=== PATIENT | male | born 1960 | race Caucasian/White ===

== ENCOUNTER 2017-01-24 06:23 | Emergency (ER) | payer OTHER ==
[2017-01-24 06:38] VITALS: BP 187/94; PULSE 97; TEMP 98.9; BMI 26.4
[2017-01-24] MEDS ORDERED: ALBUTEROL SO4 0.083% IH SOL 2.5 MG/3 ML VIAL.NEB. NEB ONE ×2 (07:13→07:46)
[2017-01-24] MEDS ORDERED: diphenhydrAMINE HCL 25 MG CAPSULE (FP) PO ONE ×2 (07:13→07:46)
[2017-01-24] MEDS ORDERED: ACETAMINOPHEN 325 MG TABLET (FP) PO ONE (07:19)
--- NOTE | 2017-01-24 07:20 | PDOC ---
History of Present Illness - General History Source: Patient Exam Limitations: No Limitations - History of Present Illness Initial Comments: 01/24/17 07:25 The patient is a 56 year old male, with a significant past medical history of HTN, who presents to the emergency department with rash and SOB today. The patient reports waking up this morning symptomatic, noting to have a rash across his chest accompanied with SOB. The patient reports his building recently being sprayed with pesticide, to treat a massey problem. He reports since the treatments of pesticide having intermittent episodes of SOB. He also arrives with complaints of a headache. He denies any new soaps, strange foods, or lotions. The patient is here also complaining of right knee pain for which he is scheduled for a TKR within these next couple of months. He denies any recent fevers, chills, or dizziness. He denies any recent nausea, vomit, diarrhea or constipation. He denies any recent chest pain. He denies any recent dysuria, frequency, urgency or hematuria. Allergies: NKA Past surgical history: LEFT TKR. Social History: Former smoker. Denies EtOH use and recreational drug use. <Pierce Lau - Last Filed: 01/24/17 09:50> - General History Source: Patient Exam Limitations: No Limitations <Gio Castellano - Last Filed: 01/25/17 08:07> - General Chief Complaint: Rash Stated Complaint: SOB, RASH Time Seen by Provider: 01/24/17 07:07 Past History <Pierce Lau - Last Filed: 01/24/17 09:50> - Psycho/Social/Smoking Cessation Hx Suicidal Ideation: No Smoking History: Former smoker Have you smoked in the past 12 months: No Information on smoking cessation initiated: No Hx Alcohol Use: No Drug/Substance Use Hx: No <Gio Castellano - Last Filed: 01/25/17 08:07> - Past Medical History Allergies/Adverse Reactions: Allergies Allergy/AdvReac Type Severity Reaction Status Date / Time morphine Allergy Severe Rash;ITCHIN Verified 12/05/16 10:00 G Home Medications: Ambulatory Orders Oxycodone HCl 10 mg PO TID PRN 12/05/16 Albuterol Sulfate Inhaler - [Ventolin HFA Inhaler -] 1 - 2 inh PO Q4H PRN #1 inhaler 01/24/17 Diphenhydramine HCl [Benadryl -] 25 mg PO Q8H PRN #21 capsule 01/24/17 Review of Systems - Review of Systems Able to Perform ROS?: Yes Comments:: 01/24/17 07:25 GENERAL/CONSTITUTIONAL: No fever or chills. No weakness. HEAD, EYES, EARS, NOSE AND THROAT: No change in vision. No ear pain or discharge. No sore throat. CARDIOVASCULAR: +SOB. No chest pain RESPIRATORY: No cough, wheezing, or hemoptysis. GASTROINTESTINAL: No nausea, vomiting, diarrhea or constipation. GENITOURINARY: No dysuria, frequency, or change in urination. MUSCULOSKELETAL: +right knee pain. No joint or muscle swelling or pain. No neck or back pain. SKIN: +rash. NEUROLOGIC: +headache No vertigo, loss of consciousness, or change in strength/ sensation. ENDOCRINE: No increased thirst. No abnormal weight change. HEMATOLOGIC/LYMPHATIC: No anemia, easy bleeding, or history of blood clots. ALLERGIC/IMMUNOLOGIC: No hives or skin allergy. <Pierce Lau - Last Filed: 01/24/17 09:50> *Physical Exam - Vital Signs Last Vital Signs Temp Pulse Resp BP Pulse Ox 98.9 F 97 H 21 187/94 100 01/24/17 06:36 01/24/17 06:36 01/24/17 06:36 01/24/17 06:36 01/24/17 06:36 - Physical Exam Comments: 01/24/17 07:26 GENERAL: Awake, alert, and fully oriented, in no acute distress HEAD: No signs of trauma EYES: PERRLA, EOMI, sclera anicteric, conjunctiva clear ENT: Auricles normal inspection, hearing grossly normal, nares patent, oropharynx clear without exudates. Moist mucosa NECK: Normal ROM, supple, no lymphadenopathy, JVD, or masses LUNGS: Very slight expiratory wheezing and no crackles HEART: Regular rate and rhythm, normal S1 and S2, no murmurs, rubs or gallops ABDOMEN: Soft, nontender, normoactive bowel sounds. No guarding, no rebound. No masses EXTREMITIES: Normal range of motion, no edema. No clubbing or cyanosis. No cords, erythema, or tenderness NEUROLOGICAL: Cranial nerves II through XII grossly intact. Normal speech, normal gait SKIN: Warm, Dry, normal turgor, Mildly erythematous markings on the anterior chest. Non pruritic, and nontender <Pierce Lau - Last Filed: 01/24/17 09:50> - Vital Signs Last Vital Signs Temp Pulse Resp BP Pulse Ox 98.9 F 97 H 21 187/94 100 01/24/17 06:36 01/24/17 06:36 01/24/17 06:36 01/24/17 06:36 01/24/17 06:36 <Gio Castellano - Last Filed: 01/25/17 08:07> Heart Score/ECG Review #1 ECG reviewed & interpreted by me at: 07:20 01/24/17 07:59 NSR 98, no std/anum, submm STD II, III, avF, V6, no anum, QTC 436 msec #2 ECG reviewed & interpreted by me at: 09:30 01/24/17 09:47 NSR 83, STD (RESOLVED) in II, III, avF, and V6, no anum, T wave flat avL, QTC 444 msec <Gio Castellano - Last Filed: 01/25/17 08:07> ED Treatment Course - LABORATORY CBC & Chemistry Diagram: 01/24/17 07:22 01/24/17 07:22 - RADIOLOGY Radiograph Interpretation: 01/24/17 08:11 CHEST X-RAY impressions reported by : NO evidence of active pulmonary disease. <Pierce Lau - Last Filed: 01/24/17 09:50> - LABORATORY CBC & Chemistry Diagram: 01/24/17 07:22 01/24/17 07:22 - RADIOLOGY Radiology Studies Ordered: Category Date Time Status CHEST PA & LAT [RAD] Stat Radiology 01/24/17 07:13 Ordered <Gio Castellano - Last Filed: 01/25/17 08:07> Medical Decision Making - Medical Decision Making 01/24/17 08:45 Call made to [phone], awaiting call back. 01/24/17 08:54 Call back from , case discussed. <Pierce Lau - Last Filed: 01/24/17 09:50> - Medical Decision Making 01/24/17 07:58 A portion of this note was documented by scribe services under my direction. I have reviewed the details of the note, within reason, and agree with the documentation with the following case summary and management plan written by me. Patient treated in the ED. Nursing notes are reviewed and incorporated into the medical decision-making. Vital signs reviewed. Peripheral IV access obtained by the nurse, laboratory studies are drawn and sent, reviewed and interpreted by myself. Vital Signs Temp Pulse Resp BP Pulse Ox 98.9 F 97 H 21 187/94 100 01/24/17 06:36 01/24/17 06:36 01/24/17 06:36 01/24/17 06:36 01/24/17 06:36 56-year-old male with history of hypertension and arthritis presents with shortness of breath and rash. The patient reports in the last several months she 's been having intermittent difficulty breathing and nonpruritic nonpainful rash on his chest. States that he believes this is related to the pesticide spraying that they do in the department. The patient denies chest pain. States that the smell is irritating him and giving a mild tension-like headache. States that the rash on his chest is not itchy. Denies any new other exposures including new shampoos, new soaps, new detergents. There is some very faint expiratory wheezing and the rash symptoms may be secondary to reaction from the pesticide. However, we'll obtain a chest x-ray, labs, EKG, carboxyhemoglobin. Trial Benadryl and albuterol and reassess. 01/24/17 10:14 CBC, BMP 01/24/17 07:22 01/24/17 07:22 CMP Sodium 137 mmol/L (136-145) 01/24/17 07:22 Potassium 3.9 mmol/L (3.5-5.1) 01/24/17 07:22 Chloride 104 mmol/L (98-107) 01/24/17 07:22 Carbon Dioxide 21 mmol/L (21-32) 01/24/17 07:22 Anion Gap 12 (8-16) 01/24/17 07:22 BUN 20 mg/dL (7-18) H 01/24/17 07:22 Creatinine 1.5 mg/dL (0.7-1.3) H 01/24/17 07:22 Creat Clearance w eGFR 48.41 (>60) 01/24/17 07:22 Random Glucose 197 mg/dL (74-106) H 01/24/17 07:22 Calcium 8.7 mg/dL (8.5-10.1) 01/24/17 07:22 Total Bilirubin 0.9 mg/dL (0.2-1.0) 01/24/17 07:22 AST 19 U/L (15-37) 01/24/17 07:22 ALT 34 U/L (12-78) 01/24/17 07:22 Alkaline Phosphatase 94 U/L (45-117) 01/24/17 07:22 Creatine Kinase 93 IU/L (39-308) 01/24/17 07:22 Troponin I 0.02 ng/ml (0.00-0.05) 01/24/17 07:22 Total Protein 7.4 g/dl (6.4-8.2) 01/24/17 07:22 Albumin 4.1 g/dl (3.4-5.0) 01/24/17 07:22 The patient had dynamic EKG changes. Case was discussed with Dr. Walsh, cardiology, who agrees with plan for admission to telemetry. However, the patient diffuse to be admitted to the hospital. He states even with the EKG changes, the patient is not interested in staying given that he is a dog at home. I had given the risks that the patient is at risk for myocardial infarction and . Patient is however upset that I was unable to draw blood tests stating that he had pesticides in his blood. The patient appears to be frustrated that his blood work does not demonstrate any acute finding. I had advised patient that these certain types of blood test to not work that way that certain exposures such as sprays for cockroaches do not show up and blood tests work. The patient has become very upset at me and angry. He states that "he knows there is something wrong with the home, why aren't you telling me the answers?" I suspect that the patient is not the most medically sophisticated as he insists that the blood tests should tell him the answer. Despite the fact that I highly and strongly recommended that he be admitted for further testing, the patient is refusing to be admitted because of his dog at home. After 3 attempts and nearly 10-15 minutes of each discussion regarding the risks and benefits, the patient would like to leave AGAINST MEDICAL ADVICE. He does have capacity despite the situation. I will give referral to a inductor tester and web systems developer and general practitioner. <Gio Castellano - Last Filed: 01/25/17 08:07> *DC/Admit/Observation/Transfer - Attestations Scribe Attestion: 01/24/17 07:27 Documentation prepared by Pierce Lau, acting as medical reception for Gio Castellano MD. <Pierce Lau - Last Filed: 01/24/17 09:50> - Discharge Dispostion Admit: No <Gio Castellano - Last Filed: 01/25/17 08:07> Diagnosis at time of Disposition: Left against medical advice, Shortness of breath - Discharge Dispostion Disposition: AGAINST MEDICAL ADVICE Condition at time of disposition: Stable - Prescriptions Prescriptions: Diphenhydramine HCl [Benadryl -] 25 mg PO Q8H PRN #21 capsule PRN Reason: Itching Albuterol Sulfate Inhaler - [Ventolin HFA Inhaler -] 1 - 2 inh PO Q4H PRN #1 inhaler PRN Reason: Wheezing - Referrals Referrals: Jayden Barrera MD [Staff Physician] - Micheal Walsh MD [Staff Physician] - - Patient Instructions Printed Discharge Instructions: DI for Shortness of Breath Additional Instructions: You are leaving against medical advice. We advise that you speak to your super regarding the spray. Please follow up with a web systems developer and inductor tester. If you have worsening chest pain or shortness of breath, please return to the ER.
[2017-01-24 07:35] LABS: BASOPHIL 0.4 % (0-2.0); EOSINOPHIL 2.4 % (0-4.5); MCH 30.3 pg (25.7-33.7); MCHC 33.5 g/dl (32.0-35.9); MEAN CELL VOLUME 90.6 fl (80-96); MEAN PLT VOLUME 8.8 fl (7.5-11.1); NEUTROPHILS 66.5 % (42.8-82.8); PLATELET COUNT 220 K/MM3 (134-434); RDW 13.6 % (11.9-15.9); WHITE BLOOD COUNT 10.6 K/mm3 (4.0-10.0)
[2017-01-24] MEDS ORDERED: ACETAMINOPHEN 325 MG TABLET (FP) ONE (07:45)
[2017-01-24 07:56] LABS: ALLENS TEST POSITIVE; ART PUNCT SITE RIGHT RADIAL; ARTERIAL BLD GAS O2 SATURATION 97.1 % (90-98.9); ARTERIAL BLOOD GAS BASE EXCESS -1.5 meq/l (-2-2); ARTERIAL BLOOD GAS HCO3 22.9 meq/L (22-26); ARTERIAL BLOOD GAS PO2 87.1 mmHg (80-100); ARTERIAL BLOOD GAS pH 7.38 (7.35-7.45); LPM/O2% 21%; METHEMOGLOBIN 0.5 % (0.4-1.5); PT. ON O2? NO; TYPE OF O2 ROOM AIR
[2017-01-24 08:13] LABS: ALBUMIN 4.1 g/dl (3.4-5.0); BILIRUBIN,TOTAL 0.9 mg/dL (0.2-1.0); CALCIUM 8.7 mg/dL (8.5-10.1); COCKROFT - GAULT 70.55; CREATININE 1.5 mg/dL (0.7-1.3); TOT PROT 7.4 g/dl (6.4-8.2); TROPONIN I 0.02 ng/ml (0.00-0.05)
--- NOTE | 2017-01-24 13:06 | EKG ---
Test Reason : Blood Pressure : / mmHG Vent. Rate : 083 BPM Atrial Rate : 083 BPM P-R Int : 130 ms QRS Dur : 094 ms QT Int : 378 ms P-R-T Axes : 059 037 050 degrees QTc Int : 444 ms NORMAL SINUS RHYTHM POSSIBLE ANTERIOR INFARCT , AGE UNDETERMINED ABNORMAL ECG WHEN COMPARED WITH ECG OF 24-JAN-2017 07:18, T WAVE INVERSION NO LONGER EVIDENT IN INFERIOR LEADS Confirmed by JAIME GERARDO, DANIEL ([id number]) on 01/24/2017 1:06:13 PM Referred By: Confirmed By:DANIEL SANDOVAL MD
--- NOTE | 2017-01-24 13:07 | EKG ---
Test Reason : Blood Pressure : / mmHG Vent. Rate : 098 BPM Atrial Rate : 098 BPM P-R Int : 134 ms QRS Dur : 088 ms QT Int : 342 ms P-R-T Axes : 071 050 -73 degrees QTc Int : 436 ms NORMAL SINUS RHYTHM POSSIBLE LEFT ATRIAL ENLARGEMENT ABNORMAL ECG NO PREVIOUS ECGS AVAILABLE Confirmed by DANIEL SANDOVAL MD ([id number]) on 01/24/2017 1:07:23 PM Referred By: Confirmed By:DANIEL SANDOVAL MD
== END 2017-01-24 10:30 | disposition left against medical advice (07) ==
LOC: JER 06:23
PROC: 3E0F7GC Introduction of Other Therapeutic Substance into Respiratory Tract, Via Natural or Artificial Opening (ICD-10-PCS; principal; 2017-01-24)
DX: R06.02 Shortness of breath (principal); I10 Essential (primary) hypertension; Z87.891 Personal history of nicotine dependence; Z88.8 Allergy status to other drugs, medicaments and biological substances
CPT/HCPCS: 36415; 36600; 71020-TC; 80053; 82375; 82550; 82803; 83050; 84484; 85025; 93005; 93010; 99282-25

== ENCOUNTER 2018-03-16 03:53 | Inpatient (IN) | payer OTHER ==
--- NOTE | 2018-03-16 04:04 | PDOC ---
History of Present Illness - History of Present Illness Initial Comments: 03/16/18 04:28 This 57-year-old man with a past medical history significant for hypertension/ COPD/CAD/CHF/paroxysmal atrial flutter, discharged from [facility] 03/14/18 after a 4 day admission presents with complaint of shortness of breath. Patient states that he had sudden onset of shortness of breath when he was lying in bed at home just prior to presentation. He denies chest pain/ palpitations/cough/fever. He states he has been taking his medications as prescribed except eliquis which is too expensive. <Rajwinder Muller - Last Filed: 03/16/18 07:10> <Amee Kessler - Last Filed: 03/16/18 15:54> - General Chief Complaint: Shortness of Breath Stated Complaint: SOB/ANXIETY Time Seen by Provider: 03/16/18 04:04 Past History - Past Medical History COPD: No Psychiatric Problems: Yes (DEPRESSION) - Surgical History Gastric Stapling: No - Suicide/Smoking/Psychosocial Hx Smoking History: Current every day smoker Have you smoked in the past 12 months: Yes Number of Cigarettes Smoked Daily: 2 'Breaking Loose' booklet given: 03/11/18 Hx Alcohol Use: Yes (social) Drug/Substance Use Hx: No Substance Use Type: None <Rajwinder Muller - Last Filed: 03/16/18 07:10> <Amee Kessler - Last Filed: 03/16/18 15:54> - Past Medical History Allergies/Adverse Reactions: Allergies Allergy/AdvReac Type Severity Reaction Status Date / Time morphine Allergy Severe Rash;ITCHIN Verified 03/16/18 09:27 G Home Medications: Ambulatory Orders Apixaban [Eliquis -] 5 mg PO BID #60 tablet 03/14/18 Carvedilol [Coreg -] 12.5 mg PO BID #60 tablet 03/14/18 Prednisone [Deltasone] See Taper PO ASDIR #21 tablet 03/14/18 Spironolactone [Aldactone -] 25 mg PO DAILY #30 tablet 03/14/18 Valsartan [Diovan] 80 mg PO DAILY #30 tablet 03/14/18 Review of Systems - Review of Systems Able to Perform ROS?: Yes Comments:: 12 point review of systems is negative except for what is noted in the history of present illness <Rajwinder Muller - Last Filed: 03/16/18 07:10> *Physical Exam - Physical Exam Comments: GENERAL: Adult male, diaphoretic and anxious, speaking in partial sentences complaining of shortness of breath Pulse oximetry 95 - 96% on room air; heart rate 150/min, BP 122/82 HEAD: Normal with no signs of trauma. EYES: PERRLA, EOMI, sclera anicteric, conjunctiva clear. ENT: Ears normal, nares patent, oropharynx clear without exudates. Dry mucous membranes. NECK: Normal range of motion, supple without lymphadenopathy, JVD, or masses. LUNGS: Breath sounds equal, inspiratory crackles/scattered expiratory wheezing bilaterally HEART:Regular rate and rhythm, normal S1 and S2 without murmur, rub or gallop. ABDOMEN:.normal bowel sounds No guarding,tenderness or rebound.No masses No distention. neurological deficits. Multiple ecchymotic puncture wound secondary to SQ administration MUSCULOSKELETAL: Back non-tender to palpation, no CVA tenderness SKIN: Warm, Dry, normal turgor, no rashes or lesions noted. 12-lead electrocardiogram performed : Atrial fibrillation with rapid ventricular response,171/min <Rajwinder Muller - Last Filed: 03/16/18 07:10> - Vital Signs Last Vital Signs Temp Pulse Resp BP Pulse Ox 99 F 142 H 24 122/58 99 03/16/18 03:56 03/16/18 06:59 03/16/18 06:25 03/16/18 06:59 03/16/18 05:56 <Amee Kessler - Last Filed: 03/16/18 15:54> ED Treatment Course - LABORATORY CBC & Chemistry Diagram: 03/16/18 04:55 03/16/18 04:55 <Rajwinder Muller - Last Filed: 03/16/18 07:10> - LABORATORY CBC & Chemistry Diagram: 03/16/18 04:55 03/16/18 09:04 - ADDITIONAL ORDERS Additional order review: Laboratory Results 03/16/18 03/16/18 04:55 04:55 PT with INR 13.50 H INR 1.19 H Sodium 134 L Potassium 5.5 H Chloride 101 Carbon Dioxide 24 Anion Gap 9 BUN 42 H Creatinine 1.7 H Creat Clearance w eGFR 41.75 Random Glucose 174 H Calcium 9.0 Total Bilirubin 0.6 AST 18 D ALT 36 Alkaline Phosphatase 116 Creatine Kinase 110 Troponin I 0.22 H Total Protein 7.1 Albumin 3.1 L 03/16/18 04:55 RBC 4.40 MCV 92.4 MCHC 33.2 RDW 14.0 MPV 8.3 Neutrophils % 77.2 Lymphocytes % 12.5 D Monocytes % 9.9 D Eosinophils % 0.3 D Basophils % 0.1 - Medications Given in the ED: ED Medications Discontinued Medications Generic Name Dose Route Start Last Admin Trade Name Freq PRN Reason Stop Dose Admin Apixaban 5 mg 03/16/18 06:20 03/16/18 06:24 Eliquis - PO 03/16/18 06:21 5 mg ONCE ONE Administration Diltiazem HCl 10 mg 03/16/18 05:05 03/16/18 05:10 Cardizem Injection - IVPUSH 03/16/18 05:06 10 mg ONCE ONE Administration Diltiazem HCl 10 mg 03/16/18 05:59 03/16/18 06:02 Cardizem Injection - IVPUSH 03/16/18 06:00 10 mg ONCE ONE Administration Ondansetron HCl 4 mg 03/16/18 05:48 03/16/18 05:56 Zofran Injection IVPUSH 03/16/18 05:49 4 mg ONCE ONE Administration <Amee Kessler - Last Filed: 03/16/18 15:54> Medical Decision Making - Medical Decision Making 03/16/18 05:11 This 57-year-old man with history of A. fib/LV dysfunction presents with shortness of breath. EKG reveals A. fib with RVR 170/minute range. Patient has some fine rhonchi/scattered wheezing on lung exam. CBC/chemistry profile/cardiac enzymes sent Cardizem 10 mg IV to be administered for rate control 03/16/18 05:38 Patient continues to be in atrial fibrillation at a rate of 140-150/minute after first dose of Cardizem 10 mg IV. Patient decided to sign out AGAINST MEDICAL ADVICE and IV access was removed. Patient signed AMA form stating that he will was going to proceed to [facility] ER for further care, with his niece driving him to the hospital. Patient returned to the ER approximately 5 minutes later, stating that he now wanted to be treated here 03/16/18 06:01 IV access reestablished. Patient complaining of nausea. 4 mg Zofran IV given. Vital signs: Heart rate 144/minute, BP 126/87, pulse oximetry 97% on 4l/min Additional 10 mg Cardizem IV given Portable chest x-ray: As compared to previous study this 03/11/18, some increase in cephalization of flow and new right lower lobe patchy infiltrate 03/16/18 06:29 A. fib at 150/minute persists; Cardizem continuous infusion 5 mg per hr started bp114/72 Labs notable for troponin is 0.22 , BUN 42/creatinine 1.7 ,K 5.5, WBC 14,[address] Clayton in ICU at [facility]: Critical patient from ER at [facility] will likely take only bed open now but there is possibility of an additional ICU bed being available soon. Also, this patient may be stable enough for admission to telemetry bed. Cardiology consult called to Dr Burrell. Case discussed with MIGUELINA Almazan Case signed out to Dr Kessler at end of shift <Rajwinder Muller - Last Filed: 03/16/18 07:10> - Medical Decision Making 03/16/18 07:26 Patient signed out to me by Dr. Muller at shift change. Accepted to hospitalist service, ICU at [facility]. Awaiting bed placement. Currently on cardizem drip. 03/16/18 07:54 Case d/w Dr. Mesa, covering Dr. Burrell. Recommended lopressor 5 mg IV in addition to the cardizem drip. Will evaluate the patient at [facility]. 03/16/18 08:07 Pt with hypotension, will hold cardizem drip and recheck BP. 03/16/18 12:43 Pt was restarted on cardizem drip, again developed hypotension. Drip held again. D/w hospitalist JOSEPHINE Sims. 03/16/18 13:08 Pt spontaneously converted back to sinus rhythm. BP improving, MAP >65. Will cont to monitor. <Amee Kessler - Last Filed: 03/16/18 15:54> *DC/Admit/Observation/Transfer <Rajwinder Muller - Last Filed: 03/16/18 07:10> - Discharge Dispostion Decision to Admit order: Yes <Amee Kessler - Last Filed: 03/16/18 15:54> Diagnosis at time of Disposition: Shortness of breath, Paroxysmal atrial fibrillation, Systolic dysfunction with heart failure - Discharge Dispostion Condition at time of disposition: Critical
[2018-03-16 04:06] VITALS: BMI 29.0
[2018-03-16] MEDS ORDERED: dilTIAZem HCL 50 MG/10 ML - 10 ML VIAL ONE ×2 (05:05→06:13)
[2018-03-16] MEDS ORDERED: dilTIAZem HCL 50 MG/10 ML - 10 ML VIAL IVPUSH ONE ×2 (05:05→05:59)
[2018-03-16 05:39] LABS: BASO % 0.1 % (0-2.0); EOS % 0.3 % (0-4.5); HEMATOCRIT 40.7 % (35.4-49); HEMOGLOBIN 13.5 GM/dL (11.7-16.9); LYMPH % 12.5 % (8-40); MCH 30.6 pg (25.7-33.7); MCHC 33.2 g/dl (32.0-35.9); MEAN CELL VOLUME 92.4 fl (80-96); MEAN PLT VOLUME 8.3 fl (7.5-11.1); MONO % 9.9 % (3.8-10.2); NEUT % 77.2 % (42.8-82.8); PLATELET COUNT 618 K/MM3 (134-434); WHITE BLOOD COUNT 14.2 K/mm3 (4.0-10.0)
[2018-03-16] MEDS ORDERED: ONDANSETRON 4 MG/2 ML VIAL IVPUSH ONE (05:48)
[2018-03-16] MEDS ORDERED: ONDANSETRON 4 MG/2 ML VIAL ONE (05:50)
[2018-03-16 05:59] LABS: INR 1.19 (0.83-1.09); PROTHROMBIN TIME (PATIENT) 13.5 SEC (9.7-13.0)
[2018-03-16] MEDS ORDERED: APIXABAN 5 MG TABLET PO ONE (06:20)
[2018-03-16] MEDS ORDERED: DILTIAZEM INJECTION 125 MG in DEXTROSE 5%-WATER - 100 ML IVPB SCH (06:30)
[2018-03-16 06:31] LABS: ALBUMIN 3.1 g/dl (3.4-5.0); ANION GAP 9 (8-16); BILIRUBIN,TOTAL 0.6 mg/dL (0.2-1.0); BLOOD UREA NITROGEN 42 mg/dL (7-18); CHLORIDE 101 mmol/L (98-107); CO2 24 mmol/L (21-32); CREATININE 1.7 mg/dL (0.7-1.3); GLUCOSE,RANDOM 174 mg/dL (74-106); POTASSIUM 5.5 mmol/L (3.5-5.1); SGOT/AST 18 U/L (15-37); SGPT/ALT 36 U/L (12-78); SODIUM 134 mmol/L (136-145); TOT PROT 7.1 g/dl (6.4-8.2)
[2018-03-16 06:34] LABS: ALK PHOS 116 U/L (45-117)
[2018-03-16] MEDS ORDERED: SODIUM CHLORIDE 500 ML IV STA (06:58)
[2018-03-16 08:17] LABS: URINE APPEARANCE CLEAR; URINE BILIRUBIN NEGATIVE (NEGATIVE); URINE COLOR AMBER; URINE GLUCOSE (UA) NEGATIVE (NEGATIVE)
[2018-03-16 08:18] LABS: PH,URINE 5.5 (4.5-8); URINE KETONE NEGATIVE (NEGATIVE); URINE LEUK ESTERASE NEGATIVE (NEGATIVE); URINE NITRITE NEGATIVE (NEGATIVE); URINE PROTEIN 1+ (NEGATIVE); URINE UROBILINOGEN 0.2 (0.2-1.0)
[2018-03-16 08:54] LABS: URINE WBC 0-2 (0-2)
--- NOTE | 2018-03-16 08:58 | HP ---
CHIEF COMPLAINT: Shortness of breath PCP: None HISTORY OF PRESENT ILLNESS: 57 year-old male with a PMH significant for HTN, biventricular heart failure, paroxysmal afib, CAD, CKD, DJD s/p recent right knee replacement at [facility], depression, anxiety, and substance abuse. Patient was hospitalized at [facility] from 03/11-03/14/18 for afib and SOB. He presented to the [place] ED early this morning with a complaint of SOB while lying in bed. Initial ECG revealed afib with RVR to 170bpm. Treatment was started and patient decided to leave. He signed out AMA. Five minutes later he returned to the ED stating he wanted be treated. Utox positive for opioids, amphetamines, ectasy, and marijuana. Recent Travel: No PAST MEDICAL HISTORY Hypertension Biventricular heart failure Paroxysmal atrial fibrillation on Eliquis Coronary artery disease Chronic kidney disease Degenerative joint disease Depression/anxiety Substance abuse (oxycodone and adderall) PAST SURGICAL HISTORY: Right knee replacement Social History: Smoking: current every day Alcohol: denies Drugs: denies but ISTOP shows heavy use oxycodone and adderall Family History: Allergies morphine Allergy (Severe, Verified 03/11/18 03:24) Rash;ITCHING HOME MEDICATIONS: Home Medications Medication Instructions Recorded Apixaban [Eliquis -] 5 mg PO BID #60 tablet 03/14/18 Carvedilol [Coreg -] 12.5 mg PO BID #60 tablet 03/14/18 Prednisone [Deltasone] See Taper PO ASDIR #21 tablet 03/14/18 Spironolactone [Aldactone -] 25 mg PO DAILY #30 tablet 03/14/18 Valsartan [Diovan] 80 mg PO DAILY #30 tablet 03/14/18 REVIEW OF SYSTEMS CONSTITUTIONAL: Absent: fever, chills, diaphoresis, generalized weakness, malaise, loss of appetite, weight change HEENT: Absent: rhinorrhea, nasal congestion, throat pain, throat swelling, difficulty swallowing, mouth swelling, ear pain, eye pain, visual changes CARDIOVASCULAR: Absent: chest pain, syncope, palpitations, irregular heart rate, lightheadedness , peripheral edema RESPIRATORY: +shortness of breath Absent: cough, dyspnea with exertion, orthopnea, wheezing, stridor, hemoptysis GASTROINTESTINAL: Absent: abdominal pain, abdominal distension, nausea, vomiting, diarrhea, constipation, melena, hematochezia GENITOURINARY: Absent: dysuria, frequency, urgency, hesitancy, hematuria, flank pain, genital pain MUSCULOSKELETAL: Absent: myalgia, arthralgia, joint swelling, back pain, neck pain SKIN: Absent: rash, itching, pallor HEMATOLOGIC/IMMUNOLOGIC: Absent: easy bleeding, easy bruising, lymphadenopathy, frequent infections ENDOCRINE: Absent: unexplained weight gain, unexplained weight loss, heat intolerance, cold intolerance NEUROLOGIC: Absent: headache, focal weakness or paresthesias, dizziness, unsteady gait, seizure, mental status changes, bladder or bowel incontinence PSYCHIATRIC: Absent: anxiety, depression, suicidal or homicidal ideation, hallucinations. PHYSICAL EXAMINATION Vital Signs - 24 hr 03/16/18 03/16/18 03/16/18 03:56 04:50 05:21 Temperature 99 F Pulse Rate 88 Pulse Rate [ 158 H 149 H Apical] Respiratory 20 20 22 Rate Blood Pressure 138/90 Blood Pressure 122/82 137/90 [Left Arm] O2 Sat by Pulse 99 100 97 Oximetry (%) 03/16/18 03/16/18 03/16/18 05:56 06:25 06:30 Temperature Pulse Rate 146 H Pulse Rate [ 144 H 155 H Apical] Respiratory 21 24 Rate Blood Pressure 114/72 Blood Pressure 126/87 114/72 [Left Arm] O2 Sat by Pulse 99 Oximetry (%) 03/16/18 03/16/18 03/16/18 06:42 06:59 07:20 Temperature Pulse Rate 156 H 142 H 138 H Pulse Rate [ Apical] Respiratory Rate Blood Pressure 114/65 122/58 70/30 Blood Pressure [Left Arm] O2 Sat by Pulse Oximetry (%) 03/16/18 03/16/18 03/16/18 07:26 07:50 08:08 Temperature Pulse Rate Pulse Rate [ 144 H 155 H 131 H Apical] Respiratory 25 H 19 Rate Blood Pressure Blood Pressure 113/70 71/40 95/63 [Left Arm] O2 Sat by Pulse 96 Oximetry (%) 03/16/18 03/16/18 08:25 08:41 Temperature Pulse Rate Pulse Rate [ 123 H 124 H Apical] Respiratory Rate Blood Pressure Blood Pressure 106/41 114/58 [Left Arm] O2 Sat by Pulse Oximetry (%) GENERAL: Awake, alert, and fully oriented, in no acute distress. HEAD: Normal with no signs of trauma. LUNGS: Poor inspiratory effort HEART: Irregular, rapid S1, S2 ABDOMEN: Soft, nontender, not distended UPPER EXTREMITIES: 2+ pulses, warm, well-perfused. No cyanosis. No clubbing. No peripheral edema. RIGHT LOWER EXTREMITY: Surgical scar is reddened, medial aspect very warm, serosanguinous drainage NEUROLOGICAL: Cranial nerves II-XII intact. Normal speech. Laboratory Results - last 24 hr 03/16/18 03/16/18 03/16/18 04:55 04:55 04:55 WBC 14.2 H RBC 4.40 Hgb 13.5 Hct 40.7 MCV 92.4 MCH 30.6 MCHC 33.2 RDW 14.0 Plt Count 618 H D MPV 8.3 Absolute Neuts (auto) 11.0 Neutrophils % 77.2 Lymphocytes % 12.5 D Monocytes % 9.9 D Eosinophils % 0.3 D Basophils % 0.1 Nucleated RBC % 0 PT with INR 13.50 H INR 1.19 H Sodium 134 L Potassium 5.5 H Chloride 101 Carbon Dioxide 24 Anion Gap 9 BUN 42 H Creatinine 1.7 H Creat Clearance w eGFR 41.75 Random Glucose 174 H Calcium 9.0 Total Bilirubin 0.6 AST 18 D ALT 36 Alkaline Phosphatase 116 Creatine Kinase 110 Troponin I 0.22 H Total Protein 7.1 Albumin 3.1 L Urine Color Urine Appearance Urine pH Ur Specific [place] Urine Protein Urine Glucose (UA) Urine Ketones Urine Blood Urine Nitrite Urine Bilirubin Urine Urobilinogen Ur Leukocyte Esterase Urine RBC Urine WBC 03/16/18 07:53 WBC RBC Hgb Hct MCV MCH MCHC RDW Plt Count MPV Absolute Neuts (auto) Neutrophils % Lymphocytes % Monocytes % Eosinophils % Basophils % Nucleated RBC % PT with INR INR Sodium Potassium Chloride Carbon Dioxide Anion Gap BUN Creatinine Creat Clearance w eGFR Random Glucose Calcium Total Bilirubin AST ALT Alkaline Phosphatase Creatine Kinase Troponin I Total Protein Albumin Urine Color Miguelina Urine Appearance Clear Urine pH 5.5 Ur Specific [place] 1.015 Urine Protein 1+ H Urine Glucose (UA) Negative Urine Ketones Negative Urine Blood Negative Urine Nitrite Negative Urine Bilirubin Negative Urine Urobilinogen 0.2 Ur Leukocyte Esterase Negative Urine RBC No Result Required. Urine WBC 0-2 Imaging 03/12/2018 Echo: Mild-mod decreased LV fxn, normal RV fxn, mild LAE, mild MR Assessment & Plan 57 year-old male with a PMH significant for HTN, biventricular heart failure, paroxysmal afib, CAD, CKD, DJD s/p recent right knee replacement at [facility], depression, anxiety, and substance abuse. Admitted for afib with RVR with hemodynamic instability. Afib with RVR --cardizem drip started in ED twice, both times BP dropped and drip stopped --500cc bolus of NS given to support BP --converted to SR in 90s --continue apixaban --continue carvedilol --transferred to ICU Polysubstance abuse --urine tox positive for amphetamines, marijuana, ecstasy, opiates --ISTOP shows heavy use of oxycodone and adderall --extremely agitated in ED, verbally abuse to staff; became diaphoretic, gave ativan 2mg x 1 Systolic/diastolic LV dysfunction with chronic class I-II NYHA classification LV failure --low volume state on arrival, gave ~1L fluids --continue spironolactone Coronary artery disease --continue carvedilol Hypertension --continue carvedilol, valsartan, spironolactone Acute on chronic renal insufficiency --Cr 1.7 on admission, 1.1 baseline --fluids given in ED --repeat bmp in am Degenerative joint disease s/p right knee replacement Inflammation v. infection right knee --surgical sutures still in situ, patient has not returned to surgeon at [facility] --marked difference in right knee since discharge two days ago: swelling, warmth, drainage --CT right knee: s/p right knee replacement, satisfactory alignment, moderate amount of suprapatellar joint effusion --afebrile, + leukocytosis --start empiric Vanc and Zosyn; esr, crp pending --ID and ortho consults COPD --duonebs PRN FEN Fluids: PO intake adequate Electrolytes: replete as indicated Nutrition: low sodium DVT prophylaxis: on Eliquis Physical therapy Dispo: continues to require inpatient care. Full code. Visit type - Emergency Visit Emergency Visit: Yes ED Registration Date: 03/16/18 Care time: The patient presented to the Emergency Department on the above date and was hospitalized for further evaluation of their emergent condition. - New Patient This patient is new to me today: Yes Date on this admission: 03/16/18 - Critical Care Critical Care patient: Yes Total Critical Care Time (in minutes): 120 Critical Care Statement: The care of this patient involved high complexity decision making to prevent further life threatening deterioration of the patient 's condition and/or to evaluate & treat vital organ system(s) failure or risk of failure. Hospitalist Screening - Colonoscopy Questionnaire Colonoscopy Questionnaire: Colonoscopy Questionnaire - Patient: 50 - 75 years old and never had a screening colonoscopy: Unknown History of colon or rectal polyps, or CA: Unknown History of IBD, Crohn's disease or UC: Unknown History of abdominal radiation therapy as a child: Unknown - Relative: 1 with colon or rectal CA, or polyps at age 60 or younger: Unknown Colon or rectal CA diagnosed at age 45 or younger: Unknown Multiple relatives with colon or rectal CA: Unknown - Outcome: Screening Result: Negative Screen
--- NOTE | 2018-03-16 09:02 | EKG ---
Test Reason : Blood Pressure : / mmHG Vent. Rate : 171 BPM Atrial Rate : 208 BPM P-R Int : 000 ms QRS Dur : 090 ms QT Int : 264 ms P-R-T Axes : 000 064 245 degrees QTc Int : 445 ms ATRIAL FIBRILLATION WITH RAPID VENTRICULAR RESPONSE MINIMAL VOLTAGE CRITERIA FOR LVH, MAY BE NORMAL VARIANT ABNORMAL ECG WHEN COMPARED WITH ECG OF 12-MAR-2018 10:33, ATRIAL FIBRILLATION HAS REPLACED SINUS RHYTHM VENT. RATE HAS INCREASED BY 87 BPM T WAVE INVERSION NOW EVIDENT IN INFERIOR LEADS INVERTED T WAVES HAVE REPLACED NONSPECIFIC T WAVE ABNORMALITY IN LATERAL LEADS Confirmed by DANIEL SANDOVAL MD ([id number]) on 03/16/2018 9:01:58 AM Referred By: MD LANGE Confirmed By:DANIEL SANDOVAL MD
[2018-03-16 09:22] LABS: ANION GAP 9 (8-16); BLOOD UREA NITROGEN 40 mg/dl (7-18); CALCIUM 8.6 mg/dl (8.4-10.2); CHLORIDE 103 mmol/L (98-107); CO2 21 mmol/L (22-28); CREATININE 1.4 mg/dl (0.6-1.3); GLUCOSE,RANDOM 197 mg/dl (74-106); SODIUM 133 mmol/L (136-145)
[2018-03-16] MEDS ORDERED: VANCOMYCIN 1,500 MG in DEXTROSE 5%-WATER - 250 ML IVPB SCH (09:30)
[2018-03-16] MEDS ORDERED: PIPERACILLIN/TAZOBACTAM 3.375 GM VIAL IVPB ONE ×2 (09:47→18:14)
[2018-03-16 09:49] LABS: COCAINE, UR NEGATIVE ng/ml (CUTOFF=300); OPIATES, URI POSITIVE ng/ml (CUTOFF=300); URINE BARBITURATES NEGATIVE ng/ml (CUTOFF=200); URINE BENZODIAZEPINES NEGATIVE ng/ml (CUTOFF=200)
[2018-03-16 09:50] LABS: METHADONE, UR NEGATIVE ng/ml (CUTOFF=300); PHENCYCLIDINE,URINE NEGATIVE ng/ml (CUTOFF=25); URINE AMPHETAMINES POSITIVE ng/ml (CUTOFF=500)
[2018-03-16] MEDS ORDERED: LORazepam 2 MG/ML SDV VIAL ONE (09:57)
[2018-03-16] MEDS ORDERED: APIXABAN 5 MG TABLET PO SCH ×2 (10:00→22:30)
[2018-03-16] MEDS: PIPERACILLIN/TAZOB 3.375 GM 3.375 GM in DEXTROSE 5%-WATER - 50 ML IVPB SCH ×2 (10:25→18:17)
[2018-03-16] MEDS ORDERED: VANCOMYCIN 1,000 MG VIAL (RESTRICTED TO ID ONLY) ONE (10:28)
[2018-03-16] MEDS ORDERED: VANCOMYCIN 500 MG VIAL (RESTRICTED TO ID ONLY) ONE (10:28)
[2018-03-16] MEDS ORDERED: SODIUM CHLORIDE 500 ML IV SCH (11:30)
[2018-03-16] MEDS ORDERED: SODIUM CHLORIDE 1,000 ML IV SCH (13:00)
--- NOTE | 2018-03-16 18:13 | CONSULT ---
Consultation: CONSULT REQUEST: We have been asked to medically evaluate this patient for critical care. HISTORY OF PRESENT ILLNESS: 57 y/o M w/PMH of HTN, polysubstance abuse, COPD, CHF, recent R TKR 3 weeks ago at [facility] with Dr. Mueller presented to the ER with sudden onset of SOB. Hx was mostly obtained by chart records as pt is non-cooperative with history and physical. According to charts pt was in bed at home and had sudden onset of SOB w/o CP, palpitations, cough or fever. Utox was found positive for opiates, amphetamines, MDMA, and THC. Pt found to be in Afib w/RVR and treated with cardizem IV 10 mg x2 and drip. Pt converted to NSR while on drip and drip was stopped. According to notes pt was compliant with his meds except for eliquis as it was too expensive. Currently pt states he feels well, has not fallen, has no R knee pain, is able to walk on his R knee without issue. Does not recall where and when he had knee surgery on his R knee but according to charts it was approx 3 weeks ago at [facility]/Dr. Mueller. REVIEW OF SYSTEMS: Could not obtain as pt is non-cooperative PHYSICAL EXAMINATION Vital Signs - 24 hr 03/16/18 03/16/18 03/16/18 03:56 04:50 05:21 Temperature 99 F Pulse Rate 88 Pulse Rate [ 158 H 149 H Apical] Respiratory 20 20 22 Rate Blood Pressure 138/90 Blood Pressure 122/82 137/90 [Left Arm] O2 Sat by Pulse 99 100 97 Oximetry (%) 03/16/18 03/16/18 03/16/18 05:56 06:25 06:30 Temperature Pulse Rate 146 H Pulse Rate [ 144 H 155 H Apical] Respiratory 21 24 Rate Blood Pressure 114/72 Blood Pressure 126/87 114/72 [Left Arm] O2 Sat by Pulse 99 Oximetry (%) 03/16/18 03/16/18 03/16/18 06:42 06:59 07:20 Temperature Pulse Rate 156 H 142 H 138 H Pulse Rate [ Apical] Respiratory Rate Blood Pressure 114/65 122/58 70/30 Blood Pressure [Left Arm] O2 Sat by Pulse Oximetry (%) 03/16/18 03/16/18 03/16/18 07:26 07:50 08:08 Temperature Pulse Rate Pulse Rate [ 144 H 155 H 131 H Apical] Respiratory 25 H 19 Rate Blood Pressure Blood Pressure 113/70 71/40 95/63 [Left Arm] O2 Sat by Pulse 96 Oximetry (%) 03/16/18 03/16/18 03/16/18 08:25 08:41 09:08 Temperature Pulse Rate Pulse Rate [ 123 H 124 H 139 H Apical] Respiratory Rate Blood Pressure Blood Pressure 106/41 114/58 121/89 [Left Arm] O2 Sat by Pulse 98 Oximetry (%) 03/16/18 03/16/18 03/16/18 09:22 10:29 11:06 Temperature Pulse Rate Pulse Rate [ 142 H 135 H 146 H Apical] Respiratory 18 Rate Blood Pressure Blood Pressure 102/76 104/66 122/66 [Left Arm] O2 Sat by Pulse 98 96 Oximetry (%) 03/16/18 03/16/18 03/16/18 11:10 12:12 12:20 Temperature Pulse Rate Pulse Rate [ 136 H 137 H 146 H Apical] Respiratory 20 Rate Blood Pressure Blood Pressure 118/80 102/60 72/56 [Left Arm] O2 Sat by Pulse 97 Oximetry (%) 03/16/18 03/16/18 03/16/18 12:28 12:40 12:51 Temperature Pulse Rate Pulse Rate [ 145 H 151 H 150 H Apical] Respiratory Rate Blood Pressure Blood Pressure 100/75 70/53 96/62 [Left Arm] O2 Sat by Pulse Oximetry (%) 03/16/18 03/16/18 03/16/18 13:12 13:43 13:44 Temperature Pulse Rate 92 H Pulse Rate [ 90 99 H Apical] Respiratory 19 Rate Blood Pressure 124/73 Blood Pressure 98/54 124/73 [Left Arm] O2 Sat by Pulse Oximetry (%) 03/16/18 03/16/18 03/16/18 14:43 15:31 15:33 Temperature 98.4 F Pulse Rate Pulse Rate [ 92 H 99 H Apical] Respiratory 19 Rate Blood Pressure Blood Pressure 110/78 124/94 [Left Arm] O2 Sat by Pulse 98 99 Oximetry (%) 03/16/18 16:30 Temperature 98.8 F Pulse Rate 99 H Pulse Rate [ Apical] Respiratory 19 Rate Blood Pressure 118/75 Blood Pressure [Left Arm] O2 Sat by Pulse 99 Oximetry (%) PHYSICAL EXAM Could not obtain as pt is non-cooperative with exam Laboratory Results - last 24 hr 03/16/18 03/16/18 03/16/18 04:55 04:55 04:55 WBC 14.2 H RBC 4.40 Hgb 13.5 Hct 40.7 MCV 92.4 MCH 30.6 MCHC 33.2 RDW 14.0 Plt Count 618 H D MPV 8.3 Absolute Neuts (auto) 11.0 Neutrophils % 77.2 Lymphocytes % 12.5 D Monocytes % 9.9 D Eosinophils % 0.3 D Basophils % 0.1 Nucleated RBC % 0 PT with INR 13.50 H INR 1.19 H Sodium 134 L Potassium 5.5 H Chloride 101 Carbon Dioxide 24 Anion Gap 9 BUN 42 H Creatinine 1.7 H Creat Clearance w eGFR 41.75 Random Glucose 174 H Calcium 9.0 Total Bilirubin 0.6 AST 18 D ALT 36 Alkaline Phosphatase 116 Creatine Kinase 110 Troponin I 0.22 H Total Protein 7.1 Albumin 3.1 L Urine Color Urine Appearance Urine pH Ur Specific [place] Urine Protein Urine Glucose (UA) Urine Ketones Urine Blood Urine Nitrite Urine Bilirubin Urine Urobilinogen Ur Leukocyte Esterase Urine RBC Urine WBC Opiates Screen Methadone Screen Barbiturate Screen Phencyclidine Screen Ur Amphetamines Screen MDMA (Ecstasy) Screen Benzodiazepines Screen Cocaine Screen U Marijuana (THC) Screen 03/16/18 03/16/18 03/16/18 07:53 07:53 09:04 WBC RBC Hgb Hct MCV MCH MCHC RDW Plt Count MPV Absolute Neuts (auto) Neutrophils % Lymphocytes % Monocytes % Eosinophils % Basophils % Nucleated RBC % PT with INR INR Sodium 133 L Potassium 5.0 Chloride 103 Carbon Dioxide 21 L Anion Gap 9 BUN 40 H Creatinine 1.4 H Creat Clearance w eGFR 52.24 Random Glucose 197 H Calcium 8.6 Total Bilirubin AST ALT Alkaline Phosphatase Creatine Kinase 78 Troponin I Total Protein Albumin Urine Color Miguelina Urine Appearance Clear Urine pH 5.5 Ur Specific [place] 1.015 Urine Protein 1+ H Urine Glucose (UA) Negative Urine Ketones Negative Urine Blood Negative Urine Nitrite Negative Urine Bilirubin Negative Urine Urobilinogen 0.2 Ur Leukocyte Esterase Negative Urine RBC No Result Required. Urine WBC 0-2 Opiates Screen Positive Methadone Screen Negative Barbiturate Screen Negative Phencyclidine Screen Negative Ur Amphetamines Screen Positive MDMA (Ecstasy) Screen Positive Benzodiazepines Screen Negative Cocaine Screen Negative U Marijuana (THC) Screen Positive 03/16/18 09:04 WBC RBC Hgb Hct MCV MCH MCHC RDW Plt Count MPV Absolute Neuts (auto) Neutrophils % Lymphocytes % Monocytes % Eosinophils % Basophils % Nucleated RBC % PT with INR INR Sodium Potassium Chloride Carbon Dioxide Anion Gap BUN Creatinine Creat Clearance w eGFR Random Glucose Calcium Total Bilirubin AST ALT Alkaline Phosphatase Creatine Kinase Troponin I 0.10 H Total Protein Albumin Urine Color Urine Appearance Urine pH Ur Specific [place] Urine Protein Urine Glucose (UA) Urine Ketones Urine Blood Urine Nitrite Urine Bilirubin Urine Urobilinogen Ur Leukocyte Esterase Urine RBC Urine WBC Opiates Screen Methadone Screen Barbiturate Screen Phencyclidine Screen Ur Amphetamines Screen MDMA (Ecstasy) Screen Benzodiazepines Screen Cocaine Screen U Marijuana (THC) Screen Active Medications Generic Name Dose Route Start Last Admin Trade Name Freq PRN Reason Stop Dose Admin Diltiazem HCl 125 mg/ Dextrose 125 mls @ 5 mls/hr 03/16/18 06:30 03/16/18 12: 29 IVPB 0 mg/hr TITR CHIP 0 mls/hr Titration Protocol 5 MG/HR Vancomycin HCl 1,500 mg/ 250 mls @ 166.667 mls/hr 03/16/18 09:30 03/16/18 10: 25 Dextrose IVPB 166.667 mls/hr Q12H CHIP Administration Protocol Piperacillin Sod/Tazobactam 50 mls @ 100 mls/hr 03/16/18 10:00 03/16/18 10:25 Sod 3.375 gm/ Dextrose IVPB 100 mls/hr Q8H-IV CHIP Administration Protocol ASSESSMENT/PLAN: 57 y/o M w/PMH of HTN, polysubstance abuse, COPD, CHF, recent R TKR 3 weeks ago at [facility] with Dr. Mueller presented to the ER with sudden onset of SOB. Found to be in Afib w/RVR and subsequently transferred to ICU and converted to NSR on dilt drip. -SOB secondary to Afib w/RVR -NSR now, off dilt drip -will restart home meds -carvedilol, spironolactone, diovan -home ac is eliquis. c/w eliquis -consider another medication for AC if too expensive for patient -CXR in am -polysubstance abuse -no active signs of w/d -utox positive for opiates, amphetamines, MDMA, and THC. -R knee - possible cellulitis vs less likely septic joint -Spoke with Dr. Alfonso regarding knee - would like to check ESR, CRP, hold abx for now -Surgical site dry and not draining pus or blood; pt w/o pain in knee; states he is able to walk and bear weight on knee without issue. -TAMARA on CKD -Cr improved s/p fluids and heart rate control -will continue to trend and monitor -DVT ppx -on eliquis -FEN -No fluids at this time -Monitor electrolytes -Sodium controlled diet Dispo: If pt continues to remain stable and off drip can transfer to tele. Visit type - Emergency Visit Emergency Visit: Yes ED Registration Date: 03/16/18 Care time: The patient presented to the Emergency Department on the above date and was hospitalized for further evaluation of their emergent condition. - New Patient This patient is new to me today: Yes Date on this admission: 03/16/18 - Critical Care Critical Care patient: Yes Total Critical Care Time (in minutes): 40 Critical Care Statement: The care of this patient involved high complexity decision making to prevent further life threatening deterioration of the patient 's condition and/or to evaluate & treat vital organ system(s) failure or risk of failure.
[2018-03-16] MEDS ORDERED: DEXTROSE 5%-WATER - 50 ML IVPB ONE (18:14)
[2018-03-16] MEDS ORDERED: VANCOMYCIN 1,500 MG in DEXTROSE 5%-WATER - 500 ML IVPB SCH (21:30)
[2018-03-16] MEDS ORDERED: CARVEDILOL 12.5 MG TABLET (FP) PO SCH (22:00)
[2018-03-16] MEDS ORDERED: ALBUTEROL SO4 2.5/IPRATROPIUM 0.5 INH SOL 3 ML VIAL.NEB. NEB PRN (23:14)
[2018-03-17] MEDS: PIPERACILLIN/TAZOB 3.375 GM 3.375 GM in DEXTROSE 5%-WATER - 50 ML IVPB SCH (02:17)
[2018-03-17] MEDS ORDERED: PIPERACILLIN/TAZOBACTAM 3.375 GM VIAL IVPB ONE ×2 (03:15→08:18)
[2018-03-17] MEDS ORDERED: DEXTROSE 5%-WATER - 50 ML IVPB ONE ×2 (03:16→08:18)
[2018-03-17] MEDS ORDERED: guaiFENesin 200 MG/10 ML 10 ML UNIT-DOSE CUPS PO PRN ×2 (03:21→07:54)
[2018-03-17 06:17] VITALS: TEMP 98.9
[2018-03-17 06:22] LABS: BASO % 0.1 % (0-2.0); EOS % 2.7 % (0-4.5); HEMATOCRIT 35.4 % (35.4-49); HEMOGLOBIN 12.2 GM/dL (11.7-16.9); LYMPH % 19.8 % (8-40); MCH 31.5 pg (25.7-33.7); MCHC 34.4 g/dl (32.0-35.9); MEAN CELL VOLUME 91.6 fl (80-96); MEAN PLT VOLUME 7.9 fl (7.5-11.1); MONO % 8.6 % (3.8-10.2); NEUT % 68.8 % (42.8-82.8); PLATELET COUNT 499 K/MM3 (134-434); RBC 3.86 M/mm3 (4.00-5.60); RDW 13.6 % (11.9-15.9); WHITE BLOOD COUNT 8.5 K/mm3 (4.0-10.0)
--- NOTE | 2018-03-17 07:06 | PN ---
Progress Note (short form) - Note Progress Note: Chief Complaint: Events noted, notes reviewed, presented with sudden onset shortness of breath, currently denies any chest pain, developed rapid atrial fibrillation which converted to sinus rhythm History of Present Illness: Seen and examined on telemetry. Full consult dictated July 2017 Dobutamine MPI study: revealed moderately dilated LV with LVEF 28% , perinfarct ischemia, moderate inferior wall, apex hypokinesia July 2017 Echocardiography: revealed mild to moderate LV systolic dysfunction, mild MR and TR and moderate pulmonary HTN, repeat echocardiography dated 03/12/2018 revealed mild to moderate global hypokinesia with mild MR Medications: Current Medications Albuterol/Ipratropium (Duoneb -) 1 amp NEB Q8H PRN PRN Reason: SHORTNESS OF BREATH Apixaban (Eliquis -) 5 mg PO BID [facility] Last Admin: 03/16/18 23:40 Dose: 5 mg Carvedilol (Coreg -) 12.5 mg PO BID [facility] Last Admin: 03/16/18 21:26 Dose: 12.5 mg Guaifenesin (Robitussin -) 10 ml PO Q4H PRN PRN Reason: COUGH Last Admin: 03/17/18 03:33 Dose: 10 ml Piperacillin Sod/Tazobactam (Sod 3.375 gm/ Dextrose) 50 mls @ 100 mls/hr IVPB Q8H-IV CHIP; Protocol Last Admin: 03/17/18 02:17 Dose: 100 mls/hr Vancomycin HCl 1,500 mg/ (Dextrose) 500 mls @ 166.667 mls/hr IVPB Q12H [facility]; Protocol Last Admin: 03/16/18 21:26 Dose: 166.667 mls/hr Spironolactone (Aldactone -) 25 mg PO DAILY [facility] Valsartan (Diovan -) 80 mg PO DAILY [facility] Review of Systems - Review of Systems Cardiovascular: As noted above Respiratory: reports: SOB, SOB on Exertion. denies: Hemoptysis, Orthopnea, PND Gastrointestinal: denies: Abdominal Pain, Constipation, Diarrhea, Melena, Nausea , Vomiting, Rectal Bleeding Genitourinary: denies: Dysuria, Hematuria Musculoskeletal: reports: Joint Pain/post recent right knee replacement Neurological: denies: Dizziness, Headache, Seizure Endocrine: denies: Excessive Sweating Vital Signs: Last Vital Signs Temp Pulse Resp BP Pulse Ox 98.9 F 90 20 132/88 99 03/17/18 06:00 03/17/18 06:00 03/17/18 06:00 03/17/18 06:00 03/16/18 21:00 Intake & Output 03/14/18 03/15/18 03/16/18 03/17/18 23:59 23:59 23:59 23:59 Intake Total 1500 150 Output Total 1700 1200 Balance -200 -1050 Weight 220 lb Neck: Supple Negative JVD Respiratory: Diminished Bilaterally with Scattered Rhonchi Cardiovascular: S1 S2 Regular Rate and Rhythm Gastrointestinal: Soft Benign Normal Bowel Sounds Ext: Trace Edema Bilaterally Right Knee Incision Site Noted Labs: Troponin, BNP 03/16/18 09:04 Troponin I 0.10 H CBC, BMP 03/17/18 05:30 Hepatic Panel Total Bilirubin 0.6 mg/dL (0.2-1.0) 03/16/18 04:55 AST 18 U/L (15-37) D 03/16/18 04:55 ALT 36 U/L (12-78) 03/16/18 04:55 Alkaline Phosphatase 116 U/L (45-117) 03/16/18 04:55 Albumin 3.1 g/dl (3.4-5.0) L 03/16/18 04:55 Assessment/Plan ASSESSMENT: 1. Chest pain syndrome, and dyspnea referable to paroxysmal atrial fibrillation [id number] score of 2 with spontaneous conversion to sinus rhythm, poor compliance with therapy administration (doubt that patient will be complaint fci) 2. Systolic/diastolic LV dysfunction with chronic class I-II NYHA classification LV failure, clinically compensated/euvolemic 3. CAD abnormal Dobutamine MPI study angina pectoris, with evidence demand ischemic injury, clinically stable 4. Hypertension 5. COPD 6. Chronic kidney disease 7. History of degenerative joint disease post recent right knee replacement surgery persistent discomfort and swelling 8. History of depression and anxiety disorder 9. History of substance abuse, including tobacco abuse PLAN: 1. Continue Carvedilol 2. Continue Diovan 3. Continue Aldactone 4. Continue Eliquis 5. Patient can be transferred to floor care from the cardiovascular point of view no further cardiovascular intervention is indicated (elevated Troponin I noted, no clinical syndrome), patient was strongly counselled compliance with therapy administration 6. Patient should followup with his orthopedic surgeon for further evaluation of right knee incision site/discomfort Darek Mesa MD
[2018-03-17] MEDS ORDERED: ALBUTEROL SO4 2.5/IPRATROPIUM 0.5 INH SOL 3 ML VIAL.NEB. NEB PRN (07:54)
[2018-03-17 08:14] LABS: ALBUMIN 2.5 g/dl (3.4-5.0); ALK PHOS 83 U/L (45-117); ANION GAP 6 (8-16); BILIRUBIN,TOTAL 0.7 mg/dL (0.2-1.0); BLOOD UREA NITROGEN 27 mg/dL (7-18); CALCIUM 8.4 mg/dL (8.5-10.1); CHLORIDE 105 mmol/L (98-107); CO2 27 mmol/L (21-32); CREATININE 1.3 mg/dL (0.7-1.3); GLUCOSE,RANDOM 114 mg/dL (74-106); MAGNESIUM 2.2 mg/dL (1.8-2.4); PHOSPHOROUS 4.3 mg/dL (2.5-4.9); POTASSIUM 4.8 mmol/L (3.5-5.1); SGOT/AST 14 U/L (15-37); SGPT/ALT 27 U/L (12-78); SODIUM 138 mmol/L (136-145); TOT PROT 5.9 g/dl (6.4-8.2)
[2018-03-17] MEDS ORDERED: PT OWN MED DRAWER 7, Y5N ONE (08:18)
--- NOTE | 2018-03-17 08:54 | EKG ---
Test Reason : Blood Pressure : / mmHG Vent. Rate : 152 BPM Atrial Rate : 150 BPM P-R Int : 000 ms QRS Dur : 080 ms QT Int : 246 ms P-R-T Axes : 000 054 254 degrees QTc Int : 391 ms POOR DATA QUALITY, INTERPRETATION MAY BE ADVERSELY AFFECTED ATRIAL FIBRILLATION WITH RAPID VENTRICULAR RESPONSE ABNORMAL ECG WHEN COMPARED WITH ECG OF 16-MAR-2018 04:30, ST NO LONGER DEPRESSED IN LATERAL LEADS Confirmed by JAIME GERARDO, DANIEL ([id number]) on 03/17/2018 8:54:32 AM Referred By: LATASHA CALLOWAY Confirmed By:DANIEL SANDOVAL MD
[2018-03-17] MEDS ORDERED: VANCOMYCIN 1,500 MG in DEXTROSE 5%-WATER - 500 ML IVPB SCH ×2 (10:00→11:00)
[2018-03-17] MEDS ORDERED: APIXABAN 5 MG TABLET PO SCH (10:00)
[2018-03-17] MEDS ORDERED: CARVEDILOL 12.5 MG TABLET (FP) PO SCH (10:00)
[2018-03-17] MEDS ORDERED: SPIRONOLACTONE 25 MG TABLET (FP) PO SCH ×2 (10:00)
[2018-03-17] MEDS ORDERED: PIPERACILLIN/TAZOB 3.375 GM 3.375 GM in DEXTROSE 5%-WATER - 50 ML IVPB SCH (10:00)
[2018-03-17] MEDS ORDERED: VALSARTAN 80 MG TABLET (UD) PO SCH ×2 (10:00)
--- NOTE | 2018-03-17 10:02 | CONSULT ---
Consult - text type - Consultation Consultation Note: FULL CONSULT DICTATED IMP: S/P R TKR. NO EVIDENCE OF INFECTION. PLAN: PT, WBAT, NO NEED FOR ABX. F/U WITH HIS SURGEON UPON DC
--- NOTE | 2018-03-17 10:04 | CONS ---
DATE OF CONSULTATION: 03/17/2018 CONSULTATION REQUESTED BY: Hospitalist CHIEF COMPLAINT: Dyspnea, chest discomfort, evaluation of cardiac arrhythmia. The patient is known to our service from a recent hospitalization. A 57-year-old obese male with known history of coronary artery disease, abnormal myocardial perfusion imaging study, angina pectoris, systolic/diastolic left ventricular dysfunction with chronic Class 1 to 2 [place] Heart Association Classification left ventricular failure, paroxysmal atrial fibrillation, on anticoagulation therapy, hypertensive cardiovascular disease, hypercholesterolemia, chronic obstructive pulmonary disease, chronic kidney disease, degenerative joint disease, post recent total right knee replacement surgery, polysubstance abuse, who presented to [facility] with sudden onset of chest heaviness and dyspnea. Upon evaluation at the emergency room at [facility], was noted to have evidence of atrial fibrillation with rapid ventricular response. The patient, in addition, reported cough productive of clear sputum. The patient reported right knee discomfort and swelling at the site of recent total right knee replacement. In the emergency room, the patient was noted to have atrial fibrillation with periods of rapid ventricular response, requiring IV Cardizem and IV Lopressor therapy administration and, subsequently, the patient developed hypotension, requiring normal saline infusion with resolution. Eventually, there was spontaneous conversion to sinus rhythm. The patient admitted poor compliance with therapy administration for management of the above-noted comorbidities. Currently, the patient is complaining of right knee discomfort; in addition, complaining of cough productive of clear sputum. Denies any chest discomfort. The patient denied any orthopnea or paroxysmal nocturnal dyspnea. The patient denied any dizziness, lightheadedness, or syncope. As noted above, complaining of right knee discomfort with swelling. PAST MEDICAL HISTORY: Coronary artery disease, abnormal myocardial perfusion imaging study, angina pectoris, systolic/diastolic left ventricular dysfunction with chronic Class 1 to 2 [place] Heart Association Classification left ventricular failure, paroxysmal atrial fibrillation, CHADS2-VASc Score of 1 to 2, hypertensive cardiovascular disease, chronic obstructive pulmonary disease, chronic kidney disease, degenerative joint disease, post recent right knee replacement surgery, substance abuse. SOCIAL HISTORY: Smoker and substance abuse. FAMILY HISTORY: Positive for coronary artery disease. ALLERGIES: Intolerant to MORPHINE. MEDICAL THERAPY: Currently includes DuoNeb nebulizer; Eliquis 5 mg twice a day; Coreg 12.5 mg twice a day; Robitussin 10 mL every 4 hours as needed; piperacillin; vancomycin; Aldactone 25 mg once a day; Diovan 80 mg once daily. REVIEW OF SYSTEMS: Head/Neck: He denies headache, photophobia, blurring of vision. Respiratory: Cough productive of clear sputum. Cardiovascular: As noted above. Gastrointestinal: He denies nausea, vomiting, diarrhea, abdominal discomfort. Genitourinary: No symptoms reported. Musculoskeletal: Right knee discomfort and swelling. PHYSICAL EXAMINATION: Vital Signs: Blood pressure is 132/88 mmHg, pulse rate is 90 beats/min. Head/Neck: Pupils equal and reactive to light and accommodation. Extraocular muscles are intact. Anicteric sclerae. Negative JVD. No bruit appreciated. Chest: Bilateral scattered rhonchi. Cardiovascular: S1, S2 regular. No murmurs appreciated. Abdomen: Soft, benign, normoactive bowel sounds. Extremities: Trace edema bilaterally. Right knee incision noted; redness and minimal drainage. EKG: Atrial fibrillation with rapid ventricular response and nonspecific ST-segment abnormality. Troponin-I 0.10. CBC revealed a white cell count of 8.5, hemoglobin 12.2, platelets 499. Basic metabolic profile revealed sodium 133, potassium 5.0, BUN of 40, creatinine 1.4, estimated GFR 52.24, glucose 197. Chest x-ray report was noted. ASSESSMENT: 1. Chest pain syndrome and dyspnea, referable to paroxysmal atrial fibrillation; CHADS2-VASc Score of 2 with spontaneous conversion to sinus rhythm. Patient has poor compliance with therapy administration and doubt that patient will be compliant with long-term therapy administration. 2. Systolic/diastolic left ventricular dysfunction with chronic Class 1 to 2 [place] Heart Association Classification left ventricular failure, clinically compensated/euvolemic. 3. Coronary artery disease, abnormal dobutamine myocardial perfusion imaging study, angina pectoris with evidence of demand ischemia related to the above-noted presentation; clinically stable. 4. Hypertensive cardiovascular disease. 5. Chronic obstructive pulmonary disease. 6. Chronic kidney disease. 7. History of degenerative joint disease, post recent right knee replacement surgery, persistent discomfort, and edema/swelling. 8. History of depression/anxiety disorder. 9. History of substance abuse, including tobacco abuse. RECOMMENDATIONS: 1. Continuation of carvedilol. 2. Continuation of Diovan. 3. Continuation of Aldactone. 4. Continuation of Eliquis. 5. Patient can be transferred to floor care from the cardiovascular point of view. No further cardiovascular intervention is indicated. Elevated troponin-I is noted; trending down. No clinical syndrome. Patient was strongly counseled compliance with therapy administration. 6. Patient should follow up with his orthopedic surgeon for further evaluation of the right knee incision site/discomfort. Thank you for the kind referral. TIRSO OLSON M.D. [id number]
--- NOTE | 2018-03-17 10:46 | PN ---
Progress Note (short form) - Note Progress Note: ID Consult dictated Observe off antibiotics Outpatient follow up [facility] ortho
[2018-03-17 10:59] VITALS: BP 133/60; PULSE 82
--- NOTE | 2018-03-17 11:18 | CONS ---
DATE OF CONSULTATION: 03/17/2018 The patient is a 57-year-old male who we had just seen in the hospital a week ago. His history was that he had a right total knee replacement performed at [facility]. He was admitted a week ago, was at home, and was just now readmitted to the hospital due to new-onset atrial fibrillation. The patient was medically converted to sinus rhythm. The patient was complaining of some pain in his right knee and requested orthopedic evaluation. PHYSICAL EXAMINATION: His incision is well-healed with no drainage anywhere, no erythema. Mild effusion. Range of motion is 5 degrees to 85 degrees. Calf is soft, nontender. Neurovascularly intact. Good motion hip, ankle, and toes. X-RAYS: A CT, which shows a slight effusion, but otherwise, good alignment. LABORATORIES PERFORMED UPON ADMISSION: White count of 14, sedimentation rate of 40. IMPRESSION: It my evaluation this is a normal postoperative total knee replacement. No evidence of any infection at this period of time. I do not think patient needs any antibiotics, although patient was placed on broad-spectrum antibiotics by the Medical Team. At this point, I believe the patient should be taken off all antibiotics and he should be on physical therapy, range of motion activity, especially for extension, and can be discharged and follow up with his orthopedic surgeon at a later date. ABHILASH BULLOCK M.D. [id number]
--- NOTE | 2018-03-17 11:46 | DS ---
Physical Exam: LABS Laboratory Results - last 24 hr 03/17/18 03/17/18 03/17/18 05:30 05:30 05:30 WBC 8.5 RBC 3.86 L Hgb 12.2 Hct 35.4 MCV 91.6 MCH 31.5 MCHC 34.4 RDW 13.6 Plt Count 499 H MPV 7.9 Absolute Neuts (auto) 5.8 Neutrophils % 68.8 Lymphocytes % 19.8 D Monocytes % 8.6 Eosinophils % 2.7 D Basophils % 0.1 Nucleated RBC % 0 ESR Sodium 138 Potassium 4.8 Chloride 105 Carbon Dioxide 27 Anion Gap 6 L BUN 27 H Creatinine 1.3 Creat Clearance w eGFR 56.90 Random Glucose 114 H D Calcium 8.4 L Phosphorus 4.3 Magnesium 2.2 Total Bilirubin 0.7 AST 14 L D ALT 27 D Alkaline Phosphatase 83 D C-Reactive Protein Total Protein 5.9 L Albumin 2.5 L Random Vancomycin 22.63 03/17/18 03/17/18 05:30 05:30 WBC RBC Hgb Hct MCV MCH MCHC RDW Plt Count MPV Absolute Neuts (auto) Neutrophils % Lymphocytes % Monocytes % Eosinophils % Basophils % Nucleated RBC % ESR 44 H Sodium Potassium Chloride Carbon Dioxide Anion Gap BUN Creatinine Creat Clearance w eGFR Random Glucose Calcium Phosphorus Magnesium Total Bilirubin AST ALT Alkaline Phosphatase C-Reactive Protein 14.2 H Total Protein Albumin Random Vancomycin HOSPITAL COURSE: Date of Admission:03/16/18 Date of Discharge: 03/17/18 Pre hospital course 57 year-old male with a PMH significant for HTN, biventricular heart failure, paroxysmal afib, CAD, CKD, DJD s/p recent right knee replacement at [facility], depression, anxiety, and substance abuse. Patient was hospitalized at [facility] from 03/11-03/14/18 for afib and SOB. He presented to the [place] ED early this morning with a complaint of SOB while lying in bed. Initial ECG revealed afib with RVR to 170bpm. Treatment was started and patient decided to leave. He signed out AMA. Five minutes later he returned to the ED stating he wanted be treated. Utox positive for opioids, amphetamines, ectasy, and marijuana. Hospital course The following is a summary of his clinical course by problem list. Afib with RVR --cardizem drip started in ED twice, both times BP dropped and drip stopped --500cc bolus of NS given to support BP --converted to SR in 90s while in ED and remained in SR for the rest of the hospital course --continued apixaban --continued carvedilol --transferred to ICU where he remained overnight Polysubstance abuse --urine tox positive for amphetamines, marijuana, ecstasy, opiates --ISTOP shows heavy use of oxycodone and adderall --extremely agitated in ED, verbally abuse to staff; gave ativan 2mg x 1 Systolic/diastolic LV dysfunction with chronic class I-II NYHA classification LV failure --low volume state on arrival, gave ~1L fluids --continued spironolactone Coronary artery disease --continued carvedilol Hypertension --continued carvedilol, valsartan, spironolactone Acute on chronic renal insufficiency --Cr 1.7 on admission, 1.3 at time of AMA --fluids given in ED Degenerative joint disease s/p right knee replacement Inflammation v. infection right knee --surgical sutures still in situ, patient has not returned to surgeon at [facility] --marked difference in right knee since discharge two days ago: swelling, warmth, drainage --CT right knee: s/p right knee replacement, satisfactory alignment, moderate amount of suprapatellar joint effusion --afebrile, + leukocytosis --started empiric Vanc and Zosyn COPD --duonebs PRN Departure Patient was transferred from ICU to [address] [place] [address]. Allowed nurse to take his vitals: BP 122/74 p87 T 97.8 RR 18 97% on 2L. Demanded to have TV turned on. As nurse was explaining how TV works he started screaming, cursing, using foul, abusive, and threatening language toward the nurse. He took the telephone and started banging the door frame assembler machine, threatening to harm her. A Condition 10 was called. Patient continued his abusive and threatening behavior, and abhorrently foul language. He demanded to leave. I advised the patient if he left he could suffer injury or . I told him he possibly has an infection in his right knee. He insisted on leaving. Peripheral IV was removed. Patient was escorted off the floor by security. Minutes to complete discharge: 35 Discharge Summary Reason For Visit: SOB/ANXIETY/ATRIAL FIBRILLATION SYSTOLIC HEART ZAKIA Current Active Problems Paroxysmal atrial fibrillation (Acute) Shortness of breath (Acute) Systolic dysfunction with heart failure (Acute) Condition: Guarded - Instructions Disposition: AGAINST MEDICAL ADVICE - Home Medications Comprehensive Discharge Medication List: Ambulatory Orders Apixaban [Eliquis -] 5 mg PO BID #60 tablet 03/14/18 Carvedilol [Coreg -] 12.5 mg PO BID #60 tablet 03/14/18 Prednisone [Deltasone] See Taper PO ASDIR #21 tablet 03/14/18 Spironolactone [Aldactone -] 25 mg PO DAILY #30 tablet 03/14/18 Valsartan [Diovan] 80 mg PO DAILY #30 tablet 03/14/18 This patient is new to me today: No Emergency Visit: Yes ED Registration Date: 03/16/18 Care time: The patient presented to the Emergency Department on the above date and was hospitalized for further evaluation of their emergent condition. Critical Care patient: No - Discharge Referral Referred to [facility] Med P.C.: No
--- NOTE | 2018-03-17 12:13 | CONS ---
DATE OF CONSULTATION: DATE OF DICTATION: 03/17/2018 The patient is a 57-year-old male status post a right total knee replacement 3 weeks ago at [facility], evaluated for possible infected right total knee replacement. The patient was seen at [facility] Emergency Room with worsening shortness of breath. He was diagnosed with atrial fibrillation with rapid ventricular response. He apparently signed out against medical advice and then returned 5 minutes later. He was transferred to the intensive care unit for further evaluation. In the ICU, his course has been significant for improvement in his rate. He was noted to have a right knee effusion and possible erythema at the surgical site. According to the nurse's notes, he has been noncompliant with care, refusing laboratories, pulling off monitors, and not adhering to his prescribed diet. He is presently in normal sinus rhythm. He complains of cough. The patient reports he has been ambulating at home. No reports of worsening erythema of the wound or wound drainage. PAST MEDICAL HISTORY: Positive for paroxysmal atrial fibrillation, congestive heart failure, coronary artery disease, COPD, hypertension, chronic kidney disease, DJD. ALLERGIES: MORPHINE. MEDICATIONS: Eliquis; Coreg; prednisone; Aldactone; Diovan. SOCIAL HISTORY: Positive for polysubstance abuse. His urine toxicology screen was positive for opiates, amphetamines, ecstasy, and marijuana. SYSTEMS REVIEW: Neurologic: No loss of consciousness, seizure activity, focal weakness. Cardiac: As per HPI. Respiratory: Positive for cough. Gastrointestinal: Negative vomiting or diarrhea. Genitourinary: Negative for urinary tract infection. LABORATORY DATA: White count on admission 14, presently 8.5; hematocrit 35.4; platelet count 499. BUN 27, creatinine 1.3. Urinalysis zero to 2 white cells. ESR 44. C-reactive protein 14.2. Chest x-ray: No focal infiltrate. CT scan of the chest from March 12, 2018: Negative for acute infiltrate. PHYSICAL EXAMINATION: General: He is awake and alert, in no acute distress. Vital Signs: Temperature 98.9, blood pressure 146/74, pulse 90 and regular, respirations 20/min. HEENT: Sclerae anicteric. Cardiac: Heart Sounds: S1, S2. Regular. No murmur. Lungs: Few rhonchi. No wheezing or rales. Abdomen: Soft. No tenderness elicited. Extremities: Examination of the right knee, there is a moderate right knee effusion. There is a healed surgical scar. No evidence of erythema or drainage. Negative Jamie sign. IMPRESSION: 1. Atrial fibrillation with rapid ventricular response. 2. Postoperative right total knee replacement. 3. Polysubstance abuse with positive toxicology screen. No evidence of surgical wound infection or infected knee prosthesis. Would observe off antibiotic therapy, outpatient followup at [facility] with his orthopedist. Thank you for the kind referral. EVELIN LOZA M.D. [id number]
--- NOTE | 2018-03-17 12:19 | PN ---
Teaching Attending Note Name of Resident: Delio Molina ATTENDING PHYSICIAN STATEMENT I saw and evaluated the patient. I reviewed the resident's note and discussed the case with the resident. I agree with the resident's findings and plan as documented. SUBJECTIVE: Pt seen and examined in the ICU. Back in sinus rhythm. Still some shortness of breath and cough. OBJECTIVE: Vital Signs Period Temp Pulse Resp BP Sys/Bello Pulse Ox Last 24 Hr 98.0 F-98.9 F 82-151 18-24 70-146/46-94 96-99 Intake & Output 03/14/18 03/15/18 03/16/18 03/17/18 23:59 23:59 23:59 23:59 Intake Total 1500 150 Output Total 1700 1200 Balance -200 -1050 Weight 99.79 kg Gen: mildly tachypneic at rest Heart: RRR Lung: scattered rhonchi Abd: soft, nontender Ext: no edema CBC, BMP 03/17/18 05:30 03/17/18 05:30 ASSESSMENT AND PLAN: Paroxysmal Atrial Fibrillation with RVR now in sinus LV Systolic/Diastolic Dysfunction Acute COPD Exacerbation CAD HTN CKD Substance Abuse - rate/rhythm control - continue anticoagulation - resume prednisone taper - inhaled bronchodilators - smoking, drug cessation - can monitor on floor
--- NOTE | 2018-03-17 21:47 | PN ---
Physical Exam: SUBJECTIVE: Pt returned to sinus rhythm with current medication regiment. Currently rate controlled. Pt reports "feeling lousy," however denies any chest pain, palpitations, shortness of breath, abdominal pain, headaches, lightheadedness. OBJECTIVE: Vital Signs Period Temp Pulse Resp BP Sys/Bello Pulse Ox Last 24 Hr 98.0 F-98.9 F 82-93 20-24 86-146/46-88 96 GENERAL: The patient is awake, alert, and fully oriented, in no acute distress. HEENT: EOMI, CINDY sclera anicteric, MMM NECK: No JVD LUNGS: Diminished at bases bilaterally; slightly tachypneic at rest, no wheezes , no crackles, no accessory muscle use. HEART: RRR, S1, S2 without murmur ABDOMEN: Soft, NT/ND, normoactive bowel sounds, no guarding EXTREMITIES: 2+ DP pulses, warm, no edema. PSYCH: Normal mood, normal affect. SKIN: Warm, dry, no rashes or lesions noted Laboratory Results - last 24 hr 03/17/18 03/17/18 03/17/18 05:30 05:30 05:30 WBC 8.5 RBC 3.86 L Hgb 12.2 Hct 35.4 MCV 91.6 MCH 31.5 MCHC 34.4 RDW 13.6 Plt Count 499 H MPV 7.9 Absolute Neuts (auto) 5.8 Neutrophils % 68.8 Lymphocytes % 19.8 D Monocytes % 8.6 Eosinophils % 2.7 D Basophils % 0.1 Nucleated RBC % 0 ESR Sodium 138 Potassium 4.8 Chloride 105 Carbon Dioxide 27 Anion Gap 6 L BUN 27 H Creatinine 1.3 Creat Clearance w eGFR 56.90 Random Glucose 114 H D Calcium 8.4 L Phosphorus 4.3 Magnesium 2.2 Total Bilirubin 0.7 AST 14 L D ALT 27 D Alkaline Phosphatase 83 D C-Reactive Protein Total Protein 5.9 L Albumin 2.5 L Random Vancomycin 22.63 03/17/18 03/17/18 05:30 05:30 WBC RBC Hgb Hct MCV MCH MCHC RDW Plt Count MPV Absolute Neuts (auto) Neutrophils % Lymphocytes % Monocytes % Eosinophils % Basophils % Nucleated RBC % ESR 44 H Sodium Potassium Chloride Carbon Dioxide Anion Gap BUN Creatinine Creat Clearance w eGFR Random Glucose Calcium Phosphorus Magnesium Total Bilirubin AST ALT Alkaline Phosphatase C-Reactive Protein 14.2 H Total Protein Albumin Random Vancomycin ASSESSMENT/PLAN: PAF with RVR (resolved) Systolic and diastolic heart failur COPD CAD HTN Polysubstance abuse Neuro: Neurologically at baseline Respiratory: Continue prednisone taper as pt was previously on before discharge --Prednisone 40mg qDaily Cardiovascular: Currently in sinus and rate controlled Continue Aldactone 25mg qDaily Continue Coreg 12.5mg BID Continue Diovan 80mg qDaily Continue Eliquis 5mg BID PO Substance abuse counselling and cessation encouraged FEN: Fluids: None currently tolerating PO Electrolye abnormalities: None Nutrition: Advance as tolerated PPX: dvt - eliquis 5mg PO BID already Dispo: Transfer to telemetry Case discussed with Dr. Teja Molina, DO - IM PGY-2 Visit type - Emergency Visit Emergency Visit: No - New Patient This patient is new to me today: No - Critical Care Critical Care patient: No
[2018-03-18] MEDS ORDERED: PIPERACILLIN/TAZOB 3.375 GM 3.375 GM in DEXTROSE 5%-WATER - 50 ML IVPB SCH (18:00)
[2018-03-18] MEDS ORDERED: VANCOMYCIN 1,500 MG in DEXTROSE 5%-WATER - 500 ML IVPB SCH (22:00)
== END 2018-03-17 12:00 | disposition left against medical advice (07) | DRG 309 ==
LOC: FER 03:53 → SUATTDRO 03:53 → JICU 16:30 → J5S 03-17 11:20
PROVIDERS: ADMIT Internal Medicine; ATTEND Nurse Practitioner Acute Care
DX: I48.0 Paroxysmal atrial fibrillation (principal); J44.0 Chronic obstructive pulmonary disease with (acute) lower respiratory infection; N17.9 Acute kidney failure, unspecified; I13.0 Hypertensive heart and chronic kidney disease with heart failure and stage 1 through stage 4 chronic kidney disease, or unspecified chronic kidney disease; I50.42 Chronic combined systolic (congestive) and diastolic (congestive) heart failure; I25.10 Atherosclerotic heart disease of native coronary artery without angina pectoris; F41.8 Other specified anxiety disorders; F17.210 Nicotine dependence, cigarettes, uncomplicated; M17.11 Unilateral primary osteoarthritis, right knee; M25.461 Effusion, right knee; F12.10 Cannabis abuse, uncomplicated; F11.10 Opioid abuse, uncomplicated; F19.10 Other psychoactive substance abuse, uncomplicated; J44.9 Chronic obstructive pulmonary disease, unspecified; I27.20 Pulmonary hypertension, unspecified; N18.9 Chronic kidney disease, unspecified; Z96.651 Presence of right artificial knee joint; Z91.14 Patient's other noncompliance with medication regimen
CPT/HCPCS: 36415; 71045-TC-FY; 73700-TC-RT; 80048; 80053; 80307; 81003; 81015; 82550; 83735; 84100; 84484; 85025; 85610; 85651; 86140; 87040; 87086; 87186; 93005; 99285-25; G0480; J7030

== ENCOUNTER 2020-04-26 01:23 | Inpatient (IN) | payer BC, OTHER ==
[2020-04-26 01:55] VITALS: BMI 30.4
--- NOTE | 2020-04-26 02:04 | PDOC ---
Attending Attestation - Resident Resident Name: Torres Thornton - ED Attending Attestation I have performed the following: I have examined & evaluated the patient, The case was reviewed & discussed with the resident, I agree w/resident's findings & plan - HPI HPI: 04/26/20 04:08 Pt comes with a foot infection that has been ongoing for 3 days. Pt states that he scraped his foot coming out of the pool. He hit a sharp in the garden. Now with a cellulitis on the dorsal aspect on his left foot. - Physicial Exam PE: 04/26/20 04:09 Left foot, pus coming out of the center of the dorsum of the foot. surrounding redness and cellulitis - Medical Decision Making 04/26/20 04:08 Pt has a WBC count that is 12+ with a left shift 04/26/20 04:11 Pt is not complaint with any of his meds. a result his BP is high and his pulse is tachy. Pt has no other complaints. We will treat him with clinda and vanco and losartan and coreg. 04/26/20 06:11 Pt received 10U reg insulin 2 hrs back. FS is still in the 500s. He has no anion gap; Pt will get another push of 10U 04/26/20 06:47 Admit to hospitalist Pt will be signed out to day ER docs Heart Score/ECG Review - ECG Intrepretation Rhythm: Regular Rhythm - [place]: Normal - P and AL Delta Wave(s) Present: No WPW: No - ST and T Early Repolarization: No Non Specific ST-T Wave changes: No - ECG Impressions Normal ECG: No Non-specific ST Elevation: No Ischemic Changes: No Bradycardia: No Tachycardia: Sinus Torsades orestes Pointes: No WPW: No Discharge - Discharge Information Problems reviewed: Yes Clinical Impression/Diagnosis: Cellulitis and abscess of foot Left ankle pain Qualifiers: Chronicity: acute Qualified Code(s): M25.572 - Pain in left ankle and joints of left foot Condition: Improved - Follow up/Referral - Patient Discharge Instructions - Post Discharge Activity
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
[2020-04-26] MEDS ORDERED: ACETAMINOPHEN 325 MG TABLET (FP) PO ONE (02:26)
[2020-04-26] MEDS ORDERED: ACETAMINOPHEN 325 MG TABLET (FP) ONE (02:30)
[2020-04-26] MEDS ORDERED: CLINDAMYCIN 600MG PREMIX IVPB 600 MG/50 ML BAG IVPB ONE ×2 (02:34→02:49)
[2020-04-26] MEDS ORDERED: VALSARTAN 40 MG TABLET (FP) PO ONE (02:35)
[2020-04-26] MEDS ORDERED: CARVEDILOL 25 MG TABLET (FP) PO ONE (02:56)
[2020-04-26] MEDS ORDERED: VALSARTAN 80 MG TABLET (UD) PO ONE (03:00)
[2020-04-26] MEDS ORDERED: VANCOMYCIN 1,000 MG in DEXTROSE 5%-WATER - 250 ML IVPB ONE (03:14)
[2020-04-26] MEDS ORDERED: VALSARTAN 80 MG TABLET (UD) ONE (03:23)
[2020-04-26] MEDS ORDERED: CARVEDILOL 12.5 MG TABLET (FP) ONE (03:23)
[2020-04-26] MEDS ORDERED: VANCOMYCIN 1 GRAM (PRE-DOCKED) 1,000 MG/250 ML BAG IVPB ONE (03:24)
[2020-04-26 03:34] LABS: BASO % 0.5 % (0-2.0); EOS % 0.3 % (0-4.5); HEMATOCRIT 46.4 % (35.4-49); HEMOGLOBIN 15.6 GM/dL (11.7-16.9); LYMPH % 10.8 % (8-40); MCH 30.9 pg (25.7-33.7); MCHC 33.5 g/dl (32.0-35.9); MEAN CELL VOLUME 92.2 fl (80-96); MEAN PLT VOLUME 9.7 fl (7.5-11.1); MONO % 5.5 % (3.8-10.2); NEUT % 82.9 % (42.8-82.8); PLATELET COUNT 236 K/MM3 (134-434); RBC 5.03 M/mm3 (4.00-5.60); RDW 13.5 % (11.9-15.9); WHITE BLOOD COUNT 12.2 K/mm3 (4.0-10.0)
[2020-04-26 03:46] LABS: INR 0.92 (0.83-1.09); PROTHROMBIN TIME (PATIENT) 10.8 SEC (9.7-13.0)
[2020-04-26 03:53] LABS: ALBUMIN 3.3 g/dl (3.4-5.0); BILIRUBIN,TOTAL 0.9 mg/dL (0.2-1); CREATININE 1.5 mg/dL (0.55-1.3)
[2020-04-26] MEDS ORDERED: SODIUM CHLORIDE 0.9% 500 ML INFUS.BAG IV ONE (04:10)
[2020-04-26 04:24] LABS: POTASSIUM 6.4 mmol/L (3.5-5.1)
[2020-04-26 04:30] LABS: ERYTHROCYTE SEDIMENTATION RATE 41 mm/hr (0-20)
[2020-04-26] MEDS ORDERED: INSULIN REGULAR HUMAN 100 UNITS/ML *VIAL IVPUSH ONE ×2 (04:35→06:10)
[2020-04-26 05:49] LABS: BLOOD UREA NITROGEN 22.7 mg/dL (7-18); CREATININE 1.4 mg/dL (0.55-1.3); POTASSIUM 4.8 mmol/L (3.5-5.1)
[2020-04-26 06:02] VITALS: BP 122/76; PULSE 96; TEMP 98.4
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
--- NOTE | 2020-04-26 10:31 | EKG ---
Test Reason : Blood Pressure : / mmHG Vent. Rate : 121 BPM Atrial Rate : 121 BPM P-R Int : 140 ms QRS Dur : 086 ms QT Int : 300 ms P-R-T Axes : 064 023 091 degrees QTc Int : 426 ms SINUS TACHYCARDIA NONSPECIFIC T WAVE ABNORMALITY ABNORMAL ECG WHEN COMPARED WITH ECG OF 16-MAR-2018 09:36, SINUS RHYTHM HAS REPLACED ATRIAL FIBRILLATION T WAVE VARIATION Confirmed by DEJA BENITO MD ([id number]) on 04/26/2020 10:30:43 AM Referred By: Confirmed By:DEJA BENITO MD
[2020-04-26] MEDS ORDERED: ACETAMINOPHEN 1000 MG/100 ML VIAL (NON FORMULARY) IVPB PRN (10:56)
[2020-04-26] MEDS ORDERED: INSULIN SLIDING SCALE (NOVOLOG) 1 VIAL SQ SCH (11:00)
[2020-04-26] MEDS ORDERED: VANCOMYCIN 1,250 MG in DEXTROSE 5%-WATER - 250 ML IVPB SCH ×2 (11:00→16:00)
[2020-04-26] MEDS ORDERED: PIPERACILLIN/TAZOB 3.375 GM 3.375 GM in DEXTROSE 5%-WATER - 50 ML IVPB SCH ×2 (11:15→18:00)
--- NOTE | 2020-04-26 11:20 | PDOC ---
*Physical Exam - Vital Signs Last Vital Signs Temp Pulse Resp BP Pulse Ox 98.4 F 96 H 22 H 122/76 96 04/26/20 06:02 04/26/20 06:02 04/26/20 06:02 04/26/20 06:02 04/26/20 06:02 ED Treatment Course - LABORATORY CBC & Chemistry Diagram: 04/26/20 03:05 04/26/20 04:37 - ADDITIONAL ORDERS Additional order review: Laboratory Results 04/26/20 04/26/20 04/26/20 04:37 04:35 03:05 PT with INR 10.80 INR 0.92 PTT (Actin FS) 30.0 Sodium 128 L Potassium 4.8 Chloride 96 L Carbon Dioxide 23 Anion Gap 9 BUN 22.7 H Creatinine 1.4 H Est GFR (CKD-EPI)AfAm 63.29 Est GFR (CKD-EPI)NonAf 54.60 POC Glucometer 561 Random Glucose 536 H* Calcium 9.0 Total Bilirubin AST ALT Alkaline Phosphatase Total Protein Albumin 04/26/20 03:05 PT with INR INR PTT (Actin FS) Sodium 126 L Potassium 6.4 H* Chloride 94 L Carbon Dioxide 26 Anion Gap 6 L BUN 22.0 H Creatinine 1.5 H Est GFR (CKD-EPI)AfAm 58.22 Est GFR (CKD-EPI)NonAf 50.23 POC Glucometer Random Glucose 568 H* Calcium 9.0 Total Bilirubin 0.9 AST 43 H ALT 31 Alkaline Phosphatase 176 H Total Protein 8.0 Albumin 3.3 L 04/26/20 04/26/20 04:35 03:05 RBC 5.03 MCV 92.2 MCHC 33.5 RDW 13.5 MPV 9.7 D Neutrophils % 82.9 H D Lymphocytes % 10.8 D Monocytes % 5.5 Eosinophils % 0.3 D Basophils % 0.5 D POC Glucometer 561 - Medications Given in the ED: ED Medications Discontinued Medications Generic Name Dose Route Start Last Admin Trade Name Freq PRN Reason Stop Dose Admin Acetaminophen 650 mg 04/26/20 02:26 04/26/20 02:34 Tylenol - PO 04/26/20 02:27 650 mg ONCE ONE Administration Carvedilol 25 mg 04/26/20 02:56 04/26/20 03:44 Coreg - PO 04/26/20 02:57 25 mg ONCE ONE Administration Clindamycin Phosphate 600 mg in 50 mls @ 100 mls/hr 04/26/20 02:34 04/26/20 03:17 Cleocin 600 Mg Premix Ivpb - IVPB 04/26/20 03:03 100 mls/hr ONCE ONE Administration Vancomycin HCl 1,000 mg/ 250 mls @ 250 mls/hr 04/26/20 03:14 04/26/20 03:44 Dextrose IVPB 04/26/20 04:13 250 mls/hr ONCE ONE Administration Protocol Insulin Human Regular 10 units 04/26/20 04:35 04/26/20 04:42 Novolin R Vial *For Ivpush Or Iv Drip Only* IVPUSH 04/26/20 04:36 10 units ONCE ONE Administration Insulin Human Regular 10 units 04/26/20 06:10 04/26/20 06:13 Novolin R Vial *For Ivpush Or Iv Drip Only* IVPUSH 04/26/20 06:11 10 units ONCE ONE Administration Sodium Chloride 500 ml 04/26/20 04:10 04/26/20 04:37 Normal Saline - IV 04/26/20 04:11 500 ml ONCE ONE Administration Valsartan 40 mg 04/26/20 02:35 04/26/20 03:51 Diovan - PO 04/26/20 02:36 Not Given ONCE ONE Valsartan 80 mg 04/26/20 03:00 04/26/20 03:44 Diovan - PO 04/26/20 03:01 80 mg ONCE ONE Administration Medical Decision Making - Medical Decision Making MDM Patient has PMH HTN, CAD, DM, here for left foot pain that appears to be cellulitis without abscess from scrape. Hypertensive and tachycardic, has not taken home BP meds today and in pain. Ordering CBC/CMP/ESR/CRP/ECG/CXR/BC/WC for eval cellulitis, as well as XR left foot/ankle for eval osteo and ankle fracture. - Pt with no new complaints - Awaiting xr read - Pt signed out to admitting team 04/26/20 07:30 Discharge - Discharge Information Problems reviewed: Yes Clinical Impression/Diagnosis: Cellulitis and abscess of foot Left ankle pain Qualifiers: Chronicity: acute Qualified Code(s): M25.572 - Pain in left ankle and joints of left foot Condition: Improved - Follow up/Referral - Patient Discharge Instructions - Post Discharge Activity
[2020-04-26] MEDS ORDERED: PIPERACILLIN/TAZOB 3.375 GM 3.375 GM/50 ML BAG IVPB ONE (12:37)
[2020-04-26] MEDS ORDERED: HEPARIN NA (PORCINE) 5,000 UNITS/ML 1ML VIAL SQ SCH (14:00)
[2020-04-26] MEDS ORDERED: FAMOTIDINE 20 MG TABLET PO SCH (22:00)
[2020-04-26] MEDS ORDERED: APIXABAN 5 MG TABLET PO SCH (22:00)
[2020-04-26] MEDS ORDERED: ATORVASTATIN CA 40 MG TABLET (FP) PO SCH (22:00)
[2020-04-26] MEDS ORDERED: CARVEDILOL 25 MG TABLET (FP) PO SCH (22:00)
[2020-04-27] MEDS ORDERED: amLODIPine BESYLATE 5 MG TABLET (FP) PO SCH (10:00)
[2020-04-27] MEDS ORDERED: LOSARTAN POTASSIUM 50 MG TABLET (FP) PO SCH (10:00)
== END 2020-04-26 15:20 | disposition left against medical advice (07) | DRG 603 ==
LOC: JER 01:23 → JERBED 05:00
DX: L03.116 Cellulitis of left lower limb (principal); I50.42 Chronic combined systolic (congestive) and diastolic (congestive) heart failure; E87.1 Hypo-osmolality and hyponatremia; L02.612 Cutaneous abscess of left foot; I25.10 Atherosclerotic heart disease of native coronary artery without angina pectoris; I11.0 Hypertensive heart disease with heart failure; I48.91 Unspecified atrial fibrillation; Z79.01 Long term (current) use of anticoagulants; Z87.891 Personal history of nicotine dependence; R74.0 Nonspecific elevation of levels of transaminase and lactic acid dehydrogenase [LDH]; E11.65 Type 2 diabetes mellitus with hyperglycemia; R00.0 Tachycardia, unspecified
CPT/HCPCS: 36415; 71045-TC-FY; 73610-TC-LT-FY; 73630-TC-LT; 80048; 80053; 82010; 82728; 82962; 85025; 85610; 85651; 85730; 86140; 87040; 87070; 87076; 87077; 87186; 87205; 93005; 93010; 99285-25; U0003

== ENCOUNTER 2020-04-27 13:20 | Inpatient (IN) | payer BC, OTHER ==
--- NOTE | 2020-04-27 13:52 | PDOC ---
History of Present Illness - General Chief Complaint: Pain Stated Complaint: FOOT PAIN Time Seen by Provider: 04/27/20 13:51 - History of Present Illness Initial Comments: 04/27/20 13:54 HTN, DM, Afib on Eliqius, CAD, and DJD c/o LLE pain. pt was admitted yesterday for cellulitis, but eloped. HPI Patient denies SANDOVAL, vision change, palpitations, cough, wheezing, orthopena, PND, leg swelling/pain, N/V, F,C, CP, SOB, urinary complaints, hematuria, BPR, abdominal pain, diarrhea, constipation, lightheadedness, weakness, sensory changes. PMHx: as noted above ROS: as noted SHx: Denies Etoh, IVDA, tobacco use Allergies: NKDA ROS: GENERAL/CONSTITUTIONAL: No fever or chills. No weakness. HEAD, EYES, EARS, NOSE AND THROAT: No change in vision. No ear pain or discharge. No sore throat. CARDIOVASCULAR: No chest pain or shortness of breath RESPIRATORY: No cough, wheezing, or hemoptysis. GASTROINTESTINAL: No nausea, vomiting, diarrhea or constipation. GENITOURINARY: No dysuria, frequency, or change in urination. MUSCULOSKELETAL: No joint or muscle swelling or pain. No neck or back pain. SKIN: No rash NEUROLOGIC: No headache, vertigo, loss of consciousness, or change in strength/sensation. ENDOCRINE: No increased thirst. No abnormal weight change HEMATOLOGIC/LYMPHATIC: No anemia, easy bleeding, or history of blood clots. ALLERGIC/IMMUNOLOGIC: No hives or skin allergy. PE: GENERAL: Awake, alert, and fully oriented, in no acute distress HEAD: No signs of trauma, normocephalic, atraumatic EYES: PERRLA, EOMI, sclera anicteric, conjunctiva clear ENT: Auricles normal inspection, hearing grossly normal, nares patent, oropharynx clear without exudates. Moist mucosa NECK: Normal ROM, supple, no lymphadenopathy, JVD, or masses LUNGS: No distress, speaks full sentences, clear to auscultation bilaterally HEART: Regular rate and rhythm, normal S1 and S2, no murmurs, rubs or gallops, peripheral pulses normal and equal bilaterally. ABDOMEN: Soft, nontender, normoactive bowel sounds. No guarding, no rebound. No masses EXTREMITIES : left foot erythema on dorsal surface of foot. wound with purulent/sanguinous drainage. NEUROLOGICAL: Cranial nerves II through XII grossly intact. Normal speech, normal gait, no focal sensorimotor deficits SKIN: Warm, Dry, normal turgor, no rashes or lesions noted MDM DDx including but not limited to: Workup: TX: tylenol dilaudid ordered as per Dr. Batista recommendations vanc and clinda Scores - HEART score - EKG: normal sinus rhythm, HR bpm, NE ms, QRS ms, QTc ms ED course meds: Re-assessment: Past History - Medical History Allergies/Adverse Reactions: Allergies Allergy/AdvReac Type Severity Reaction Status Date / Time morphine Allergy Severe Rash;ITCHIN Verified 03/16/18 09:27 G Home Medications: Ambulatory Orders Amlodipine Besylate [Norvasc -] 5 mg PO DAILY 04/26/20 Atorvastatin Calcium 40 mg PO HS 04/26/20 Carvedilol [Coreg -] 25 mg PO BID 04/26/20 Famotidine [Pepcid] 20 mg PO BID 04/26/20 Hydrochlorothiazide 12.5 mg PO DAILY 04/26/20 Losartan Potassium 100 mg PO DAILY 04/26/20 Metformin HCl [Glucophage] 500 mg PO BID 04/26/20 Cardiac Disorders: Yes COPD: No GI Disorders: Yes HTN: Yes Hypercholesterolemia: Yes Psychiatric Problems: Yes (DEPRESSION) - Surgical History Gastric Stapling: No - Psycho-Social/Smoking History Smoking History: Unknown if ever smoked Have you smoked in the past 12 months: Yes Number of Cigarettes Smoked Daily: 2 'Breaking Loose' booklet given: 03/11/18 - Substance Abuse Hx (Audit-C & DAST Scrn) How often the patient has a drink containing alcohol: Never Score: In Men: 4 or > Positive; In Women: 3 or > Positive: 0 Screen Result (Pos requires Nsg. Audit-10AR): Negative In the last yr the pt used illegal drug/Rx for NonMed reason: No Score: Yes response is considered Positive: 0 Screen Result (Positive result requires Nsg. DAST-10): Negative *Physical Exam - Vital Signs Last Vital Signs Temp Pulse Resp BP Pulse Ox 108 H 22 H 106/85 98 04/27/20 13:29 04/27/20 13:29 04/27/20 13:29 04/27/20 13:29 ED Treatment Course - LABORATORY CBC & Chemistry Diagram: 04/28/20 07:20 04/28/20 07:20 Discharge - Discharge Information Clinical Impression/Diagnosis: Cellulitis and abscess of foot - Follow up/Referral - Patient Discharge Instructions - Post Discharge Activity
[2020-04-27] MEDS ORDERED: ACETAMINOPHEN 1000 MG/100 ML VIAL (NON FORMULARY) IVPB ONE (14:12)
[2020-04-27] MEDS ORDERED: HYDROmorphone HCL CARPU-JECT 2 MG/1 ML DISP.SYRIN IVPUSH ONE (14:27)
[2020-04-27] MEDS ORDERED: HYDROmorphone HCl 2 MG/ML VIAL ONE (14:34)
[2020-04-27] MEDS ORDERED: VANCOMYCIN 1 GM in D5W (PRE-DOCKED) 1,000 MG/250 ML IVPB ONE (14:35)
[2020-04-27] MEDS ORDERED: CLINDAMYCIN 600MG PREMIX IVPB 600 MG/50 ML BAG IVPB ONE ×2 (14:35→15:37)
[2020-04-27 14:36] LABS: BASO % 0.5 % (0-2.0); HEMATOCRIT 45.8 % (35.4-49); HEMOGLOBIN 15.2 GM/dL (11.7-16.9); LYMPH % 20.1 % (8-40); MCHC 33.1 g/dl (32.0-35.9); MEAN CELL VOLUME 93.6 fl (80-96); MONO % 6.1 % (3.8-10.2); NEUT % 72.3 % (42.8-82.8); PLATELET COUNT 232 K/MM3 (134-434); RDW 13.7 % (11.9-15.9); WHITE BLOOD COUNT 8.6 K/mm3 (4.0-10.0)
--- NOTE | 2020-04-27 14:56 | HP ---
CHIEF COMPLAINT: left foot pain PCP: Kelly ([facility]) HISTORY OF PRESENT ILLNESS: Pt is a 59 y/o male with HTN, DM, a-fib (unknown AC status), CAD, GERD, and DJD c/o LLE pain and swelling after trauma. He reports that he was attempting to get out of a swimming pool and he stepped into surrounding foliage. He states that he did not remember breaking skin or bleeding. He did not take any medication or attempt treatment at home. Over the course of the subsequent 2 days, his foot began to swell and become red, which prompted him to come to the hospital yesterday. He was given abx and then eloped. He returned today due to worsening pain. ER course was notable for: (1) clindamycin, vancomycin (2) Na 132, Cr 1.9, BG 576 PAST MEDICAL HISTORY: HTN, DM, a-fib (unknown AC status), CAD, GERD, DJD PAST SURGICAL HISTORY: Social History: Smoking: Alcohol: Drugs: Allergies morphine Allergy (Severe, Verified 03/16/18 09:27) Rash;ITCHING HOME MEDICATIONS: Home Medications Medication Instructions Recorded Amlodipine Besylate [Norvasc -] 5 mg PO DAILY 04/26/20 Atorvastatin Calcium 40 mg PO HS 04/26/20 Carvedilol [Coreg -] 25 mg PO BID 04/26/20 Famotidine [Pepcid] 20 mg PO BID 04/26/20 Hydrochlorothiazide 12.5 mg PO DAILY 04/26/20 Losartan Potassium 100 mg PO DAILY 04/26/20 Metformin HCl [Glucophage] 500 mg PO BID 04/26/20 REVIEW OF SYSTEMS see HPI PHYSICAL EXAMINATION Vital Signs - 24 hr 04/27/20 13:29 Pulse Rate 108 H Respiratory 22 H Rate Blood Pressure 106/85 O2 Sat by Pulse 98 Oximetry (%) GENERAL: A&Ox3, in moderate discomfort. HEAD: Normal with no signs of trauma. EYES: PERRL, EOMI. EARS, NOSE, THROAT: Ears normal, nares patent, moist mucous membranes. NECK: Normal range of motion. ABDOMEN: Soft, not distended. MUSCULOSKELETAL: Normal range of motion at all joints. UPPER EXTREMITIES: Warm, well-perfused. No peripheral edema. LOWER EXTREMITIES: Warm, well-perfused. No peripheral edema. Left dorsal surface of foot erythematous with pinpoint area of purulent drainage. NEUROLOGICAL: Cranial nerves II-XII grossly intact. Normal speech. PSYCHIATRIC: Cooperative. Good eye contact. Appropriate mood and affect. SKIN: Warm, dry, normal turgor. Laboratory Results - last 24 hr 04/27/20 14:20 WBC 8.6 RBC 4.90 Hgb 15.2 Hct 45.8 MCV 93.6 MCH 31.0 MCHC 33.1 RDW 13.7 Plt Count 232 MPV 9.0 Absolute Neuts (auto) 6.2 Neutrophils % 72.3 Lymphocytes % 20.1 D Monocytes % 6.1 Eosinophils % 1.0 D Basophils % 0.5 Nucleated RBC % 0 ASSESSMENT/PLAN: Pt is a 59 y/o male with HTN, NIDDM, a-fib (unsure if on AC), CAD, and DJD c/o LLE pain and swelling after trauma. He initially presented to ED yesterday but eloped. Today he is being admitted for IV abx for left dorsal abscess/cellulitis. #left dorsal foot abscess -elevated Alk Phos, consider x-ray if rises -vancomycin -Zosyn -Ofirmev for pain -consider small dose of Dilaudid if not improving with Ofirmev -wound culture -ID consult -podiatry consult -wound care consult #TAMARA #pseudohyponatremia -nephrotoxic agents (NSAIDs, metformin, losartan/HCTZ, and vancomycin) vs dehydration with hyperglycemia -Cr 1.4-->1.9 since yesterday -Na 132 corrected to 140 for hyperglycemia -NS 125mL/hr -UA/electrolytes -nephro consult #uncontrolled NIDDM -no anion gap with hyperglycemia -BG 576 -check A1C -BGMs -SSI -Levemir 15U BID starting tonight #a-fib -has not filled Eliquis in over a year -sub Q heparin #HTN -pressure low normal -hold amlodipine -hold carvedilol -hold losartan/HCTZ #CAD -continue statin #GERD -continue famotidine DVT Ppx herparin FEN NS 125mL/hr monitor Cr, BG sodium/diabetic diet dispo med/surg ATTENDING PHYSICIAN STATEMENT I saw and evaluated the patient. I reviewed the resident's note and discussed the case with the resident. I agree with the resident's findings and plan as documented. SUBJECTIVE: OBJECTIVE: ASSESSMENT AND PLAN:
[2020-04-27] MEDS ORDERED: PIPERACILLIN/TAZOB 4.5 GM 4.5 GM in DEXTROSE 5%-WATER 100 ML IVPB SCH ×2 (15:00→18:00)
[2020-04-27] MEDS ORDERED: VANCOMYCIN HCL 1,500 MG in DEXTROSE 5%-WATER - 500 ML IVPB SCH (15:00)
[2020-04-27] MEDS ORDERED: VANCOMYCIN HCL 1,500 MG in DEXTROSE 5%-WATER - 250 ML IVPB SCH ×2 (15:00→22:00)
[2020-04-27 15:09] LABS: ALBUMIN 2.9 g/dl (3.4-5.0); BILIRUBIN,TOTAL 0.7 mg/dL (0.2-1); BLOOD UREA NITROGEN 19.4 mg/dL (7-18); CALCIUM 7.7 mg/dL (8.5-10.1); CREATININE 1.9 mg/dL (0.55-1.3); POTASSIUM 4.7 mmol/L (3.5-5.1); TOT PROT 7.8 g/dl (6.4-8.2)
[2020-04-27] MEDS ORDERED: PIPERACILLIN/TAZOB 4.5 GM 4.5 GM/100 ML BAG IVPB ONE (15:37)
--- NOTE | 2020-04-27 15:38 | PDOC ---
Documentation entered by Elham Saucedo SCRIBE, acting as scribe for Luis Caputo MD. Luis Caputo MD: This documentation has been prepared by the Sheryl vieyra Brenda, SCRIBE, under my direction and personally reviewed by me in its entirety. I confirm that the documentation accurately reflects all work, treatment, procedures, and medical decision making performed by me. Attending Attestation - Resident Resident Name: Martin Bennett - ED Attending Attestation I have performed the following: I have examined & evaluated the patient, The case was reviewed & discussed with the resident, I agree w/resident's findings & plan, Exceptions are as noted - HPI HPI: 04/27/20 15:16 The patient is a 59 year old male with a significant pmh of HTN, DM, Afib on Eliqius, CAD, and DJD c/o LLE pain who presents to the ED to be admitted. Patient was admitted yesterday to [facility] (physically in the ED) for left ankle cellulites but then eloped. Allergies: Morphine - Physicial Exam PE: 04/27/20 15:38 Vitals: Triage Vital signs reviewed negative tomorrow on course of General Appearance: No acute distress, well nourished well developed, Head: Atraumatic, Chest Wall: Nontender Cardiac: Regular rate and rhythym, no murmurs, no rubs, no gallops, Lungs: Clear to auscultation bilateral, good air movement bilaterally, Abdomen: Soft, non distended, normal bowel sounds, non tender to palpation Extremities: Left foot swollen warm to touch possible collection over midfoot Psych: Normal mood, normal affect - Medical Decision Making 04/27/20 15:39 59 years old was recently admitted for left foot cellulitis signed out AMA presents. Foot is worse more swollen more red warm to touch will reinitiate antibiotics podiatry consultation and admission for further management. Discharge - Discharge Information Problems reviewed: Yes Clinical Impression/Diagnosis: Cellulitis and abscess of foot - Follow up/Referral - Patient Discharge Instructions - Post Discharge Activity
[2020-04-27] MEDS: INSULIN SLIDING SCALE (NOVOLOG) 1 VIAL SQ SCH ×2 (15:58→23:11)
--- OUTSIDE RECORDS SUMMARY | 2020-04-27 16:29 | XMS ---
:1960 Author Organization [facility] Support Name Relationship Address Phone RE, RETIRED Unavailable Unavailable Unavailable ANKITA CATES SON [address] [place] [address] RE Unavailable Unavailable Unavailable ULI CATES MOTHER [address] [place] [id number] ANKITA CATES Child [address] [place] [address] Re-disclosure Warning The records that you are about to access may contain information from federally- assisted alcohol or drug abuse programs. If such information is present, then the following federally mandated warning applies: This information has been disclosed to you from records protected by federal confidentiality rules (42 CFR part 2). The federal rules prohibit you from making any further disclosure of this information unless further disclosure is expressly permitted by the written consent of the person to whom it pertains or as otherwise permitted by 42 CFR part 2. A general authorization for the release of medical or other information is NOT sufficient for this purpose. The Federal rules restrict any use of the information to criminally investigate or prosecute any alcohol or drug abuse patient.The records that you are about to access may contain highly sensitive health information, the redisclosure of which is protected by Article 27-F of the [facility] Public Health law. If you continue you may haveaccess to information: Regarding HIV / AIDS; Provided by facilities licensed or operated by the [facility] Office of Mental Health; or Provided by the [facility] Office for People With Developmental Disabilities. If such information is present, then the following [facility] mandated warning applies: This information has been disclosed to you from confidential records which are protected by state law. State law prohibits you from making any further disclosure of this information without the specific written consent of the person to whom it pertains, or as otherwise permitted by law. Any unauthorized further disclosure in violation of state law may result in a fine or long term sentence or both. A general authorization for the release of medical or other information is NOT sufficient authorization for further disclosure. Insurance Providers Payer name Policy type Policy ID Covered Covered democrat's Policy P bree / Coverage democrat ID relationship to Thakkar Inf ormation type thakkar BLUE CROSS [id number] SP [id number] SENIOR PLAN 02 MEDICARE [id number] SP [id number] A
[2020-04-27] MEDS ORDERED: ACETAMINOPHEN 1000 MG/100 ML VIAL (NON FORMULARY) IVPB PRN (16:30)
--- NOTE | 2020-04-27 16:44 | PN ---
Teaching Attending Note Name of Resident: Mariola Forrest ATTENDING PHYSICIAN STATEMENT I saw and evaluated the patient. I reviewed the resident's note and discussed the case with the resident. I agree with the resident's findings and plan as documented. SUBJECTIVE: Patient seen and examined at bedside, presents w/ abscess L dorsum of foot, was here yesterday received abx but then absconded from ED, now back today insisting that LLE foot pain has worsened, denies other symptoms. VSS. OBJECTIVE: GA mild distress, disheveled appearance, AAox3 HEENT NC/AT, EOMI, dry MM Chest CTAB CVS s1, S2+, RRR, no m/r/g Abd obese, Soft, NT, no guarding Ext no LE edema, open abscess in LLE with fluctuance with blood pus expressed when squeezed, good pedal pulses, old healed boil R foot. Vital Signs (72 hours) 04/27/20 13:29 Pulse Rate 108 H Respiratory 22 H Rate Blood Pressure 106/85 O2 Sat by Pulse 98 Oximetry (%) Laboratory Results - last 24 hr 04/27/20 04/27/20 14:20 14:20 WBC 8.6 RBC 4.90 Hgb 15.2 Hct 45.8 MCV 93.6 MCH 31.0 MCHC 33.1 RDW 13.7 Plt Count 232 MPV 9.0 Absolute Neuts (auto) 6.2 Neutrophils % 72.3 Lymphocytes % 20.1 D Monocytes % 6.1 Eosinophils % 1.0 D Basophils % 0.5 Nucleated RBC % 0 Sodium 132 L Potassium 4.7 Chloride 99 Carbon Dioxide 26 Anion Gap 7 L BUN 19.4 H Creatinine 1.9 H Est GFR (CKD-EPI)AfAm 43.75 Est GFR (CKD-EPI)NonAf 37.75 Random Glucose 576 H* Calcium 7.7 L Total Bilirubin 0.7 AST 18 ALT 31 Alkaline Phosphatase 124 H Total Protein 7.8 Albumin 2.9 L Home Medications Medication Instructions Recorded Amlodipine Besylate [Norvasc -] 5 mg PO DAILY 04/26/20 Atorvastatin Calcium 40 mg PO HS 04/26/20 Carvedilol [Coreg -] 25 mg PO BID 04/26/20 Famotidine [Pepcid] 20 mg PO BID 04/26/20 Hydrochlorothiazide 12.5 mg PO DAILY 04/26/20 Losartan Potassium 100 mg PO DAILY 04/26/20 Metformin HCl [Glucophage] 500 mg PO BID 04/26/20 Current Medications Generic Name Dose Route Start Last Admin Trade Name Ebony PRN Reason Stop Dose Admin Acetaminophen 1,000 mg 04/27/20 16:30 Ofirmev Injection - IVPB Q6H PRN PAIN LEVEL 1-5 Atorvastatin Calcium 40 mg 04/27/20 22:00 Lipitor - PO HS CHIP Famotidine 20 mg 04/27/20 22:00 Pepcid - PO BID CHIP Heparin Sodium (Porcine) 5,000 unit 04/27/20 22:00 Heparin - SQ TID CHIP Piperacillin Sod/Tazobactam 100 mls @ 200 mls/hr 04/27/20 15:00 Sod 4.5 gm/ Dextrose IVPB Q8H-IV CHIP Protocol Vancomycin HCl 1,500 mg/ 250 mls @ 125 mls/hr 04/27/20 22:00 Dextrose IVPB Q12H CHIP Protocol Piperacillin Sod/Tazobactam 100 mls @ 200 mls/hr 04/27/20 15:00 Sod 4.5 gm/ Dextrose IVPB 04/28/20 14:59 Q8H CHIP Protocol Vancomycin HCl 1,500 mg/ 500 mls @ 250 mls/hr 04/27/20 22:00 Dextrose IVPB 04/28/20 11:59 Q12H CHIP Protocol Sodium Chloride 1,000 mls @ 125 mls/hr 04/27/20 15:45 Normal Saline - IV ASDIR CHIP Insulin Aspart 1 vial 04/27/20 16:30 04/27/20 15:58 Novolog Vial Sliding Scale - SQ 12 units ACHS CHIP Administration Protocol Insulin Detemir 15 units 04/27/20 22:00 Levemir Vial SQ BID [facility] ASSESSMENT AND PLAN: 59 M LLE cellulitic abscess r/o L foot osteomyelitis HTN Uncontrolled T2DM w/ hyperglycemia GERD Morbid obesity HLD Plan: IV Zosyn/Vancomycin Vascular surgery/Podiatry consult for I&D of abscess Strict glycemic control w/ basal coverage BID and premeal insulin Send a1c/tsh/lipids/ESR/CRP DVT ppx: Heparin SC
[2020-04-27] MEDS: PIPERACILLIN/TAZOB 4.5 GM 4.5 GM in DEXTROSE 5%-WATER 100 ML IVPB SCH ×2 (17:17→23:11)
[2020-04-27] MEDS: SODIUM CHLORIDE 1,000 ML IV SCH (17:17)
[2020-04-27] MEDS ORDERED: FAMOTIDINE 20 MG TABLET ONE (22:16)
[2020-04-27] MEDS ORDERED: ATORVASTATIN CA 40 MG TABLET (FP) ONE (22:16)
[2020-04-27] MEDS ORDERED: HEPARIN NA (PORCINE) 5,000 UNITS/ML 1ML VIAL ONE (22:16)
[2020-04-27] MEDS ORDERED: INSULIN (LEVEMIR) 100 UNITS/ML UNITS SQ ONE (22:18)
[2020-04-27] MEDS: INSULIN (LEVEMIR) 100 UNITS/ML UNITS SQ SCH (23:10)
[2020-04-27] MEDS: ATORVASTATIN CA 40 MG TABLET (FP) PO SCH (23:11)
[2020-04-27] MEDS: HEPARIN NA (PORCINE) 5,000 UNITS/ML 1ML VIAL SQ SCH (23:11)
[2020-04-27] MEDS: VANCOMYCIN HCL 1,500 MG in DEXTROSE 5%-WATER - 500 ML IVPB SCH (23:11)
[2020-04-27] MEDS: FAMOTIDINE 20 MG TABLET PO SCH (23:11)
[2020-04-28] MEDS ORDERED: PIPERACILLIN/TAZOB 4.5 GM 4.5 GM/100 ML BAG IVPB ONE (06:24)
[2020-04-28] MEDS ORDERED: HEPARIN NA (PORCINE) 5,000 UNITS/ML 1ML VIAL ONE ×3 (06:24→22:35)
[2020-04-28] MEDS: HEPARIN NA (PORCINE) 5,000 UNITS/ML 1ML VIAL SQ SCH ×3 (06:41→22:54)
[2020-04-28] MEDS: PIPERACILLIN/TAZOB 4.5 GM 4.5 GM in DEXTROSE 5%-WATER 100 ML IVPB SCH (06:42)
[2020-04-28] MEDS: INSULIN (LEVEMIR) 100 UNITS/ML UNITS SQ SCH ×2 (06:46→22:54)
[2020-04-28 07:51] LABS: BASO % 0.5 % (0-2.0); EOS % 1.8 % (0-4.5); HEMATOCRIT 45.5 % (35.4-49); HEMOGLOBIN 15.2 GM/dL (11.7-16.9); LYMPH % 27.1 % (8-40); MCH 30.4 pg (25.7-33.7); MCHC 33.4 g/dl (32.0-35.9); MEAN CELL VOLUME 90.8 fl (80-96); MEAN PLT VOLUME 8.3 fl (7.5-11.1); NEUT % 62.6 % (42.8-82.8); PLATELET COUNT 258 K/MM3 (134-434); RBC 5.01 M/mm3 (4.00-5.60); RDW 13.7 % (11.9-15.9); WHITE BLOOD COUNT 7.5 K/mm3 (4.0-10.0)
[2020-04-28 08:23] LABS: POTASSIUM 4.4 mmol/L (3.5-5.1)
[2020-04-28] MEDS: INSULIN SLIDING SCALE (NOVOLOG) 1 VIAL SQ SCH ×3 (08:47→22:54)
[2020-04-28 08:48] LABS: BILIRUBIN,TOTAL 1.1 mg/dL (0.2-1); BLOOD UREA NITROGEN 17.5 mg/dL (7-18); CALCIUM 8.9 mg/dL (8.5-10.1); CREATININE 1.4 mg/dL (0.55-1.3); MAGNESIUM 2.4 mg/dL (1.8-2.4); PHOSPHOROUS 3.6 mg/dL (2.5-4.9)
--- NOTE | 2020-04-28 09:07 | EKG ---
Test Reason : Blood Pressure : / mmHG Vent. Rate : 102 BPM Atrial Rate : 102 BPM P-R Int : 142 ms QRS Dur : 088 ms QT Int : 328 ms P-R-T Axes : 069 049 -52 degrees QTc Int : 427 ms POOR DATA QUALITY, INTERPRETATION MAY BE ADVERSELY AFFECTED SINUS TACHYCARDIA POSSIBLE ANTERIOR INFARCT , AGE UNDETERMINED T WAVE ABNORMALITY, CONSIDER INFERIOR ISCHEMIA ABNORMAL ECG WHEN COMPARED WITH ECG OF 26-APR-2020 03:00, T WAVE INVERSION NOW EVIDENT IN INFERIOR LEADS Confirmed by MD BRETT, JULIETTE ([id number]) on 04/28/2020 9:06:53 AM Referred By: Confirmed By:JULIETTE WEST MD
--- NOTE | 2020-04-28 09:53 | PN ---
Physical Exam: SUBJECTIVE: Patient seen and examined in the ED awaiting bed assignment. OBJECTIVE: Patient is a 59 year old male with a significant past medical history of HTN, DM, CAD, GERD, and DJD c/o LLE pain and swelling after trauma while in the swimming pool. He reports that he was attempting to get out of a swimming pool and he stepped into surrounding foliage. He states that he did not remember breaking skin or bleeding. He did not take any medication or attempt treatment at home. Over the course of the subsequent 2 days, his foot began to swell and become red, which prompted him to come to the hospital on 04/26. He was given abx and then eloped. He returned today due to worsening pain. Period Temp Pulse Resp BP Sys/Bello Pulse Ox Last 24 Hr 98.2 F 99-108 16-22 106-128/79-85 98-98 GENERAL: The patient is awake, alert, and fully oriented, angry and agitated. he began to yell at me when i asked him questions. HEAD: Normal with no signs of trauma. EYES: PERRL, extraocular movements intact, sclera anicteric, conjunctiva clear. No ptosis. ENT: Ears normal, nares patent NECK: Trachea midline, full range of motion, supple. LUNGS: Breath sounds clear to auscultation anteriorly HEART: Regular rate and rhythm ABDOMEN: Soft, nontender, nondistended, normoactive bowel sounds EXTREMITIES: edema of left foot, anterior aspect of foot with drainage, erythema, open abscess in LLE with sero sang drainage NEUROLOGICAL: Normal speech, gait not observed. Laboratory Results - last 24 hr 04/27/20 04/27/20 04/27/20 14:20 14:20 14:20 WBC 8.6 RBC 4.90 Hgb 15.2 Hct 45.8 MCV 93.6 MCH 31.0 MCHC 33.1 RDW 13.7 Plt Count 232 MPV 9.0 Absolute Neuts (auto) 6.2 Neutrophils % 72.3 Lymphocytes % 20.1 D Monocytes % 6.1 Eosinophils % 1.0 D Basophils % 0.5 Nucleated RBC % 0 Sodium 132 L Potassium 4.7 Chloride 99 Carbon Dioxide 26 Anion Gap 7 L BUN 19.4 H Creatinine 1.9 H Est GFR (CKD-EPI)AfAm 43.75 Est GFR (CKD-EPI)NonAf 37.75 POC Glucometer Random Glucose 576 H* Calcium 7.7 L Phosphorus Magnesium Total Bilirubin 0.7 AST 18 ALT 31 Alkaline Phosphatase 124 H Total Protein 7.8 Albumin 2.9 L Urine Color Urine Appearance Urine pH Ur Specific [place] Urine Protein Urine Glucose (UA) Urine Ketones Urine Blood Urine Nitrite Urine Bilirubin Urine Urobilinogen Ur Leukocyte Esterase Urine WBC (Auto) Urine RBC (Auto) Urine Casts (Auto) U Pathogenic Cast Auto U Epithel Cells (Auto) U Sm Round Cell (Auto) Urine Crystals (Auto) Urine Bacteria (Auto) Urine Yeast (Auto) Ur Random Creatinine Ur Random Sodium Ur Random Potassium Ur Random Chloride Random Vancomycin COVID-19 (RONA) Not detected 04/27/20 04/27/20 04/27/20 17:30 17:30 22:22 WBC RBC Hgb Hct MCV MCH MCHC RDW Plt Count MPV Absolute Neuts (auto) Neutrophils % Lymphocytes % Monocytes % Eosinophils % Basophils % Nucleated RBC % Sodium Potassium Chloride Carbon Dioxide Anion Gap BUN Creatinine Est GFR (CKD-EPI)AfAm Est GFR (CKD-EPI)NonAf POC Glucometer 464 Random Glucose Calcium Phosphorus Magnesium Total Bilirubin AST ALT Alkaline Phosphatase Total Protein Albumin Urine Color Cancelled Urine Appearance Cancelled Urine pH Cancelled Ur Specific [place] Cancelled Urine Protein Cancelled Urine Glucose (UA) Cancelled Urine Ketones Cancelled Urine Blood Cancelled Urine Nitrite Cancelled Urine Bilirubin Cancelled Urine Urobilinogen Cancelled Ur Leukocyte Esterase Cancelled Urine WBC (Auto) Cancelled Urine RBC (Auto) Cancelled Urine Casts (Auto) Cancelled U Pathogenic Cast Auto Cancelled U Epithel Cells (Auto) Cancelled U Sm Round Cell (Auto) Cancelled Urine Crystals (Auto) Cancelled Urine Bacteria (Auto) Cancelled Urine Yeast (Auto) Cancelled Ur Random Creatinine Cancelled Ur Random Sodium Cancelled Ur Random Potassium Cancelled Ur Random Chloride Cancelled Random Vancomycin COVID-19 (RONA) 04/28/20 04/28/20 04/28/20 06:38 07:20 07:20 WBC 7.5 RBC 5.01 Hgb 15.2 Hct 45.5 MCV 90.8 MCH 30.4 MCHC 33.4 RDW 13.7 Plt Count 258 MPV 8.3 Absolute Neuts (auto) 4.7 Neutrophils % 62.6 Lymphocytes % 27.1 D Monocytes % 8.0 Eosinophils % 1.8 Basophils % 0.5 Nucleated RBC % 0 Sodium Potassium Chloride Carbon Dioxide Anion Gap BUN Creatinine Est GFR (CKD-EPI)AfAm Est GFR (CKD-EPI)NonAf POC Glucometer 238 Random Glucose Calcium Phosphorus Magnesium Total Bilirubin AST ALT Alkaline Phosphatase Total Protein Albumin Urine Color Urine Appearance Urine pH Ur Specific [place] Urine Protein Urine Glucose (UA) Urine Ketones Urine Blood Urine Nitrite Urine Bilirubin Urine Urobilinogen Ur Leukocyte Esterase Urine WBC (Auto) Urine RBC (Auto) Urine Casts (Auto) U Pathogenic Cast Auto U Epithel Cells (Auto) U Sm Round Cell (Auto) Urine Crystals (Auto) Urine Bacteria (Auto) Urine Yeast (Auto) Ur Random Creatinine Ur Random Sodium Ur Random Potassium Ur Random Chloride Random Vancomycin 16.8 COVID-19 (RONA) 04/28/20 04/28/20 07:20 08:37 WBC RBC Hgb Hct MCV MCH MCHC RDW Plt Count MPV Absolute Neuts (auto) Neutrophils % Lymphocytes % Monocytes % Eosinophils % Basophils % Nucleated RBC % Sodium 134 L Potassium 4.4 Chloride 100 Carbon Dioxide 27 Anion Gap 7 L BUN 17.5 Creatinine 1.4 H Est GFR (CKD-EPI)AfAm 63.29 Est GFR (CKD-EPI)NonAf 54.60 POC Glucometer 246 Random Glucose 219 H Calcium 8.9 Phosphorus 3.6 Magnesium 2.4 Total Bilirubin 1.1 H AST 12 L ALT 26 Alkaline Phosphatase 104 Total Protein 7.0 Albumin 3.0 L Urine Color Urine Appearance Urine pH Ur Specific [place] Urine Protein Urine Glucose (UA) Urine Ketones Urine Blood Urine Nitrite Urine Bilirubin Urine Urobilinogen Ur Leukocyte Esterase Urine WBC (Auto) Urine RBC (Auto) Urine Casts (Auto) U Pathogenic Cast Auto U Epithel Cells (Auto) U Sm Round Cell (Auto) Urine Crystals (Auto) Urine Bacteria (Auto) Urine Yeast (Auto) Ur Random Creatinine Ur Random Sodium Ur Random Potassium Ur Random Chloride Random Vancomycin COVID-19 (RONA) Active Medications Generic Name Dose Route Start Last Admin Trade Name Freq PRN Reason Stop Dose Admin Acetaminophen 1,000 mg 04/27/20 16:30 Ofirmev Injection - IVPB Q6H PRN PAIN LEVEL 1-5 Atorvastatin Calcium 40 mg 04/27/20 22:00 04/27/20 23:11 Lipitor - PO 40 mg HS CHIP Administration Famotidine 20 mg 04/27/20 22:00 04/27/20 23:11 Pepcid - PO 20 mg BID CHIP Administration Heparin Sodium (Porcine) 5,000 unit 04/27/20 22:00 04/28/20 06:41 Heparin - SQ 5,000 unit TID CHIP Administration Piperacillin Sod/Tazobactam 100 mls @ 200 mls/hr 04/27/20 15:00 Sod 4.5 gm/ Dextrose IVPB Q8H-IV CHIP Protocol Vancomycin HCl 1,500 mg/ 250 mls @ 125 mls/hr 04/27/20 22:00 Dextrose IVPB Q12H CHIP Protocol Piperacillin Sod/Tazobactam 100 mls @ 200 mls/hr 04/27/20 15:00 04/28/20 06:42 Sod 4.5 gm/ Dextrose IVPB 04/28/20 14:59 200 mls/hr Q8H CHIP Administration Protocol Vancomycin HCl 1,500 mg/ 500 mls @ 250 mls/hr 04/27/20 22:00 04/27/20 23:11 Dextrose IVPB 04/28/20 11:59 250 mls/hr Q12H CHIP Administration Protocol Sodium Chloride 1,000 mls @ 125 mls/hr 04/27/20 15:45 04/27/20 17:17 Normal Saline - IV 125 mls/hr ASDIR CHIP Administration Insulin Aspart 1 vial 04/27/20 16:30 04/28/20 08:47 Novolog Vial Sliding Scale - SQ 4 units ACHS CHIP Administration Protocol Insulin Detemir 15 units 04/27/20 22:00 04/28/20 06:46 Levemir Vial SQ 15 unit BID@0700,2200 CHIP Administration ASSESSMENT/PLAN: Problem List - Problems (1) Cellulitis and abscess of foot Assessment/Plan: podiatry plans to take pt to the OR tomorrow for I&D. left foot xray 04/26: edema of foot, no acute fracture, questionable air in the soft tissue on zosyn and vanco per ID Code(s): L03.119 - CELLULITIS OF UNSPECIFIED PART OF LIMB; L02.619 - CUTANEOUS ABSCESS OF UNSPECIFIED FOOT (2) Hyperlipidemia Code(s): E78.5 - HYPERLIPIDEMIA, UNSPECIFIED Qualifiers: Hyperlipidemia type: pure hypercholesterolemia Qualified Code(s): E78.00 - Pure hypercholesterolemia, unspecified; E78.0 - Pure hypercholesterolemia (3) Eixvw-at-xkdwywy kidney injury Assessment/Plan: renal dose medications. monitor Malou with daily labs Code(s): N17.9 - ACUTE KIDNEY FAILURE, UNSPECIFIED; N18.9 - CHRONIC KIDNEY DISEASE, UNSPECIFIED Qualifiers: Chronic kidney disease stage: stage 2 (mild) (4) Paroxysmal atrial fibrillation Assessment/Plan: rate controlled on metoprolol not on a/c, unclear as to why, attempted to discuss with patient but he became angry and belligerent Code(s): I48.0 - PAROXYSMAL ATRIAL FIBRILLATION (5) HTN (hypertension) Assessment/Plan: bp on the lower end, will hold norvasc 5, continue coreq bid losartan and hctz on hold for malou Code(s): I10 - ESSENTIAL (PRIMARY) HYPERTENSION Qualifiers: Hypertension type: essential hypertension Qualified Code(s): I10 - Essential (primary) hypertension (6) Foot abscess, left Assessment/Plan: left foot abscess that developed 3 days ago. podiatry plans to take pt to the OR tomorrow for I&D. left foot xray 04/26: edema of foot, no acute fracture, questionable air in the soft tissue Code(s): L02.612 - CUTANEOUS ABSCESS OF LEFT FOOT (7) Diabetes Assessment/Plan: diabetes uncontrolled. a1c 13.9 on levemir bid Code(s): E11.9 - TYPE 2 DIABETES MELLITUS WITHOUT COMPLICATIONS (8) DVT prophylaxis Assessment/Plan: on heparin Code(s): Z29.9 - ENCOUNTER FOR PROPHYLACTIC MEASURES, UNSPECIFIED Visit type - Emergency Visit Emergency Visit: Yes ED Registration Date: 04/27/20 Care time: The patient presented to the Emergency Department on the above date and was hospitalized for further evaluation of their emergent condition. - New Patient This patient is new to me today: Yes Date on this admission: 04/28/20 - Critical Care Critical Care patient: No - Discharge Referral Referred to [facility] No
[2020-04-28] MEDS: VANCOMYCIN HCL 1,500 MG in DEXTROSE 5%-WATER - 500 ML IVPB SCH (10:00)
[2020-04-28] MEDS: FAMOTIDINE 20 MG TABLET PO SCH ×2 (10:00→22:54)
--- NOTE | 2020-04-28 11:53 | CONSULT ---
Consultation: REQUESTING PROVIDER: Dr. Forrest Nephrology service- Resident consult note CONSULT REQUEST: We have been asked to medically evaluate this patient for acute kidney injury HISTORY OF PRESENT ILLNESS: Patient is a 59 year old male with history of hypertension, hyperlipidemia, diabetes mellitus, Afib, coronary artery disease, presents with complaint of left lower extremity pain, after a fall at swimming pool. He was seen in [facility] Emergency Department yesterday, however eloped. He presents again today with worsening complaint. In ED he was hyponatremic to 132, with BUN 12.4, Cr 1.9 (baseline approx 1.3). Patient denies any recent antibiotics, nsaids. Denies subjective fevers, chills, shortness of breath, chest pain, palpitations, abdominal pain, nausea, vomiting, dysuria, hematuria. Medical history: hypertension, hyperlipidemia, diabetes mellitus, Afib, coronary artery disease Surgical history: bilateral knee surgeries Family history: noncontributory Social: former smoker. denies smoking cigarettes, illicit drug use, REVIEW OF SYSTEMS: As per HPI PHYSICAL EXAMINATION Vital Signs - 24 hr 04/27/20 04/27/20 04/28/20 13:29 22:00 06:01 Temperature 98.2 F Pulse Rate 108 H Pulse Rate [ 103 H 99 H Left Radial] Respiratory 22 H 16 17 Rate Blood Pressure 106/85 Blood Pressure 128/79 115/85 [Right Arm] O2 Sat by Pulse 98 98 98 Oximetry (%) GENERAL: The patient is awake, alert, and fully oriented, in no acute distress. HEAD: Normocephalic, atraumatic. EYES: PERRL, extraocular movements intact, conjunctiva clear. ENT: Moist mucous membranes. NECK: Supple without lymphadenopathy. LUNGS: Breath sounds equal, clear to auscultation bilaterally. No accessory muscle use. HEART: Regular rate and rhythm. S1, S2 without murmur, rub or gallop. ABDOMEN: Obese abdomen. Soft, nondistended, nontender to light and deep palpation x4 quadrants. EXTREMITIES: Left lower extremity with erythema to ankle. Dorsal aspect with 1cm lesion with sanguinous drainage. NEUROLOGICAL: Cranial nerves II through XII grossly intact. No gross focal deficits. SKIN: Warm, dry. Laboratory Results - last 24 hr 04/27/20 04/27/20 04/27/20 14:20 14:20 14:20 WBC 8.6 RBC 4.90 Hgb 15.2 Hct 45.8 MCV 93.6 MCH 31.0 MCHC 33.1 RDW 13.7 Plt Count 232 MPV 9.0 Absolute Neuts (auto) 6.2 Neutrophils % 72.3 Lymphocytes % 20.1 D Monocytes % 6.1 Eosinophils % 1.0 D Basophils % 0.5 Nucleated RBC % 0 Sodium 132 L Potassium 4.7 Chloride 99 Carbon Dioxide 26 Anion Gap 7 L BUN 19.4 H Creatinine 1.9 H Est GFR (CKD-EPI)AfAm 43.75 Est GFR (CKD-EPI)NonAf 37.75 POC Glucometer Random Glucose 576 H* Calcium 7.7 L Phosphorus Magnesium Total Bilirubin 0.7 AST 18 ALT 31 Alkaline Phosphatase 124 H Total Protein 7.8 Albumin 2.9 L Urine Color Urine Appearance Urine pH Ur Specific [place] Urine Protein Urine Glucose (UA) Urine Ketones Urine Blood Urine Nitrite Urine Bilirubin Urine Urobilinogen Ur Leukocyte Esterase Urine WBC (Auto) Urine RBC (Auto) Urine Casts (Auto) U Pathogenic Cast Auto U Epithel Cells (Auto) U Sm Round Cell (Auto) Urine Crystals (Auto) Urine Bacteria (Auto) Urine Yeast (Auto) Ur Random Creatinine Ur Random Sodium Ur Random Potassium Ur Random Chloride Random Vancomycin COVID-19 (RONA) Not detected 04/27/20 04/27/20 04/27/20 17:30 17:30 22:22 WBC RBC Hgb Hct MCV MCH MCHC RDW Plt Count MPV Absolute Neuts (auto) Neutrophils % Lymphocytes % Monocytes % Eosinophils % Basophils % Nucleated RBC % Sodium Potassium Chloride Carbon Dioxide Anion Gap BUN Creatinine Est GFR (CKD-EPI)AfAm Est GFR (CKD-EPI)NonAf POC Glucometer 464 Random Glucose Calcium Phosphorus Magnesium Total Bilirubin AST ALT Alkaline Phosphatase Total Protein Albumin Urine Color Cancelled Urine Appearance Cancelled Urine pH Cancelled Ur Specific [place] Cancelled Urine Protein Cancelled Urine Glucose (UA) Cancelled Urine Ketones Cancelled Urine Blood Cancelled Urine Nitrite Cancelled Urine Bilirubin Cancelled Urine Urobilinogen Cancelled Ur Leukocyte Esterase Cancelled Urine WBC (Auto) Cancelled Urine RBC (Auto) Cancelled Urine Casts (Auto) Cancelled U Pathogenic Cast Auto Cancelled U Epithel Cells (Auto) Cancelled U Sm Round Cell (Auto) Cancelled Urine Crystals (Auto) Cancelled Urine Bacteria (Auto) Cancelled Urine Yeast (Auto) Cancelled Ur Random Creatinine Cancelled Ur Random Sodium Cancelled Ur Random Potassium Cancelled Ur Random Chloride Cancelled Random Vancomycin COVID-19 (RONA) 04/28/20 04/28/20 04/28/20 06:38 07:20 07:20 WBC 7.5 RBC 5.01 Hgb 15.2 Hct 45.5 MCV 90.8 MCH 30.4 MCHC 33.4 RDW 13.7 Plt Count 258 MPV 8.3 Absolute Neuts (auto) 4.7 Neutrophils % 62.6 Lymphocytes % 27.1 D Monocytes % 8.0 Eosinophils % 1.8 Basophils % 0.5 Nucleated RBC % 0 Sodium Potassium Chloride Carbon Dioxide Anion Gap BUN Creatinine Est GFR (CKD-EPI)AfAm Est GFR (CKD-EPI)NonAf POC Glucometer 238 Random Glucose Calcium Phosphorus Magnesium Total Bilirubin AST ALT Alkaline Phosphatase Total Protein Albumin Urine Color Urine Appearance Urine pH Ur Specific [place] Urine Protein Urine Glucose (UA) Urine Ketones Urine Blood Urine Nitrite Urine Bilirubin Urine Urobilinogen Ur Leukocyte Esterase Urine WBC (Auto) Urine RBC (Auto) Urine Casts (Auto) U Pathogenic Cast Auto U Epithel Cells (Auto) U Sm Round Cell (Auto) Urine Crystals (Auto) Urine Bacteria (Auto) Urine Yeast (Auto) Ur Random Creatinine Ur Random Sodium Ur Random Potassium Ur Random Chloride Random Vancomycin 16.8 COVID-19 (RONA) 04/28/20 04/28/20 07:20 08:37 WBC RBC Hgb Hct MCV MCH MCHC RDW Plt Count MPV Absolute Neuts (auto) Neutrophils % Lymphocytes % Monocytes % Eosinophils % Basophils % Nucleated RBC % Sodium 134 L Potassium 4.4 Chloride 100 Carbon Dioxide 27 Anion Gap 7 L BUN 17.5 Creatinine 1.4 H Est GFR (CKD-EPI)AfAm 63.29 Est GFR (CKD-EPI)NonAf 54.60 POC Glucometer 246 Random Glucose 219 H Calcium 8.9 Phosphorus 3.6 Magnesium 2.4 Total Bilirubin 1.1 H AST 12 L ALT 26 Alkaline Phosphatase 104 Total Protein 7.0 Albumin 3.0 L Urine Color Urine Appearance Urine pH Ur Specific [place] Urine Protein Urine Glucose (UA) Urine Ketones Urine Blood Urine Nitrite Urine Bilirubin Urine Urobilinogen Ur Leukocyte Esterase Urine WBC (Auto) Urine RBC (Auto) Urine Casts (Auto) U Pathogenic Cast Auto U Epithel Cells (Auto) U Sm Round Cell (Auto) Urine Crystals (Auto) Urine Bacteria (Auto) Urine Yeast (Auto) Ur Random Creatinine Ur Random Sodium Ur Random Potassium Ur Random Chloride Random Vancomycin COVID-19 (RONA) Active Medications Generic Name Dose Route Start Last Admin Trade Name Freq PRN Reason Stop Dose Admin Acetaminophen 1,000 mg 04/27/20 16:30 Ofirmev Injection - IVPB Q6H PRN PAIN LEVEL 1-5 Atorvastatin Calcium 40 mg 04/27/20 22:00 04/27/20 23:11 Lipitor - PO 40 mg HS CHIP Administration Famotidine 20 mg 04/27/20 22:00 04/27/20 23:11 Pepcid - PO 20 mg BID CHIP Administration Heparin Sodium (Porcine) 5,000 unit 04/27/20 22:00 04/28/20 06:41 Heparin - SQ 5,000 unit TID CHIP Administration Piperacillin Sod/Tazobactam 100 mls @ 200 mls/hr 04/27/20 15:00 Sod 4.5 gm/ Dextrose IVPB Q8H-IV CHIP Protocol Vancomycin HCl 1,500 mg/ 250 mls @ 125 mls/hr 04/27/20 22:00 Dextrose IVPB Q12H CHIP Protocol Piperacillin Sod/Tazobactam 100 mls @ 200 mls/hr 04/27/20 15:00 04/28/20 06:42 Sod 4.5 gm/ Dextrose IVPB 04/28/20 14:59 200 mls/hr Q8H CHIP Administration Protocol Vancomycin HCl 1,500 mg/ 500 mls @ 250 mls/hr 04/27/20 22:00 04/27/20 23:11 Dextrose IVPB 04/28/20 11:59 250 mls/hr Q12H CHIP Administration Protocol Sodium Chloride 1,000 mls @ 125 mls/hr 04/27/20 15:45 04/27/20 17:17 Normal Saline - IV 125 mls/hr ASDIR CHIP Administration Insulin Aspart 1 vial 04/27/20 16:30 04/28/20 08:47 Novolog Vial Sliding Scale - SQ 4 units ACHS CHIP Administration Protocol Insulin Detemir 15 units 04/27/20 22:00 04/28/20 06:46 Levemir Vial SQ 15 unit BID@0700,2200 CHIP Administration ASSESSMENT/PLAN: Patient is a 59 year old male with history of hypertension, hyperlipidemia, diabetes mellitus, Afib, coronary artery disease presents with complaint of left lower extremity pain. Impression TAMARA Hypertension Cellulitis Hyperlipidemia, Diabetes mellitus, Afib Coronary artery disease Pseudohyponatremia Plan TAMARA likely pre -renal disease given response to IV fluid hydration. Sodium is within normal limits when corrected for hyperglycmia. Continue hydration with normal saline Obtain urinalysis, urine electrolytes. Calculate FeNa Monitor intake, output Renally dose antibiotics, medications Avoid nephrotoxic agents Disposition: We will continue to follow the patient. Thank you for this consultative opportunity. Visit type - Emergency Visit Emergency Visit: Yes ED Registration Date: 04/27/20 Care time: The patient presented to the Emergency Department on the above date and was hospitalized for further evaluation of their emergent condition. - New Patient This patient is new to me today: Yes Date on this admission: 04/28/20 - Critical Care Critical Care patient: No ATTENDING PHYSICIAN STATEMENT I saw and evaluated the patient. I reviewed the resident's note and discussed the case with the resident. I agree with the resident's findings and plan as documented. SUBJECTIVE: OBJECTIVE: ASSESSMENT AND PLAN:
--- NOTE | 2020-04-28 13:01 | CONSULT ---
Consult - text type - Consultation Consultation Note: Podiatry Consultation: 59 year old poorly controlled diabetic male presents with left midfoot swelling and redness. Patient endorses a history of trauma approximately 4 days ago. He notes progressive swelling/redness to the foot. He eloped from the ED prior. D enies F/V/N/C/SOB/CP. Patient is agitated and feels that "no one is doing anything for him". Currently afebrile, VSS. Came in to ED with blood sugars in the 500s. PMHX: HTN, DM, a-fib (unknown AC status), CAD, GERD, and DJD, polysubstance abuse Meds: noted ALL: morphine MEGAN: L foot: Pedal pulses weakly palpable, TG warm-warm, CFT brisk to all digits. There are no ischemic changes to the foot. There is fluctuance noted dorsal midfoot, (+) erythema, (+) purulent drainage, no soft tissue crepitus. Minimal tenderness to palpation. Ascending cellulitis to the midfoot. Blood Cx: pending Imp: 59 year old poorly controlled diabetic male with left foot abscess cellulitis 1. IV abx, ID consultation 2. Needs xray, MRI left foot 3. Plan for incision and drainage tomorrow morning in OR 4. NPO after midnight 5. Will follow. Thank you for the courtesy of this consultation
--- NOTE | 2020-04-28 13:53 | PN ---
Teaching Attending Note Name of Resident: Jamar Robbins (Nephrology) ATTENDING PHYSICIAN STATEMENT I saw and evaluated the patient. I reviewed the resident's note and discussed the case with the resident. I agree with the resident's findings and plan as documented. Renal Pt is a 59 year old male with pmhx of htn, dm, a-fib, cad, gerd with left foot pain and erythema. He was fount to have elevated daycare director and I was called to evaluate him. pmhx htn dm a-fib cad allergies morphine ros neg Current Medications Generic Name Dose Route Start Last Admin Trade Name Freq PRN Reason Stop Dose Admin Acetaminophen 1,000 mg 04/27/20 16:30 Ofirmev Injection - IVPB Q6H PRN PAIN LEVEL 1-5 Atorvastatin Calcium 40 mg 04/27/20 22:00 04/27/20 23:11 Lipitor - PO 40 mg HS CHIP Administration Famotidine 20 mg 04/27/20 22:00 04/27/20 23:11 Pepcid - PO 20 mg BID CHIP Administration Heparin Sodium (Porcine) 5,000 unit 04/27/20 22:00 04/28/20 06:41 Heparin - SQ 5,000 unit TID CHIP Administration Piperacillin Sod/Tazobactam 100 mls @ 200 mls/hr 04/27/20 15:00 Sod 4.5 gm/ Dextrose IVPB Q8H-IV CHIP Protocol Vancomycin HCl 1,500 mg/ 250 mls @ 125 mls/hr 04/27/20 22:00 Dextrose IVPB Q12H CHIP Protocol Piperacillin Sod/Tazobactam 100 mls @ 200 mls/hr 04/27/20 15:00 04/28/20 06:42 Sod 4.5 gm/ Dextrose IVPB 04/28/20 14:59 200 mls/hr Q8H CHIP Administration Protocol Sodium Chloride 1,000 mls @ 125 mls/hr 04/27/20 15:45 04/27/20 17:17 Normal Saline - IV 125 mls/hr ASDIR CHIP Administration Insulin Aspart 1 vial 04/27/20 16:30 04/28/20 08:47 Novolog Vial Sliding Scale - SQ 4 units ACHS CHIP Administration Protocol Insulin Detemir 15 units 04/27/20 22:00 04/28/20 06:46 Levemir Vial SQ 15 unit BID@0700,2200 CHIP Administration Laboratory Tests 04/27/20 04/28/20 14:20 07:20 Sodium 134 L Potassium 4.4 Creatinine 1.9 H 1.4 H Random Glucose 219 H Last Vital Signs Temp Pulse Resp BP Pulse Ox 98.2 F 99 H 17 115/85 98 04/27/20 22:00 04/28/20 06:01 04/28/20 06:01 04/28/20 06:01 04/28/20 06:01 Impression: TAMARA Hypertension Cellulitis Hyperlipidemia, Diabetes mellitus, Afib Coronary artery disease Pseudohyponatremia Plan - cont to monitor renal function - abx per medicine - ID eval - rounded at bedside with resident - re-order ua as they were cancelled
--- NOTE | 2020-04-28 15:34 | CONSULT ---
- Consultation REQUESTING PROVIDER: CONSULT REQUEST: We have been asked to surgically evaluate this patient for Left foot abscess Hospitalist:Seema Black NP HISTORY OF PRESENT ILLNESS: 59yo M admitted for Left foot abscess that developed 3 days ago. Pt is very beligerent during interview so questioning and exam was limited. Pt admits to smoking but refused to state how much. Pt denies vascular disease. Pt stopped answering questions and just demanded that his foot should be fixed. Pt was seen earlier by Dr. Barron (podiatry) who plans to take pt to the OR tomorrow for I&D. PMHx: DM, HTN, HLD, GERD Home Medications Medication Instructions Recorded Amlodipine Besylate [Norvasc -] 5 mg PO DAILY 04/26/20 Atorvastatin Calcium 40 mg PO HS 04/26/20 Carvedilol [Coreg -] 25 mg PO BID 04/26/20 Famotidine [Pepcid] 20 mg PO BID 04/26/20 Hydrochlorothiazide 12.5 mg PO DAILY 04/26/20 Losartan Potassium 100 mg PO DAILY 04/26/20 Metformin HCl [Glucophage] 500 mg PO BID 04/26/20 Allergies Allergy/AdvReac Type Severity Reaction Status Date / Time morphine Allergy Severe Rash;ITCHIN Verified 03/16/18 09:27 G PHYSICAL EXAM: GENERAL: Awake, alert, and fully oriented, in no acute distress. HEAD: Normal with no signs of trauma. LOWER EXTREMITIES: 2+ PT pulses, warm, well-perfused. No calf tenderness. Swelling and erythema dorsum foot with bryan pus (exam limited due to noncompliance from pt. NEUROLOGICAL: Normal speech, gait not observed. PSYCH: Combative, belligerent, Good eye contact. Vital Signs Temperature 98.2 F 04/27/20 22:00 Pulse Rate 99 H 04/28/20 06:01 Respiratory Rate 17 04/28/20 06:01 Blood Pressure 115/85 04/28/20 06:01 O2 Sat by Pulse Oximetry (%) 98 04/28/20 06:01 Lab Results WBC 7.5 K/mm3 (4.0-10.0) 04/28/20 07:20 RBC 5.01 M/mm3 (4.00-5.60) 04/28/20 07:20 Hgb 15.2 GM/dL (11.7-16.9) 04/28/20 07:20 Hct 45.5 % (35.4-49) 04/28/20 07:20 MCV 90.8 fl (80-96) 04/28/20 07:20 MCHC 33.4 g/dl (32.0-35.9) 04/28/20 07:20 RDW 13.7 % (11.9-15.9) 04/28/20 07:20 Plt Count 258 K/MM3 (134-434) 04/28/20 07:20 Sodium 134 mmol/L (136-145) L 04/28/20 07:20 Potassium 4.4 mmol/L (3.5-5.1) 04/28/20 07:20 Chloride 100 mmol/L (98-107) 04/28/20 07:20 Carbon Dioxide 27 mmol/L (21-32) 04/28/20 07:20 Anion Gap 7 MMOL/L (8-16) L 04/28/20 07:20 BUN 17.5 mg/dL (7-18) 04/28/20 07:20 Creatinine 1.4 mg/dL (0.55-1.3) H 04/28/20 07:20 Random Glucose 219 mg/dL (74-106) H 04/28/20 07:20 Calcium 8.9 mg/dL (8.5-10.1) 04/28/20 07:20 Problem List - Problems (1) Cellulitis and abscess of foot Assessment/Plan: Plan -evaluation and exam was limited due to pt being belligerent, although it does not appear that pt has any vascular issues so is cleared from vascular standpoint for surgery with podiatry tomorrow. -wound care per podiatry -abx per Med/ID Pt discussed with Dr. Linares who agrees with plan Code(s): L03.119 - CELLULITIS OF UNSPECIFIED PART OF LIMB; L02.619 - CUTANEOUS ABSCESS OF UNSPECIFIED FOOT
[2020-04-28] MEDS ORDERED: FAMOTIDINE 20 MG TABLET ONE ×2 (18:28→22:34)
[2020-04-28] MEDS ORDERED: VANCOMYCIN 500 MG VIAL (RESTRICTED TO ID ONLY) ONE (18:28)
[2020-04-28] MEDS ORDERED: ACETAMINOPHEN INJECTION 100 ML IVPB ONE (18:52)
[2020-04-28] MEDS: SODIUM CHLORIDE 1,000 ML IV SCH (18:57)
[2020-04-28 20:06] LABS: PH,URINE 5.5 (5.0-8.0); URINE APPEARANCE CLEAR; URINE BILIRUBIN NEGATIVE (NEGATIVE); URINE COLOR YELLOW; URINE GLUCOSE (UA) 3+ (NEGATIVE); URINE KETONE NEGATIVE (NEGATIVE); URINE LEUK ESTERASE NEGATIVE (NEGATIVE); URINE NITRITE NEGATIVE (NEGATIVE); URINE PROTEIN TRACE (NEGATIVE); URINE UROBILINOGEN 0.2 mg/dL (0.2-1.0)
[2020-04-28] MEDS ORDERED: HYDROmorphone HCL CARPU-JECT 2 MG/1 ML DISP.SYRIN IVPB ONE (20:50)
[2020-04-28] MEDS ORDERED: HYDROmorphone HCL CARPU-JECT 2 MG/1 ML DISP.SYRIN IVPB PRN (20:50)
[2020-04-28] MEDS ORDERED: HYDROmorphone HCl 2 MG/ML VIAL ONE (21:01)
[2020-04-28] MEDS ORDERED: CARVEDILOL 12.5 MG TABLET (FP) PO SCH (22:00)
[2020-04-28] MEDS ORDERED: CARVEDILOL 12.5 MG TABLET (FP) ONE (22:34)
[2020-04-28] MEDS ORDERED: PIPERACILLIN/TAZOB 3.375 GM 3.375 GM/50 ML BAG IVPB ONE (22:35)
[2020-04-28] MEDS ORDERED: ATORVASTATIN CA 40 MG TABLET (FP) ONE (22:35)
[2020-04-28] MEDS ORDERED: INSULIN (LEVEMIR) 100 UNITS/ML UNITS SQ ONE (22:36)
[2020-04-28] MEDS: CARVEDILOL 25 MG TABLET (FP) PO SCH (22:54)
[2020-04-28] MEDS: PIPERACILLIN/TAZOB 3.375 GM 3.375 GM in DEXTROSE 5%-WATER - 50 ML IVPB SCH (22:54)
[2020-04-28] MEDS: ATORVASTATIN CA 40 MG TABLET (FP) PO SCH (22:54)
[2020-04-29 02:25] VITALS: BMI 33.8
[2020-04-29] MEDS ORDERED: DEXTROSE 5%-WATER - 50 ML IVPB ONE ×2 (02:42→09:11)
[2020-04-29] MEDS ORDERED: PIPERACILLIN/TAZOBACTAM 3.375 GM VIAL IVPB ONE ×2 (02:42→09:11)
[2020-04-29] MEDS: PIPERACILLIN/TAZOB 3.375 GM 3.375 GM in DEXTROSE 5%-WATER - 50 ML IVPB SCH ×3 (03:00→18:19)
[2020-04-29] MEDS: INSULIN (LEVEMIR) 100 UNITS/ML UNITS SQ SCH ×2 (06:05→21:40)
[2020-04-29] MEDS: INSULIN SLIDING SCALE (NOVOLOG) 1 VIAL SQ SCH ×4 (06:05→21:41)
[2020-04-29] MEDS: HEPARIN NA (PORCINE) 5,000 UNITS/ML 1ML VIAL SQ SCH ×3 (06:05→21:40)
[2020-04-29] MEDS: SODIUM CHLORIDE 1,000 ML IV SCH ×3 (09:14→16:26)
[2020-04-29] MEDS: CARVEDILOL 25 MG TABLET (FP) PO SCH ×2 (09:14→21:39)
[2020-04-29] MEDS: FAMOTIDINE 20 MG TABLET PO SCH ×2 (09:14→21:40)
[2020-04-29] MEDS ORDERED: PROPOFOL 20 ML ONE (10:14)
[2020-04-29] MEDS ORDERED: MIDAZOLAM HCL 2 MG/2 ML SINGLE DOSE VIAL ONE (10:15)
[2020-04-29] MEDS ORDERED: DESFLURANE GAS 240 ML BOTTLE IH ONE (10:32)
[2020-04-29] MEDS ORDERED: LIDOCAINE HCL 2% (20ML MULTI-DOSE VIAL) ONE (10:47)
--- NOTE | 2020-04-29 11:06 | PN ---
Physical Exam: SUBJECTIVE: Patient seen and examined OBJECTIVE: Patient is a 59 year old male with a significant past medical history of HTN, DM, CAD, GERD, and DJD c/o LLE pain and swelling after trauma while in the swimming pool. He reports that he was attempting to get out of a swimming pool and he stepped into surrounding foliage. He states that he did not remember breaking skin or bleeding. He did not take any medication or attempt treatment at home. Over the course of the subsequent 2 days, his foot began to swell and become red, which prompted him to come to the hospital on 04/26. He was given abx and then eloped. He returned 04/28 due to worsening pain. patient for a wound washout today Vital Signs Period Temp Pulse Resp BP Sys/Bello Pulse Ox Last 24 Hr 97.8 F-99 F 77-95 18-19 111-135/58-84 97-98 GENERAL: The patient is awake, alert, and fully oriented, angry and agitated. HEAD: Normal with no signs of trauma. EYES: PERRL, extraocular movements intact, sclera anicteric, conjunctiva clear. No ptosis. ENT: Ears normal, nares patent NECK: Trachea midline, full range of motion, supple. LUNGS: Breath sounds clear to auscultation anteriorly HEART: Regular rate and rhythm ABDOMEN: Soft, nontender, nondistended, normoactive bowel sounds EXTREMITIES: edema of left foot, anterior aspect of foot with drainage, erythema, open abscess in LLE with sero sang drainage NEUROLOGICAL: Normal speech, gait not observed. Laboratory Results - last 24 hr 04/27/20 04/28/20 04/28/20 14:20 18:22 19:11 POC Glucometer 257 Hemoglobin A1c % 13.9 H Urine Color Yellow Urine Appearance Clear Urine pH 5.5 Ur Specific [place] 1.021 Urine Protein Trace Urine Glucose (UA) 3+ H Urine Ketones Negative Urine Blood Negative Urine Nitrite Negative Urine Bilirubin Negative Urine Urobilinogen 0.2 Ur Leukocyte Esterase Negative Ur Random Creatinine Ur Random Sodium Ur Random Potassium Ur Random Chloride 04/28/20 04/28/20 04/29/20 19:11 22:30 06:02 POC Glucometer 323 202 Hemoglobin A1c % Urine Color Urine Appearance Urine pH Ur Specific [place] Urine Protein Urine Glucose (UA) Urine Ketones Urine Blood Urine Nitrite Urine Bilirubin Urine Urobilinogen Ur Leukocyte Esterase Ur Random Creatinine 84.0 Ur Random Sodium 43 Ur Random Potassium 15.0 L Ur Random Chloride 35 L Active Medications Generic Name Dose Route Start Last Admin Trade Name Freq PRN Reason Stop Dose Admin Acetaminophen 1,000 mg 04/27/20 16:30 04/28/20 19:00 Ofirmev Injection - IVPB 1,000 mg Q6H PRN Administration PAIN LEVEL 1-5 Atorvastatin Calcium 40 mg 04/27/20 22:00 04/28/20 22:54 Lipitor - PO 40 mg HS CHIP Administration Carvedilol 25 mg 04/28/20 22:00 04/29/20 09:14 Coreg - PO Not Given BID CHIP Famotidine 20 mg 04/27/20 22:00 04/29/20 09:14 Pepcid - PO Not Given BID CHIP Heparin Sodium (Porcine) 5,000 unit 04/27/20 22:00 04/29/20 06:05 Heparin - SQ 5,000 unit TID CHIP Administration Sodium Chloride 1,000 mls @ 125 mls/hr 04/27/20 15:45 04/29/20 09:14 Normal Saline - IV 125 mls/hr ASDIR CHIP Administration Piperacillin Sod/Tazobactam 50 mls @ 100 mls/hr 04/28/20 22:15 04/29/20 09:13 Sod 3.375 gm/ Dextrose IVPB 100 mls/hr Q8H-IV CHIP Administration Insulin Aspart 1 vial 04/28/20 17:05 04/29/20 06:05 Novolog Vial Sliding Scale - SQ 6 units ACHS CHIP Administration Protocol Insulin Detemir 15 units 04/27/20 22:00 04/29/20 06:05 Levemir Vial SQ 15 unit BID@0700,2200 CHIP Administration ASSESSMENT/PLAN: Problem List - Problems (1) Cellulitis and abscess of foot Assessment/Plan: podiatry plans to take pt to the OR today for I&D. left foot xray 04/26: edema of foot, no acute fracture, questionable air in the soft tissue on zosyn and vanco per ID Code(s): L03.119 - CELLULITIS OF UNSPECIFIED PART OF LIMB; L02.619 - CUTANEOUS ABSCESS OF UNSPECIFIED FOOT (2) Hyperlipidemia Code(s): E78.5 - HYPERLIPIDEMIA, UNSPECIFIED Qualifiers: Hyperlipidemia type: pure hypercholesterolemia Qualified Code(s): E78.00 - Pure hypercholesterolemia, unspecified; E78.0 - Pure hypercholesterolemia (3) [id number]-[id number] kidney injury Assessment/Plan: renal dose medications. monitor Rosio with daily labs Code(s): N17.9 - ACUTE KIDNEY FAILURE, UNSPECIFIED; N18.9 - CHRONIC KIDNEY DISEASE, UNSPECIFIED Qualifiers: Chronic kidney disease stage: stage 2 (mild) (4) Paroxysmal atrial fibrillation Assessment/Plan: rate controlled on metoprolol not on a/c, unclear as to why, attempted to discuss with patient but he became angry and belligerent Code(s): I48.0 - PAROXYSMAL ATRIAL FIBRILLATION (5) HTN (hypertension) Assessment/Plan: bp on the lower end, will hold norvasc 5, continue coreq bid losartan and hctz on hold for rosio Code(s): I10 - ESSENTIAL (PRIMARY) HYPERTENSION Qualifiers: Hypertension type: essential hypertension Qualified Code(s): I10 - Essential (primary) hypertension (6) Foot abscess, left Assessment/Plan: left foot abscess that developed 3 days ago. podiatry plans to take pt to the OR tomorrow for I&D. left foot xray 04/26: edema of foot, no acute fracture, questionable air in the soft tissue Code(s): L02.612 - CUTANEOUS ABSCESS OF LEFT FOOT (7) Diabetes Assessment/Plan: diabetes uncontrolled. a1c 13.9 on levemir bid Code(s): E11.9 - TYPE 2 DIABETES MELLITUS WITHOUT COMPLICATIONS (8) DVT prophylaxis Assessment/Plan: on heparin Code(s): Z29.9 - ENCOUNTER FOR PROPHYLACTIC MEASURES, UNSPECIFIED Visit type - Emergency Visit Emergency Visit: Yes ED Registration Date: 04/27/20 Care time: The patient presented to the Emergency Department on the above date and was hospitalized for further evaluation of their emergent condition. - New Patient This patient is new to me today: No - Critical Care Critical Care patient: No - Discharge Referral Referred to [facility] Med P.C.: Yes
--- NOTE | 2020-04-29 11:24 | PN ---
Progress Note (short form) - Note Progress Note: 59 y/o male seen and evaluted in pre op holding for left foot I and D today; after complete explanation of risks and benefits the consent was signed NPO was verified with the patient per nursing patient is refusing abx on the floor; we discussed and patient just nodded head in agreement to start taking discussed w/o them can develop further, worsening infections to the OR.
[2020-04-29] MEDS ORDERED: LIDOCAINE HCL 2% (50ML VIAL) NR ONE (11:42)
[2020-04-29] MEDS ORDERED: BACITRACIN 50,000 UNITS VIAL NR ONE (11:47)
[2020-04-29] MEDS ORDERED: PROTAMINE SULFATE 50 MG/5 ML VIAL ONE (11:55)
--- NOTE | 2020-04-29 11:59 | OP ---
Operative Note - Note: Operative Date: 04/29/20 Pre-Operative Diagnosis: Left foot abscess Operation: Left foot incison and drainage. Findings: see dictation Post-Operative Diagnosis: Same as Pre-op Surgeon: Fercho Banks Anesthesia: Local, MAC Specimens Removed: wound culture Estimated Blood Loss (mls): 5 Operative Report Dictated: No
[2020-04-29] MEDS ORDERED: ACETAMINOPHEN 1000 MG/100 ML VIAL (NON FORMULARY) IVPB PRN (12:09)
[2020-04-29] MEDS ORDERED: LABETALOL HCL 5 MG/1 ML (100MG/20 ML VIAL) IVPUSH ONE (12:11)
[2020-04-29] MEDS ORDERED: ONDANSETRON 4 MG/2 ML VIAL IVPUSH PRN (12:11)
[2020-04-29] MEDS ORDERED: ACETAMINOPHEN 1000 MG/100 ML VIAL (NON FORMULARY) IVPB ONE (13:45)
[2020-04-29] MEDS ORDERED: oxyCODONE HCL 5 MG TABLET PO PRN (13:54)
--- NOTE | 2020-04-29 14:46 | CON.ID ---
Consult Consult Specialty:: infectious diseases Referred by:: hospitalist Reason for Consultation:: leg swelling and abscess - History of Present Illness Chief Complaint: pain and swelling of the leg History of Present Illness: 59 y/o male with HTN, DM, a-fib (unknown AC status), CAD, GERD, and DJD c/o LLE pain and swelling after trauma. He reports that he was attempting to get out of a swimming pool and he stepped into surrounding foliage. He states that he did not remember breaking skin or bleeding. He did not take any medication or attempt treatment at home. Over the course of the subsequent 2 days, his foot began to swell and become red, which prompted him to come to the hospital yesterday. He was given abx and then eloped. He returned back due to worsening pain. - History Source History Provided By: Patient, Medical Record Limitations to Obtaining History: No Limitations - Past Medical History Cardio/Vascular: Yes: HTN Renal/: Yes: Renal Inusuff Psych: Yes: Depression - Past Surgical History Past Surgical History: Yes: Joint Replacement (left knee, right shoulder repair) - Alcohol/Substance Use Hx Alcohol Use: Yes (social) History of Substance Use: reports: Prescription (adderall, oxycodone) - Smoking History Smoking history: Unknown if ever smoked Have you smoked in the past 12 months: Yes Aproximately how many cigarettes per day: 2 - Social History Usual Living Arrangement: Alone Home Medications - Allergies Allergies/Adverse Reactions: Allergies Allergy/AdvReac Type Severity Reaction Status Date / Time morphine Allergy Severe Rash;ITCHIN Verified 03/16/18 09:27 G - Home Medications Home Medications: Ambulatory Orders Amlodipine Besylate [Norvasc -] 5 mg PO DAILY 04/26/20 Atorvastatin Calcium 40 mg PO HS 04/26/20 Carvedilol [Coreg -] 25 mg PO BID 04/26/20 Famotidine [Pepcid] 20 mg PO BID 04/26/20 Hydrochlorothiazide 12.5 mg PO DAILY 04/26/20 Losartan Potassium 100 mg PO DAILY 04/26/20 Metformin HCl [Glucophage] 500 mg PO BID 04/26/20 Review of Systems - Review of Systems Constitutional: reports: No Symptoms Eyes: reports: No Symptoms HENT: reports: No Symptoms Neck: reports: No Symptoms Cardiovascular: reports: No Symptoms Respiratory: reports: No Symptoms Gastrointestinal: reports: No Symptoms Genitourinary: reports: No Symptoms Musculoskeletal: reports: Other (eft dorsal surface of foot erythematous with pinpoint area of purulent drainage.) Integumentary: reports: Other (eft dorsal surface of foot erythematous with pinpoint area of purulent drainage.) Hematology/Lymphatic: reports: No Symptoms Psychiatric: reports: No Symptoms Physical Exam Vital Signs: Vital Signs Temperature 98.0 F 04/29/20 12:45 Pulse Rate 78 04/29/20 12:45 Respiratory Rate 16 04/29/20 12:45 Blood Pressure 150/87 04/29/20 12:45 O2 Sat by Pulse Oximetry (%) 98 04/29/20 12:45 Constitutional: Yes: Calm, Mild Distress Eyes: Yes: Conjunctiva Clear HENT: Yes: Atraumatic, Normocephalic Neck: Yes: Supple, Trachea Midline Cardiovascular: Yes: Regular Rate and Rhythm Respiratory: Yes: Regular, CTA Bilaterally Gastrointestinal: Yes: Normal Bowel Sounds, Soft Musculoskeletal: Yes: WNL Extremities: Yes: Other (eft dorsal surface of foot erythematous with pinpoint area of purulent drainage.) Wound/Incision: Yes: Other Neurological: Yes: Alert, Oriented Psychiatric: Yes: Alert, Oriented Labs: CBC, BMP 04/28/20 07:20 04/28/20 07:20 Assessment/Plan Problem List - Problems (1) Cellulitis and abscess of foot Code(s): L03.119 - CELLULITIS OF UNSPECIFIED PART OF LIMB; L02.619 - CUTANEOUS ABSCESS OF UNSPECIFIED FOOT (2) Hyperlipidemia Code(s): E78.5 - HYPERLIPIDEMIA, UNSPECIFIED Qualifiers: Hyperlipidemia type: pure hypercholesterolemia Qualified Code(s): E78.00 - Pure hypercholesterolemia, unspecified; E78.0 - Pure hypercholesterolemia (3) [id number] kidney injury Code(s): N17.9 - ACUTE KIDNEY FAILURE, UNSPECIFIED; N18.9 - CHRONIC KIDNEY DISEASE, UNSPECIFIED Qualifiers: Chronic kidney disease stage: stage 2 (mild) (4) Paroxysmal atrial fibrillation Code(s): I48.0 - PAROXYSMAL ATRIAL FIBRILLATION (5) HTN (hypertension) Code(s): I10 - ESSENTIAL (PRIMARY) HYPERTENSION Qualifiers: Hypertension type: essential hypertension Qualified Code(s): I10 - Essential (primary) hypertension (6) Foot abscess, left Assessment/Plan: Code(s): L02.612 - CUTANEOUS ABSCESS OF LEFT FOOT (7) Diabetes Code(s): E11.9 - TYPE 2 DIABETES MELLITUS WITHOUT COMPLICATIONS plan will start patient on abx will need drainage podiatry rest as per the team patient received florencia
--- NOTE | 2020-04-29 14:52 | PN ---
Progress Note, Physician History of Present Illness: s/p i and of the abscess comfortable sleeping was aggressive and fighting wiht the nursing staff cx results noted - Current Medication List Current Medications: Active Medications Acetaminophen (Ofirmev Injection -) 1,000 mg IVPB Q6H PRN PRN Reason: PAIN LEVEL 1-5 Atorvastatin Calcium (Lipitor -) 40 mg PO HS [facility]IP Carvedilol (Coreg -) 25 mg PO BID [facility] Famotidine (Pepcid -) 20 mg PO BID [facility] Heparin Sodium (Porcine) (Heparin -) 5,000 unit SQ TID [facility] Last Admin: 04/29/20 14:22 Dose: Not Given Documented by: Piperacillin Sod/Tazobactam (Sod 3.375 gm/ Dextrose) 50 mls @ 100 mls/hr IVPB Q8H-IV [facility] Sodium Chloride (Normal Saline -) 1,000 mls @ 125 mls/hr IV ASDIR [facility] Last Admin: 04/29/20 14:21 Dose: Not Given Documented by: Insulin Aspart (Novolog Vial Sliding Scale -) 1 vial SQ ACHS [facility]; Protocol Insulin Detemir (Levemir Vial) 15 units SQ BID@0700,2200 [facility] Ondansetron HCl (Zofran Injection) 4 mg IVPUSH Q6H PRN PRN Reason: NAUSEA AND/OR VOMITING Oxycodone HCl (Roxicodone -) 10 mg PO Q6H PRN PRN Reason: PAIN LEVEL 7 - 10 Oxycodone HCl (Roxicodone -) 5 mg PO Q6H PRN PRN Reason: PAIN LEVEL 4 - 6 - Objective Vital Signs: Vital Signs Temperature 98.6 F 04/29/20 14:47 Pulse Rate 91 H 04/29/20 14:47 Respiratory Rate 18 04/29/20 14:47 Blood Pressure 129/68 04/29/20 14:47 O2 Sat by Pulse Oximetry (%) 97 04/29/20 14:47 Constitutional: Yes: Other (agressive,uncooperative) Cardiovascular: Yes: S1, S2 Respiratory: Yes: Regular, CTA Bilaterally Gastrointestinal: Yes: Normal Bowel Sounds, Soft Musculoskeletal: Yes: WNL Extremities: Yes: Other Integumentary: Yes: Other Wound/Incision: Yes: Dressing Dry and Intact Neurological: Yes: Alert, Oriented Psychiatric: Yes: Alert, Oriented Labs: CBC, BMP 04/28/20 07:20 04/28/20 07:20 Assessment/Plan Problem List - Problems (1) Cellulitis and abscess of foot Code(s): L03.119 - CELLULITIS OF UNSPECIFIED PART OF LIMB; L02.619 - CUTANEOUS ABSCESS OF UNSPECIFIED FOOT (2) Hyperlipidemia Code(s): E78.5 - HYPERLIPIDEMIA, UNSPECIFIED Qualifiers: Hyperlipidemia type: pure hypercholesterolemia Qualified Code(s): E78.00 - Pure hypercholesterolemia, unspecified; E78.0 - Pure hypercholesterolemia (3) [id number] kidney injury Code(s): N17.9 - ACUTE KIDNEY FAILURE, UNSPECIFIED; N18.9 - CHRONIC KIDNEY DISEASE, UNSPECIFIED Qualifiers: Chronic kidney disease stage: stage 2 (mild) (4) Paroxysmal atrial fibrillation Code(s): I48.0 - PAROXYSMAL ATRIAL FIBRILLATION (5) HTN (hypertension) Code(s): I10 - ESSENTIAL (PRIMARY) HYPERTENSION Qualifiers: Hypertension type: essential hypertension Qualified Code(s): I10 - Essential (primary) hypertension (6) Foot abscess, left Assessment/Plan: Code(s): L02.612 - CUTANEOUS ABSCESS OF LEFT FOOT (7) Diabetes Code(s): E11.9 - TYPE 2 DIABETES MELLITUS WITHOUT COMPLICATIONS plan continue abx once we have cx and sensitivities and podiatey input will see about abx further
--- NOTE | 2020-04-29 15:55 | PN ---
Progress Note, Physician History of Present Illness: Pt seen and examined at bedside. He denies shortness of breath. - Current Medication List Current Medications: Active Medications Acetaminophen (Ofirmev Injection -) 1,000 mg IVPB Q6H PRN PRN Reason: PAIN LEVEL 1-5 Atorvastatin Calcium (Lipitor -) 40 mg PO HS [facility]IP Carvedilol (Coreg -) 25 mg PO BID [facility] Famotidine (Pepcid -) 20 mg PO BID [facility] Heparin Sodium (Porcine) (Heparin -) 5,000 unit SQ TID [facility] Last Admin: 04/29/20 14:22 Dose: Not Given Documented by: Piperacillin Sod/Tazobactam (Sod 3.375 gm/ Dextrose) 50 mls @ 100 mls/hr IVPB Q8H-IV [facility] Sodium Chloride (Normal Saline -) 1,000 mls @ 125 mls/hr IV ASDIR [facility] Last Admin: 04/29/20 14:21 Dose: Not Given Documented by: Insulin Aspart (Novolog Vial Sliding Scale -) 1 vial SQ ACHS [facility]; Protocol Insulin Detemir (Levemir Vial) 15 units SQ BID@0700,2200 [facility] Ondansetron HCl (Zofran Injection) 4 mg IVPUSH Q6H PRN PRN Reason: NAUSEA AND/OR VOMITING Oxycodone HCl (Roxicodone -) 10 mg PO Q6H PRN PRN Reason: PAIN LEVEL 7 - 10 Oxycodone HCl (Roxicodone -) 5 mg PO Q6H PRN PRN Reason: PAIN LEVEL 4 - 6 - Objective Vital Signs: Vital Signs Temperature 98.6 F 04/29/20 14:47 Pulse Rate 91 H 04/29/20 14:47 Respiratory Rate 18 04/29/20 14:47 Blood Pressure 129/68 04/29/20 14:47 O2 Sat by Pulse Oximetry (%) 97 04/29/20 14:47 Constitutional: Yes: Calm Eyes: Yes: Conjunctiva Clear HENT: Yes: Atraumatic Neck: Yes: Supple Cardiovascular: Yes: S1, S2 Respiratory: Yes: CTA Bilaterally Gastrointestinal: Yes: Soft Genitourinary: Yes: WNL Musculoskeletal: Yes: WNL Edema: No Wound/Incision: Yes: Dressing Dry and Intact Neurological: Yes: Oriented Psychiatric: Yes: Oriented Labs: CBC, BMP 04/28/20 07:20 04/28/20 07:20 Assessment/Plan Current Medications Generic Name Dose Route Start Last Admin Trade Name Freq PRN Reason Stop Dose Admin Acetaminophen 1,000 mg 04/29/20 12:09 Ofirmev Injection - IVPB Q6H PRN PAIN LEVEL 1-5 Atorvastatin Calcium 40 mg 04/29/20 22:00 Lipitor - PO HS [facility]IP Carvedilol 25 mg 04/29/20 22:00 Coreg - PO BID [facility] Famotidine 20 mg 04/29/20 22:00 Pepcid - PO BID [facility] Heparin Sodium (Porcine) 5,000 unit 04/29/20 14:00 04/29/20 14:22 Heparin - SQ Not Given TID [facility] Piperacillin Sod/Tazobactam 50 mls @ 100 mls/hr 04/29/20 18:00 Sod 3.375 gm/ Dextrose IVPB Q8H-IV CHIP Sodium Chloride 1,000 mls @ 125 mls/hr 04/29/20 12:09 04/29/20 14:21 Normal Saline - IV Not Given ASDIR [facility] Insulin Aspart 1 vial 04/29/20 16:30 Novolog Vial Sliding Scale - SQ ACHS [facility] Protocol Insulin Detemir 15 units 04/29/20 22:00 Levemir Vial SQ BID@0700,2200 [facility] Ondansetron HCl 4 mg 04/29/20 12:11 Zofran Injection IVPUSH Q6H PRN NAUSEA AND/OR VOMITING Oxycodone HCl 10 mg 04/29/20 13:52 Roxicodone - PO Q6H PRN PAIN LEVEL 7 - 10 Oxycodone HCl 5 mg 04/29/20 13:54 Roxicodone - PO Q6H PRN PAIN LEVEL 4 - 6 Impression: TAMARA Hypertension Cellulitis Hyperlipidemia, Diabetes mellitus, Afib Coronary artery disease Pseudohyponatremia Plan - check cmp - renal function was improving - abx per medical team - follow cultures - cont wound care
[2020-04-29] MEDS ORDERED: INSULIN (NOVOLOG) ASPART 100 UNITS/ML 10ML VIAL ONE (20:50)
[2020-04-29] MEDS: ATORVASTATIN CA 40 MG TABLET (FP) PO SCH (21:40)
[2020-04-30] MEDS ORDERED: DEXTROSE 5%-WATER - 50 ML IVPB ONE ×2 (00:41→10:20)
[2020-04-30] MEDS ORDERED: PIPERACILLIN/TAZOBACTAM 3.375 GM VIAL IVPB ONE ×2 (00:41→10:20)
[2020-04-30] MEDS: oxyCODONE HCL 5 MG TABLET PO PRN (00:49)
[2020-04-30] MEDS: PIPERACILLIN/TAZOB 3.375 GM 3.375 GM in DEXTROSE 5%-WATER - 50 ML IVPB SCH ×3 (02:00→17:43)
[2020-04-30] MEDS: HEPARIN NA (PORCINE) 5,000 UNITS/ML 1ML VIAL SQ SCH ×3 (06:08→21:24)
[2020-04-30] MEDS: INSULIN SLIDING SCALE (NOVOLOG) 1 VIAL SQ SCH ×4 (06:09→21:25)
[2020-04-30] MEDS: INSULIN (LEVEMIR) 100 UNITS/ML UNITS SQ SCH ×2 (06:51→21:24)
[2020-04-30 09:02] LABS: BASO % 0.5 % (0-2.0); EOS % 2.1 % (0-4.5); HEMATOCRIT 43.3 % (35.4-49); HEMOGLOBIN 14.4 GM/dL (11.7-16.9); LYMPH % 33.7 % (8-40); MCH 30.3 pg (25.7-33.7); MCHC 33.2 g/dl (32.0-35.9); MEAN CELL VOLUME 91.2 fl (80-96); MEAN PLT VOLUME 8.4 fl (7.5-11.1); MONO % 6.2 % (3.8-10.2); NEUT % 57.5 % (42.8-82.8); PLATELET COUNT 261 K/MM3 (134-434); RBC 4.75 M/mm3 (4.00-5.60); RDW 13.8 % (11.9-15.9); WHITE BLOOD COUNT 7.5 K/mm3 (4.0-10.0)
[2020-04-30 09:29] LABS: CALCIUM 8.7 mg/dL (8.5-10.1); POTASSIUM 4.5 mmol/L (3.5-5.1)
[2020-04-30 09:38] LABS: ALBUMIN 2.9 g/dl (3.4-5.0); BILIRUBIN,TOTAL 0.7 mg/dL (0.2-1); BLOOD UREA NITROGEN 15.2 mg/dL (7-18); CREATININE 1.4 mg/dL (0.55-1.3); MAGNESIUM 2.3 mg/dL (1.8-2.4); TOT PROT 6.8 g/dl (6.4-8.2)
[2020-04-30] MEDS: CARVEDILOL 25 MG TABLET (FP) PO SCH ×2 (10:30→21:23)
[2020-04-30] MEDS: FAMOTIDINE 20 MG TABLET PO SCH ×2 (10:30→21:23)
--- NOTE | 2020-04-30 11:29 | PN ---
Progress Note, Physician History of Present Illness: patient comfortably sleeping had pain received tylenolol - Current Medication List Current Medications: Active Medications Acetaminophen (Ofirmev Injection -) 1,000 mg IVPB Q6H PRN PRN Reason: PAIN LEVEL 1-5 Last Admin: 04/30/20 08:39 Dose: 1,000 mg Documented by: Atorvastatin Calcium (Lipitor -) 40 mg PO HS [facility] Last Admin: 04/29/20 21:40 Dose: 40 mg Documented by: Carvedilol (Coreg -) 25 mg PO BID [facility] Last Admin: 04/30/20 10:30 Dose: 25 mg Documented by: Famotidine (Pepcid -) 20 mg PO BID [facility] Last Admin: 04/30/20 10:30 Dose: 20 mg Documented by: Heparin Sodium (Porcine) (Heparin -) 5,000 unit SQ TID [facility] Last Admin: 04/30/20 06:08 Dose: 5,000 unit Documented by: Piperacillin Sod/Tazobactam (Sod 3.375 gm/ Dextrose) 50 mls @ 100 mls/hr IVPB Q8H-IV [facility] Last Admin: 04/30/20 10:30 Dose: 100 mls/hr Documented by: Sodium Chloride (Normal Saline -) 1,000 mls @ 125 mls/hr IV ASDIR [facility] Last Admin: 04/29/20 16:26 Dose: 125 mls/hr Documented by: Insulin Aspart (Novolog Vial Sliding Scale -) 1 vial SQ ACHS [facility]; Protocol Last Admin: 04/30/20 06:09 Dose: Not Given Documented by: Insulin Detemir (Levemir Vial) 15 units SQ BID@0700,2200 [facility] Last Admin: 04/30/20 06:51 Dose: 15 units Documented by: Ondansetron HCl (Zofran Injection) 4 mg IVPUSH Q6H PRN PRN Reason: NAUSEA AND/OR VOMITING Oxycodone HCl (Roxicodone -) 10 mg PO Q6H PRN PRN Reason: PAIN LEVEL 7 - 10 Last Admin: 04/30/20 00:49 Dose: 10 mg Documented by: Oxycodone HCl (Roxicodone -) 5 mg PO Q6H PRN PRN Reason: PAIN LEVEL 4 - 6 - Objective Vital Signs: Vital Signs Temperature 98.5 F 04/30/20 10:05 Pulse Rate 89 09/18/20 10:05 Respiratory Rate 20 04/30/20 10:05 Blood Pressure 150/69 04/30/20 10:05 O2 Sat by Pulse Oximetry (%) 95 04/30/20 10:05 Constitutional: Yes: No Distress, Calm, Obese Cardiovascular: Yes: S1, S2 Respiratory: Yes: Regular Gastrointestinal: Yes: Normal Bowel Sounds, Soft Musculoskeletal: Yes: WNL Extremities: Yes: Other Wound/Incision: Yes: Dressing Dry and Intact Neurological: Yes: Alert, Oriented Labs: CBC, BMP 04/30/20 08:20 04/30/20 08:20 Assessment/Plan Problem List - Problems (1) Cellulitis and abscess of foot Code(s): L03.119 - CELLULITIS OF UNSPECIFIED PART OF LIMB; L02.619 - CUTANEOUS ABSCESS OF UNSPECIFIED FOOT (2) Hyperlipidemia Code(s): E78.5 - HYPERLIPIDEMIA, UNSPECIFIED Qualifiers: Hyperlipidemia type: pure hypercholesterolemia Qualified Code(s): E78.00 - Pure hypercholesterolemia, unspecified; E78.0 - Pure hypercholesterolemia (3) [id number] kidney injury Code(s): N17.9 - ACUTE KIDNEY FAILURE, UNSPECIFIED; N18.9 - CHRONIC KIDNEY DISEASE, UNSPECIFIED Qualifiers: Chronic kidney disease stage: stage 2 (mild) (4) Paroxysmal atrial fibrillation Code(s): I48.0 - PAROXYSMAL ATRIAL FIBRILLATION (5) HTN (hypertension) Code(s): I10 - ESSENTIAL (PRIMARY) HYPERTENSION Qualifiers: Hypertension type: essential hypertension Qualified Code(s): I10 - Essential (primary) hypertension (6) Foot abscess, left Assessment/Plan: Code(s): L02.612 - CUTANEOUS ABSCESS OF LEFT FOOT (7) Diabetes Code(s): E11.9 - TYPE 2 DIABETES MELLITUS WITHOUT COMPLICATIONS plan continue abx awaiting identification of the bacteria will d/w podiatry rest as per the team
[2020-04-30] MEDS: SODIUM CHLORIDE 1,000 ML IV SCH (12:12)
--- NOTE | 2020-04-30 13:09 | PN ---
Progress Note (short form) - Note Progress Note: 59 year old poorly controlled diabetic male presents with left midfoot swelling and redness. POD 1 from left foot I and D. Doing well. Ready to go home. PMHX: HTN, DM, a-fib (unknown AC status), CAD, GERD, and DJD, polysubstance abuse Meds: noted ALL: morphine MEGAN: L foot: Pedal pulses weakly palpable, TG warm-warm, CFT brisk to all digits. There are no ischemic changes to the foot. incision side centrally on left foot partially closed with sutures intact, minimal erythema, minimal serous drainage, no purulence, no streaking noted, mild POP noted Imp: 59 year old poorly controlled diabetic male with left foot abscess cellulitis Evaluated and reviewed no further abscess formation noted on drainage minimal purulence was noted and did not appear to go down to bone Likely can avoid lobsterman IV abx but will defer final decision to ID from podiatry standpoint will need wound flushed daily with betadine/saline mix so may benefit from home nursing for a few weeks other than that patient is stable once final micro and abx choice is determined.
--- NOTE | 2020-04-30 13:47 | PN ---
Progress Note, Physician History of Present Illness: Pt seen and examined at bedside. He is awake and alert. he denies fevers. - Current Medication List Current Medications: Active Medications Acetaminophen (Ofirmev Injection -) 1,000 mg IVPB Q6H PRN PRN Reason: PAIN LEVEL 1-5 Last Admin: 04/30/20 08:39 Dose: 1,000 mg Documented by: Atorvastatin Calcium (Lipitor -) 40 mg PO HS [facility] Last Admin: 04/29/20 21:40 Dose: 40 mg Documented by: Carvedilol (Coreg -) 25 mg PO BID [facility] Last Admin: 04/30/20 10:30 Dose: 25 mg Documented by: Famotidine (Pepcid -) 20 mg PO BID [facility] Last Admin: 04/30/20 10:30 Dose: 20 mg Documented by: Heparin Sodium (Porcine) (Heparin -) 5,000 unit SQ TID [facility] Last Admin: 04/30/20 06:08 Dose: 5,000 unit Documented by: Piperacillin Sod/Tazobactam (Sod 3.375 gm/ Dextrose) 50 mls @ 100 mls/hr IVPB Q8H-IV [facility] Last Admin: 04/30/20 10:30 Dose: 100 mls/hr Documented by: Sodium Chloride (Normal Saline -) 1,000 mls @ 125 mls/hr IV ASDIR [facility] Last Admin: 04/30/20 12:12 Dose: Not Given Documented by: Insulin Aspart (Novolog Vial Sliding Scale -) 1 vial SQ ACHS [facility]; Protocol Last Admin: 04/30/20 12:11 Dose: 6 units Documented by: Insulin Detemir (Levemir Vial) 15 units SQ BID@0700,2200 [facility] Last Admin: 04/30/20 06:51 Dose: 15 units Documented by: Ondansetron HCl (Zofran Injection) 4 mg IVPUSH Q6H PRN PRN Reason: NAUSEA AND/OR VOMITING Oxycodone HCl (Roxicodone -) 10 mg PO Q6H PRN PRN Reason: PAIN LEVEL 7 - 10 Last Admin: 04/30/20 00:49 Dose: 10 mg Documented by: Oxycodone HCl (Roxicodone -) 5 mg PO Q6H PRN PRN Reason: PAIN LEVEL 4 - 6 - Objective Vital Signs: Vital Signs Temperature 98.5 F 04/30/20 10:05 Pulse Rate 89 04/30/20 10:05 Respiratory Rate 20 04/30/20 10:05 Blood Pressure 150/69 04/30/20 10:05 O2 Sat by Pulse Oximetry (%) 95 04/30/20 10:05 Constitutional: Yes: Calm Eyes: Yes: Conjunctiva Clear HENT: Yes: Atraumatic Neck: Yes: Supple Cardiovascular: Yes: S1, S2 Respiratory: Yes: CTA Bilaterally Gastrointestinal: Yes: Normal Bowel Sounds, Soft Genitourinary: Yes: WNL Musculoskeletal: Yes: WNL Edema: No Wound/Incision: Yes: Dressing Dry and Intact Neurological: Yes: Oriented Labs: CBC, BMP 04/30/20 08:20 04/30/20 08:20 Assessment/Plan Current Medications Generic Name Dose Route Start Last Admin Trade Name Freq PRN Reason Stop Dose Admin Acetaminophen 1,000 mg 04/29/20 12:09 04/30/20 08:39 Ofirmev Injection - IVPB 1,000 mg Q6H PRN Administration PAIN LEVEL 1-5 Atorvastatin Calcium 40 mg 04/29/20 22:00 04/29/20 21:40 Lipitor - PO 40 mg HS [facility]IP Administration Carvedilol 25 mg 04/29/20 22:00 04/30/20 10:30 Coreg - PO 25 mg BID [facility] Administration Famotidine 20 mg 04/29/20 22:00 04/30/20 10:30 Pepcid - PO 20 mg BID [facility] Administration Heparin Sodium (Porcine) 5,000 unit 04/29/20 14:00 04/30/20 06:08 Heparin - SQ 5,000 unit TID [facility] Administration Piperacillin Sod/Tazobactam 50 mls @ 100 mls/hr 04/29/20 18:00 04/30/20 10:30 Sod 3.375 gm/ Dextrose IVPB 100 mls/hr Q8H-IV [facility] Administration Sodium Chloride 1,000 mls @ 125 mls/hr 04/29/20 12:09 04/30/20 12:12 Normal Saline - IV Not Given ASDIR [facility] Insulin Aspart 1 vial 04/29/20 16:30 04/30/20 12:11 Novolog Vial Sliding Scale - SQ 6 units ACHS [facility] Administration Protocol Insulin Detemir 15 units 04/29/20 22:00 04/30/20 06:51 Levemir Vial SQ 15 units BID@0700,2200 [facility] Administration Ondansetron HCl 4 mg 04/29/20 12:11 Zofran Injection IVPUSH Q6H PRN NAUSEA AND/OR VOMITING Oxycodone HCl 10 mg 04/29/20 13:52 04/30/20 00:49 Roxicodone - PO 10 mg Q6H PRN Administration PAIN LEVEL 7 - 10 Oxycodone HCl 5 mg 04/29/20 13:54 Roxicodone - PO Q6H PRN PAIN LEVEL 4 - 6 Laboratory Tests 04/28/20 19:11 Urine Protein Trace Urine Glucose (UA) 3+ H Urine Blood Negative Impression: TAMARA Hypertension Cellulitis Hyperlipidemia, Diabetes mellitus, Afib Coronary artery disease Pseudohyponatremia Plan - cont to monitor renal function - change fluids to 1/2 ns and decrease rate - repeat labs in am - abx per medical team - wound care - follow cultures
[2020-04-30] MEDS: SODIUM CHLORIDE 0.45% 1,000 ML IV SCH (14:15)
--- NOTE | 2020-04-30 17:17 | PN ---
Physical Exam: SUBJECTIVE: Patient sleeping during rounds. OBJECTIVE: Patient is a 59 year old male with a significant past medical history of HTN, DM, CAD, GERD, and DJD c/o LLE pain and swelling after trauma while in the swimming pool. He reports that he was attempting to get out of a swimming pool and he stepped into surrounding foliage. He states that he did not remember breaking skin or bleeding. He did not take any medication or attempt treatment at home. Over the course of the subsequent 2 days, his foot began to swell and become red, which prompted him to come to the hospital on 04/26. He was given abx and then eloped. He returned 04/28 due to worsening pain. He is s/p washout on 04/29/2020, foot dressing, dry and intact. Continues on Zosyn. Vital Signs Period Temp Pulse Resp BP Sys/Bello Pulse Ox Last 24 Hr 97.6 F-98.7 F 67-94 18-20 123-156/69-91 95-98 GENERAL: The patient is sleeping during rounds, appears comfortable at rest and just received pain medications. HEAD: Normal with no signs of trauma. EYES: PERRL, extraocular movements intact, sclera anicteric, conjunctiva clear. No ptosis. ENT: Ears normal, nares patent LUNGS: not auscultated, breathing easy and unlabored on room air HEART: not auscultated, pt asleep, did not awaken him as he can become bellig erent EXTREMITIES: left foot dressing intact/s/p I&D Laboratory Results - last 24 hr 04/29/20 04/30/20 04/30/20 21:36 06:07 08:20 WBC 7.5 RBC 4.75 Hgb 14.4 Hct 43.3 MCV 91.2 MCH 30.3 MCHC 33.2 RDW 13.8 Plt Count 261 MPV 8.4 Absolute Neuts (auto) 4.3 Neutrophils % 57.5 Lymphocytes % 33.7 D Monocytes % 6.2 Eosinophils % 2.1 Basophils % 0.5 Nucleated RBC % 0 Sodium Potassium Chloride Carbon Dioxide Anion Gap BUN Creatinine Est GFR (CKD-EPI)AfAm Est GFR (CKD-EPI)NonAf POC Glucometer 322 148 Random Glucose Calcium Magnesium Total Bilirubin AST ALT Alkaline Phosphatase Total Protein Albumin 04/30/20 04/30/20 08:20 12:09 WBC RBC Hgb Hct MCV MCH MCHC RDW Plt Count MPV Absolute Neuts (auto) Neutrophils % Lymphocytes % Monocytes % Eosinophils % Basophils % Nucleated RBC % Sodium 137 Potassium 4.5 Chloride 107 Carbon Dioxide 24 Anion Gap 6 L BUN 15.2 Creatinine 1.4 H Est GFR (CKD-EPI)AfAm 63.29 Est GFR (CKD-EPI)NonAf 54.60 POC Glucometer 232 Random Glucose 210 H Calcium 8.7 Magnesium 2.3 Total Bilirubin 0.7 AST 13 L ALT 24 Alkaline Phosphatase 88 Total Protein 6.8 Albumin 2.9 L Active Medications Generic Name Dose Route Start Last Admin Trade Name Freq PRN Reason Stop Dose Admin Acetaminophen 1,000 mg 04/29/20 12:09 04/30/20 08:39 Ofirmev Injection - IVPB 1,000 mg Q6H PRN Administration PAIN LEVEL 1-5 Atorvastatin Calcium 40 mg 04/29/20 22:00 04/29/20 21:40 Lipitor - PO 40 mg HS CHIP Administration Carvedilol 25 mg 04/29/20 22:00 04/30/20 10:30 Coreg - PO 25 mg BID CHIP Administration Famotidine 20 mg 04/29/20 22:00 04/30/20 10:30 Pepcid - PO 20 mg BID CHIP Administration Heparin Sodium (Porcine) 5,000 unit 04/29/20 14:00 04/30/20 14:17 Heparin - SQ 5,000 unit TID CHIP Administration Piperacillin Sod/Tazobactam 50 mls @ 100 mls/hr 04/29/20 18:00 04/30/20 10:30 Sod 3.375 gm/ Dextrose IVPB 100 mls/hr Q8H-IV CHIP Administration Sodium Chloride 1,000 mls @ 75 mls/hr 04/30/20 14:00 04/30/20 14:15 1/2 Normal Saline IV 75 mls/hr ASDIR CHIP Administration Insulin Aspart 1 vial 04/29/20 16:30 04/30/20 12:11 Novolog Vial Sliding Scale - SQ 6 units ACHS CHIP Administration Protocol Insulin Detemir 15 units 04/29/20 22:00 04/30/20 06:51 Levemir Vial SQ 15 units BID@0700,2200 CHIP Administration Ondansetron HCl 4 mg 04/29/20 12:11 Zofran Injection IVPUSH Q6H PRN NAUSEA AND/OR VOMITING Oxycodone HCl 10 mg 04/29/20 13:52 04/30/20 00:49 Roxicodone - PO 10 mg Q6H PRN Administration PAIN LEVEL 7 - 10 Oxycodone HCl 5 mg 04/29/20 13:54 Roxicodone - PO Q6H PRN PAIN LEVEL 4 - 6 ASSESSMENT/PLAN: Problem List - Problems (1) Cellulitis and abscess of foot Assessment/Plan: patient is s/p POD#1 I&D of left foot with podiatry no further abscess formation noted. Per podiatry note: "on drainage minimal purulence was noted and did not appear to go down to bone. Likely can avoid jail IV abx but will defer final decision to ID from podiatry standpoint will need wound flushed daily with betadine/saline mix so may benefit from home nursing for a few weeks other than that patient is stable once final micro and abx choice is determined" Per ID, will await final culture before deciding of final recommendations of antibiotics Code(s): L03.119 - CELLULITIS OF UNSPECIFIED PART OF LIMB; L02.619 - CUTANEOUS ABSCESS OF UNSPECIFIED FOOT (2) Hyperlipidemia Code(s): E78.5 - HYPERLIPIDEMIA, UNSPECIFIED Qualifiers: Hyperlipidemia type: pure hypercholesterolemia Qualified Code(s): E78.00 - Pure hypercholesterolemia, unspecified; E78.0 - Pure hypercholesterolemia (3) Syalx-tp-adfgrur kidney injury Assessment/Plan: renal dose medications. monitor Rosio with daily labs Code(s): N17.9 - ACUTE KIDNEY FAILURE, UNSPECIFIED; N18.9 - CHRONIC KIDNEY DISEASE, UNSPECIFIED Qualifiers: Chronic kidney disease stage: stage 2 (mild) (4) Paroxysmal atrial fibrillation Assessment/Plan: rate controlled on metoprolol not on a/c, unclear as to why, attempted to discuss with patient but he became angry and belligerent Code(s): I48.0 - PAROXYSMAL ATRIAL FIBRILLATION (5) HTN (hypertension) Assessment/Plan: bp on the lower end, will hold norvasc 5, continue coreq bid losartan and hctz on hold for rosio Code(s): I10 - ESSENTIAL (PRIMARY) HYPERTENSION Qualifiers: Hypertension type: essential hypertension Qualified Code(s): I10 - Essential (primary) hypertension (6) Diabetes Assessment/Plan: diabetes uncontrolled. a1c 13.9 on levemir bid, monitor and adjust SS Code(s): E11.9 - TYPE 2 DIABETES MELLITUS WITHOUT COMPLICATIONS (7) DVT prophylaxis Assessment/Plan: on heparin Code(s): Z29.9 - ENCOUNTER FOR PROPHYLACTIC MEASURES, UNSPECIFIED Visit type - Emergency Visit Emergency Visit: Yes ED Registration Date: 04/27/20 Care time: The patient presented to the Emergency Department on the above date and was hospitalized for further evaluation of their emergent condition. - New Patient This patient is new to me today: No - Critical Care Critical Care patient: No - Discharge Referral Referred to [facility] Med P.C.: No
[2020-04-30] MEDS ORDERED: INSULIN (NOVOLOG) ASPART 100 UNITS/ML 10ML VIAL ONE ×2 (17:20→20:49)
[2020-04-30] MEDS: ATORVASTATIN CA 40 MG TABLET (FP) PO SCH (21:24)
[2020-05-01] MEDS: AMOX TR/POT CLAV 875MG/125MG TABLETS (FP) PO SCH ×2 (03:00→09:00)
[2020-05-01] MEDS: INSULIN SLIDING SCALE (NOVOLOG) 1 VIAL SQ SCH ×2 (06:32→11:27)
[2020-05-01] MEDS: HEPARIN NA (PORCINE) 5,000 UNITS/ML 1ML VIAL SQ SCH ×2 (06:32→14:46)
[2020-05-01] MEDS: INSULIN (LEVEMIR) 100 UNITS/ML UNITS SQ SCH (06:33)
[2020-05-01 08:36] LABS: BASO % 0.4 % (0-2.0); EOS % 2.2 % (0-4.5); HEMATOCRIT 41.3 % (35.4-49); HEMOGLOBIN 14.1 GM/dL (11.7-16.9); LYMPH % 32.1 % (8-40); MCH 31.3 pg (25.7-33.7); MCHC 34.1 g/dl (32.0-35.9); MEAN CELL VOLUME 91.6 fl (80-96); MEAN PLT VOLUME 8.8 fl (7.5-11.1); MONO % 6.3 % (3.8-10.2); PLATELET COUNT 215 K/MM3 (134-434); RDW 13.7 % (11.9-15.9); WHITE BLOOD COUNT 6.7 K/mm3 (4.0-10.0)
[2020-05-01] MEDS: oxyCODONE HCL 5 MG TABLET PO PRN (08:59)
[2020-05-01] MEDS: CARVEDILOL 25 MG TABLET (FP) PO SCH (09:00)
[2020-05-01] MEDS: FAMOTIDINE 20 MG TABLET PO SCH (09:00)
[2020-05-01 09:08] LABS: ALBUMIN 2.8 g/dl (3.4-5.0); BILIRUBIN,TOTAL 0.5 mg/dL (0.2-1); BLOOD UREA NITROGEN 12.4 mg/dL (7-18); CREATININE 1.2 mg/dL (0.55-1.3); MAGNESIUM 2.1 mg/dL (1.8-2.4); POTASSIUM 4.4 mmol/L (3.5-5.1); TOT PROT 6.4 g/dl (6.4-8.2)
--- NOTE | 2020-05-01 10:27 | PN ---
Progress Note (short form) - Note Progress Note: Podiatry F/U: Seen/evaluated at bedside NAD. Denies F/V/N/C/SOB/CP. Afebrile. S/p left foot incision and drainage. Feeling good, just has itching around the surgical site of the left foot. MEGAN: L foot: Surgical dressing clean, dry, intact. No active bleeding, no bandage strikethrough. Pedal pulses palpable, TG wnl, CFT brisk to all digits. There are no ischemic changes to the foot. The foot is warm and well perfused. Sutures well coapted proximally and distally. Central aspect with diabetic ulcer with mostly granular base and minimal slough. There is no purulent drainage, no fluctuance. Resolving erythema. No streaking ascending cellulitis. No signs of active infection. Wound Cx: enterobacter Imp: 59 year old diabetic male s/p left foot incision and drainage of abscess 1. Patient's IV has been dislodged numerous times throughout the night. From my standpoint, the foot is much improved and can use PO abx. Dr. Craig will make d/c recommendations. 2. DSD applied to the left foot. Patient instructed to keep the dressing clean, dry, intact until I see him in the wound healing center. 3. Partial WB L foot with surgical shoe. 4. Upon discharge, will need follow up with me this 05/04/20, at the wound healing center. [phone]. No further podiatric intervention at this time. Jaden Jerome DPM
[2020-05-01] MEDS ORDERED: diphenhydrAMINE HCL 25 MG CAPSULE (FP) PO PRN (10:32)
[2020-05-01] MEDS ORDERED: INSULIN (NOVOLOG) ASPART 100 UNITS/ML 10ML VIAL ONE ×2 (11:25→14:53)
[2020-05-01 13:18] VITALS: PULSE 82
--- NOTE | 2020-05-01 13:19 | PN ---
Progress Note, Physician History of Present Illness: patient comfortable no new issues - Current Medication List Current Medications: Active Medications Acetaminophen (Ofirmev Injection -) 1,000 mg IVPB Q6H PRN PRN Reason: PAIN LEVEL 1-5 Last Admin: 04/30/20 08:39 Dose: 1,000 mg Documented by: Amoxicillin/Clavulanate Potassium (Augmentin - 875mg Tablet) 1 tab PO BID [facility] Last Admin: 05/01/20 09:00 Dose: 1 tab Documented by: Atorvastatin Calcium (Lipitor -) 40 mg PO HS [facility] Last Admin: 04/30/20 21:24 Dose: 40 mg Documented by: Carvedilol (Coreg -) 25 mg PO BID [facility] Last Admin: 05/01/20 09:00 Dose: 25 mg Documented by: Diphenhydramine HCl (Benadryl -) 25 mg PO Q6H PRN PRN Reason: FOR ITCHING Last Admin: 05/01/20 10:54 Dose: 25 mg Documented by: Famotidine (Pepcid -) 20 mg PO BID [facility] Last Admin: 05/01/20 09:00 Dose: 20 mg Documented by: Heparin Sodium (Porcine) (Heparin -) 5,000 unit SQ TID [facility] Last Admin: 05/01/20 06:32 Dose: 5,000 unit Documented by: Sodium Chloride (1/2 Normal Saline) 1,000 mls @ 75 mls/hr IV ASDIR [facility] Last Admin: 04/30/20 14:15 Dose: 75 mls/hr Documented by: Insulin Aspart (Novolog Vial Sliding Scale -) 1 vial SQ ACHS [facility]; Protocol Last Admin: 05/01/20 11:27 Dose: 6 units Documented by: Insulin Detemir (Levemir Vial) 15 units SQ BID@0700,2200 [facility] Last Admin: 05/01/20 06:33 Dose: 15 units Documented by: Ondansetron HCl (Zofran Injection) 4 mg IVPUSH Q6H PRN PRN Reason: NAUSEA AND/OR VOMITING Oxycodone HCl (Roxicodone -) 10 mg PO Q6H PRN PRN Reason: PAIN LEVEL 7 - 10 Last Admin: 05/01/20 08:59 Dose: 10 mg Documented by: Oxycodone HCl (Roxicodone -) 5 mg PO Q6H PRN PRN Reason: PAIN LEVEL 4 - 6 - Objective Vital Signs: Vital Signs Temperature 98.6 F 05/01/20 06:00 Pulse Rate 67 05/01/20 06:00 Respiratory Rate 18 04/30/20 21:00 Blood Pressure 157/65 05/01/20 06:00 O2 Sat by Pulse Oximetry (%) 97 05/01/20 09:00 Constitutional: Yes: No Distress, Calm Cardiovascular: Yes: S1, S2 Respiratory: Yes: Regular, CTA Bilaterally Gastrointestinal: Yes: Normal Bowel Sounds, Soft Musculoskeletal: Yes: WNL Extremities: Yes: Other Wound/Incision: Yes: Dressing Dry and Intact Neurological: Yes: Alert, Oriented Psychiatric: Yes: Alert, Oriented Labs: CBC, BMP 05/01/20 07:40 05/01/20 07:40 Assessment/Plan Problem List - Problems (1) Cellulitis and abscess of foot Code(s): L03.119 - CELLULITIS OF UNSPECIFIED PART OF LIMB; L02.619 - CUTANEOUS ABSCESS OF UNSPECIFIED FOOT (2) Hyperlipidemia Code(s): E78.5 - HYPERLIPIDEMIA, UNSPECIFIED Qualifiers: Hyperlipidemia type: pure hypercholesterolemia Qualified Code(s): E78.00 - Pure hypercholesterolemia, unspecified; E78.0 - Pure hypercholesterolemia (3) Ltxke-qt-oeskbae kidney injury Code(s): N17.9 - ACUTE KIDNEY FAILURE, UNSPECIFIED; N18.9 - CHRONIC KIDNEY DISEASE, UNSPECIFIED Qualifiers: Chronic kidney disease stage: stage 2 (mild) (4) Paroxysmal atrial fibrillation Code(s): I48.0 - PAROXYSMAL ATRIAL FIBRILLATION (5) HTN (hypertension) Code(s): I10 - ESSENTIAL (PRIMARY) HYPERTENSION Qualifiers: Hypertension type: essential hypertension Qualified Code(s): I10 - Essential (primary) hypertension (6) Foot abscess, left Assessment/Plan: Code(s): L02.612 - CUTANEOUS ABSCESS OF LEFT FOOT (7) Diabetes Code(s): E11.9 - TYPE 2 DIABETES MELLITUS WITHOUT COMPLICATIONS plan continue abx bacteria noted can be d/teddy on oral levaquin 750 mg daily for 7 more days
--- NOTE | 2020-05-01 14:21 | DS ---
Physical Exam: SUBJECTIVE: Patient seen and examined at the bedside. patient denies any malaise or discomfort. patient agrees for home discharge today and will follow up on Sunday with Dr. White. He was to be sent home on insulin but had insurance issues and the cost of the deductible for insulin is $272. Patient is unable to afford the insulin at this time and I spoke to pharmacist who informed me that they will give him the insulin and patient can then pay them on Sunday. I was also arranging help with SW on this issue. Patient left the unit before we can resolve this issue. He told me this morning that he will follow up with Dr. salamanca (caustic operator) and already has a animal sitter (Dr. Ramires). Patient told pharmacist that he will belt picker the insulin on Sunday when he comes for his podiatry appointment. OBJECTIVE: Patient is a 59 year old male with a significant past medical history of HTN, DM, CAD, GERD, and DJD c/o LLE pain and swelling after trauma while in the swimming pool. He reports that he was attempting to get out of a swimming pool and he stepped into surrounding foliage. He states that he did not remember breaking skin or bleeding. He did not take any medication or attempt treatment at home. Over the course of the subsequent 2 days, his foot began to swell and become red, which prompted him to come to the hospital on 04/26. He was given abx and then eloped. He returned 04/28 due to worsening pain. He is s/p washout on 04/29/2020, foot dressing, dry and intact. Patient to follow up with podiatry on Sunday at the wound care center. He has been taught how to self inject insulin and how to use a glucometer. Vital Signs Period Temp Pulse Resp BP Sys/Bello Pulse Ox Last 24 Hr 98.2 F-98.6 F 67-82 18-18 128-158/65-92 97-99 PHYSICAL EXAM GENERAL: The patient is awake, alert, and fully oriented, in no acute distress. HEAD: Normal with no signs of trauma. EYES: PERRL, extraocular movements intact, sclera anicteric, conjunctiva clear. ENT: Ears normal, nares patent, oropharynx clear without exudates, moist mucous membranes. NECK: Trachea midline, full range of motion, supple. LUNGS: Breath sounds equal, clear to auscultation bilaterally, no wheezes, no crackles, no accessory muscle use. HEART: Regular rate and rhythm, S1, S2 without murmur, rub or gallop. ABDOMEN: Soft, nontender, nondistended, normoactive bowel sounds, no guarding, no rebound, no hepatosplenomegaly, no masses. EXTREMITIES: 2+ pulses, warm, well-perfused, no edema. NEUROLOGICAL: Cranial nerves II through XII grossly intact. Normal speech, gait not observed. PSYCH: Normal mood, normal affect. SKIN: Warm, dry, normal turgor, no rashes or lesions noted. LABS Laboratory Results - last 24 hr 04/30/20 04/30/20 05/01/20 17:17 21:22 05:47 WBC RBC Hgb Hct MCV MCH MCHC RDW Plt Count MPV Absolute Neuts (auto) Neutrophils % Lymphocytes % Monocytes % Eosinophils % Basophils % Nucleated RBC % Sodium Potassium Chloride Carbon Dioxide Anion Gap BUN Creatinine Est GFR (CKD-EPI)AfAm Est GFR (CKD-EPI)NonAf POC Glucometer 199 200 255 Random Glucose Calcium Magnesium Total Bilirubin AST ALT Alkaline Phosphatase Total Protein Albumin 05/01/20 05/01/20 05/01/20 07:40 07:40 11:24 WBC 6.7 RBC 4.50 Hgb 14.1 Hct 41.3 MCV 91.6 MCH 31.3 MCHC 34.1 RDW 13.7 Plt Count 215 MPV 8.8 Absolute Neuts (auto) 4.0 Neutrophils % 59.0 Lymphocytes % 32.1 Monocytes % 6.3 Eosinophils % 2.2 Basophils % 0.4 Nucleated RBC % 0 Sodium 147 H Potassium 4.4 Chloride 115 H Carbon Dioxide 25 Anion Gap 7 L BUN 12.4 Creatinine 1.2 Est GFR (CKD-EPI)AfAm 76.25 Est GFR (CKD-EPI)NonAf 65.79 POC Glucometer 210 Random Glucose 233 H Calcium 8.0 L Magnesium 2.1 Total Bilirubin 0.5 AST 18 ALT 27 Alkaline Phosphatase 80 Total Protein 6.4 Albumin 2.8 L HOSPITAL COURSE: Date of Admission:04/27/20 Date of Discharge: 05/01/20 Minutes to complete discharge: 60 Discharge Summary Problems reviewed: Yes Reason For Visit: CELLULITIS Current Active Problems Cellulitis and abscess of foot (Acute) DVT prophylaxis (Acute) Diabetes (Acute) Foot abscess, left (Acute) Condition: Stable - Instructions Diet, Activity, Other Instructions: Mr Dooley You will be discharged home today. You were admitted for a left foot wound and have had a washout with the assembler dry cell and battery You will need follow with Dr. Jerome this 05/04/20, at the wound healing center at [facility] 5th floor ([address]). [phone]. Your diabetes is uncontrolled at this time. To better control it, we will be sending you home with insulin. Insulin is based on your blood sugars: Before each meal, test your blood sugars and use this sliding scale. You can continue the Metformin twice per day in addition to the Novolog. START LEVAQUIN 750MG ONCE DAY - FOR 7 DAYS START TODAY AND TAKE DAILY AT 8AM FOR 7 DAYS TOTAL If your insulin is give your self this much insulin 101 - 150 no coverage needed 151- 200 4 units 201 - 250 6 units 251 - 300 8 units 301 - 350 10 units 351- 400 12 units It is important that you follow up with your primary care doctor within 1 week of discharge to follow up on your diabetes. We have referred you to a animal sitter (Dr. Burch) and an caustic operator (Dr. Salamanca) for follow up. Thank you for allowing us to care for you. Referrals: Alec Westbrook MD [Staff Physician] - Minor Salamanca MD [Staff Physician] - Disposition: HOME - Home Medications Comprehensive Discharge Medication List: Ambulatory Orders Amlodipine Besylate [Norvasc -] 5 mg PO DAILY 04/26/20 Atorvastatin Calcium 40 mg PO HS 04/26/20 Carvedilol [Coreg -] 25 mg PO BID 04/26/20 Famotidine [Pepcid] 20 mg PO BID 04/26/20 Hydrochlorothiazide 12.5 mg PO DAILY 04/26/20 Losartan Potassium 100 mg PO DAILY 04/26/20 Alcohol Antiseptic Pads [Alcohol Prep Pad] 1 each TP TID #1 box 05/01/20 Amox-Tr/K Cl [Augmentin 875-125mg Tablet -] 1 tab PO BID tablet 05/01/20 Blood Sugar Diagnostic [Test Strips] 1 each MC TID #1 box 05/01/20 Insulin Sliding Scale [Novolog Vial Sliding Scale -] 1 vial SQ ACHS #6 units 05/01/20 Lancets 1 each MC TID #1 box 05/01/20 Metformin HCl [Glucophage] 500 mg PO BID #60 tablet 05/01/20 Miscellaneous Medical Supply [Glucometer Device] 1 each SCJ ASDIR #1 kit 05/01/20 [place], Disposable [Easy Touch Hypodermic Needle] 1 each MC TID #1 box 05/01/20 Syring-Needl,Disp,Insul,0.3 ml [Advocate Syringes] 1 each TID #90 disp.syrin 05/01/20 levoFLOXacin [Levaquin] 750 mg PO DAILY #7 tab 05/01/20 oxyCODONE HCL [Roxicodone -] 10 mg PO Q6H PRN #20 tablet MDD 2 05/01/20 Problem List - Problems (1) Cellulitis and abscess of foot Code(s): L03.119 - CELLULITIS OF UNSPECIFIED PART OF LIMB; L02.619 - CUTANEOUS ABSCESS OF UNSPECIFIED FOOT (2) Hyperlipidemia Code(s): E78.5 - HYPERLIPIDEMIA, UNSPECIFIED Qualifiers: Hyperlipidemia type: pure hypercholesterolemia Qualified Code(s): E78.00 - Pure hypercholesterolemia, unspecified; E78.0 - Pure hypercholesterolemia (3) Cgmqn-vn-rxibgzv kidney injury Code(s): N17.9 - ACUTE KIDNEY FAILURE, UNSPECIFIED; N18.9 - CHRONIC KIDNEY DISEASE, UNSPECIFIED Qualifiers: Chronic kidney disease stage: stage 2 (mild) (4) Paroxysmal atrial fibrillation Code(s): I48.0 - PAROXYSMAL ATRIAL FIBRILLATION (5) HTN (hypertension) Code(s): I10 - ESSENTIAL (PRIMARY) HYPERTENSION Qualifiers: Hypertension type: essential hypertension Qualified Code(s): I10 - Essential (primary) hypertension (6) Diabetes Code(s): E11.9 - TYPE 2 DIABETES MELLITUS WITHOUT COMPLICATIONS (7) DVT prophylaxis Code(s): Z29.9 - ENCOUNTER FOR PROPHYLACTIC MEASURES, UNSPECIFIED This patient is new to me today: No Emergency Visit: Yes ED Registration Date: 04/27/20 Care time: The patient presented to the Emergency Department on the above date and was hospitalized for further evaluation of their emergent condition. Critical Care patient: No - Discharge Referral Referred to [facility] Med P.C.: No
[2020-05-01] MEDS: SODIUM CHLORIDE 0.45% 1,000 ML IV SCH (14:47)
[2020-05-01 16:08] VITALS: BP 129/74; TEMP 98.3
--- NOTE | 2020-05-12 09:04 | OP ---
Operative Note - Note: Operative Date: 05/12/20 Pre-Operative Diagnosis: Left foot abscess Operation: left foot incision and drainage. Findings: Attention was directed to the left foot where overlying the dorsal midfoot there was a small notable abscess. At this time utilizing a #15 blade an incision was made. thi was deepened and the abscess was opened. Cultures were obtained. Roughly 10 cc of purulence was noted but no bone was exposed. At this time the wound was flushed with a pulse lavage w/o complication. The wound was partially closed with nylon and packed open with iodoform packing. Post-Operative Diagnosis: Same as Pre-op Surgeon: Fercho Banks Anesthesia: Local, MAC Specimens Removed: wound Culture Estimated Blood Loss (mls): 5 Operative Report Dictated: Yes
== END 2020-05-01 16:07 | disposition home health service (06) | DRG 603 ==
LOC: JER 13:20 → JERBED 14:32 → J6S 04-29 00:36
PROVIDERS: ATTEND Nurse Practitioner Family
PROC: 3E10X8Z Irrigation of Skin and Mucous Membranes using Irrigating Substance (ICD-10-PCS; 2020-04-29)
PROC: 0J9R0ZX Drainage of Left Foot Subcutaneous Tissue and Fascia, Open Approach, Diagnostic (ICD-10-PCS; principal; 2020-04-29 11:30)
DX: L03.116 Cellulitis of left lower limb (principal); N17.9 Acute kidney failure, unspecified; E87.1 Hypo-osmolality and hyponatremia; L02.91 Cutaneous abscess, unspecified; I25.10 Atherosclerotic heart disease of native coronary artery without angina pectoris; E11.9 Type 2 diabetes mellitus without complications; K21.9 Gastro-esophageal reflux disease without esophagitis; E11.65 Type 2 diabetes mellitus with hyperglycemia; E86.0 Dehydration; I48.0 Paroxysmal atrial fibrillation; E66.9 Obesity, unspecified; Z68.33 Body mass index [BMI] 33.0-33.9, adult; I12.9 Hypertensive chronic kidney disease with stage 1 through stage 4 chronic kidney disease, or unspecified chronic kidney disease; E11.22 Type 2 diabetes mellitus with diabetic chronic kidney disease; N18.9 Chronic kidney disease, unspecified
CPT/HCPCS: 36415; 80053; 81003; 82436; 82565; 82962; 83036; 83735; 84100; 84133; 84300; 85025; 87070; 87186; 87205; 93005; 93010; 94760; 99285-25; G0480; J0131; J1644; U0003

== ENCOUNTER 2020-11-22 20:19 | Emergency (ER) | payer BC, OTHER ==
[2020-11-22 20:56] VITALS: BP 186/133; PULSE 105; BMI 26.4
[2020-11-22 21:08] VITALS: TEMP 98.2
== END 2020-11-22 22:01 | disposition left against medical advice (07) ==
LOC: JER 20:19
DX: R00.0 Tachycardia, unspecified (principal); I10 Essential (primary) hypertension
CPT/HCPCS: 99282-25